=== PATIENT | male | born 1945 | race Caucasian/White ===

== ENCOUNTER 2016-12-20 16:56 | Emergency (ER) | payer BC, MEDICARE ==
[2016-12-20 17:30] VITALS: BP 116/93
[2016-12-20] MEDS ORDERED: Tetan/Diph/Pertus SYR(Tdap)* 0.5 ML SYR(BOOSTRIX) use SYR IM ONE (17:43)
--- NOTE | 2016-12-20 17:57 | UC ---
Bite Injury/Animal HPI - HPI Summary HPI Summary: PW from own dog bite to R thumb this morning. Dog is immunized for rabies. - History of Current Complaint Chief Complaint: UCBiteInjury Stated Complaint: RIGHT THUMB LACERATION Time Seen by Provider: 12/20/16 17:40 Hx Obtained From: Patient Severity Currently: Mild Severity Initially: Mild Onset/Duration: Sudden Onset Type of Bite: Animal Has Animal Been Immunized?: Yes Character: Puncture Aggravating Factor(s): Nothing Alleviating Factor(s): Nothing Associated Signs And Symptoms: Positive: Negative Animal Available for Observation: Yes Animal Control Notified: Yes - Allergies/Home Medications Allergies/Adverse Reactions: Allergies Allergy/AdvReac Type Severity Reaction Status Date / Time Codeine AdvReac Constipatio Verified 12/20/16 17:30 n PMH/Surg Hx/FS Hx/Imm Hx Endocrine History Of: Reports: Thyroid Disease - hypo - Surgical History Surgical History: Yes Surgery Procedure, Year, and Place: double hernia (inguinal). HEMORROID BANDING. pilonidal cyst. appy - Family History Known Family History: Positive: Hypertension - Social History Alcohol Use: Occasionally Alcohol Amount: once Substance Use Type: None Smoking Status (MU): Never Smoked Tobacco - Immunization History Most Recent Tetanus Shot: unknown Review of Systems Constitutional: Negative Skin: Other - PW R thumb Eyes: Negative ENT: Negative Respiratory: Negative Cardiovascular: Negative Gastrointestinal: Negative Genitourinary: Negative Motor: Negative Neurovascular: Negative Musculoskeletal: Negative Neurological: Negative Psychological: Negative All Other Systems Reviewed And Are Negative: Yes Physical Exam Triage Information Reviewed: Yes Appearance: Well-Appearing, No Pain Distress, Well-Nourished Vital Signs: Initial Vital Signs Temp 97.8 F 12/20/16 17:22 Pulse 70 12/20/16 17:22 Resp 16 12/20/16 17:22 BP 116/93 12/20/16 17:22 Pulse Ox 97 12/20/16 17:22 Vital Signs Reviewed: Yes Eye Exam: Normal Eyes: Positive: Conjunctiva Clear ENT Exam: Normal ENT: Positive: Normal ENT inspection, Hearing grossly normal, Pharynx normal, TMs normal Dental Exam: Normal Neck exam: Normal Neck: Positive: Supple, Nontender, No Lymphadenopathy Respiratory Exam: Normal Respiratory: Positive: Chest non-tender, Lungs clear, Normal breath sounds, No respiratory distress, No accessory muscle use Cardiovascular Exam: Normal Cardiovascular: Positive: RRR, No Murmur Musculoskeletal Exam: Normal Musculoskeletal: Positive: Strength Intact, ROM Intact Neurological Exam: Normal Psychological Exam: Normal Skin Exam: Other - 0.5cm PW to R thumb Bite Injury Course/Dx - Differential Dx/Diagnosis Provider Diagnoses: R thumb dog bite punture wound Discharge - Discharge Plan Condition: Stable Disposition: HOME Prescriptions: Amoxicillin/Clavulanate TAB* [Augmentin TAB 875*] 875 mg PO BID #10 tab Patient Education Materials: Animal Bite (ED) Referrals: Abi Herr PA [Primary Care Provider] - 3 Days Additional Instructions: Come back right away if there are red streaks coming up the wrist or arm or if you have increasing pain.
== END 2016-12-20 18:10 | disposition home or self-care (01) ==
LOC: UCCORT 16:56
DX: S61.031A Puncture wound without foreign body of right thumb without damage to nail, initial encounter (principal); W54.0XXA Bitten by dog, initial encounter; Y93.9 Activity, unspecified; Y92.9 Unspecified place or not applicable; Z23 Encounter for immunization; Z88.5 Allergy status to narcotic agent
CPT/HCPCS: 90715; 96372; 99212; G0463

== ENCOUNTER 2017-09-09 09:53 | Emergency (ER) | payer MEDICARE, BC ==
[2017-09-09 10:14] VITALS: BP 111/79
--- NOTE | 2017-09-09 10:51 | ED ---
Lower Extremity - HPI Summary HPI Summary: 72 yr old male with the complaint of left 4th toe injury. Onset of symptoms this morning when he was cutting his toe nails. He accidentally shaved the skin off the distal toe with the clipper. He had some bleeding but it has stopped now. He has had a tetanus shot within the past 6 months. No other complaints. - History of Current Complaint Chief Complaint: UCLowerExtremity Stated Complaint: LEFT FOOT/TOE COMPLAINT Time Seen by Provider: 09/09/17 10:37 - Allergies/Home Medications Allergies/Adverse Reactions: Allergies Allergy/AdvReac Type Severity Reaction Status Date / Time Gluten Meal Allergy Unknown Verified 09/09/17 10:10 Reaction Details Lactose Intolerance (GI) Allergy Unknown Verified 09/09/17 10:10 Reaction Details Codeine AdvReac Constipatio Verified 09/09/17 10:10 n Home Medications: Home Medications Prostate Medication 1 tab PO DAILY 09/09/17 [History] PMH/Surg Hx/FS Hx/Imm Hx Endocrine/Hematology History: Reports: Hx Thyroid Disease - Surgical History Surgery Procedure, Year, and Place: double hernia (inguinal). HEMORROID BANDING. pilonidal cyst. appy Infectious Disease History: No Infectious Disease History: Denies: Traveled Outside the [place] in Last 30 Days - Family History Known Family History: Positive: Hypertension - Social History Alcohol Use: Rare Alcohol Amount: once Substance Use Type: Reports: None Smoking Status (MU): Never Smoked Tobacco Review of Systems Constitutional: Negative Positive: Other - injury left 4th toe with clipping nails. All Other Systems Reviewed And Are Negative: Yes Physical Exam Triage Information Reviewed: Yes Vital Signs On Initial Exam: Initial Vitals Temp Pulse Resp BP Pulse Ox 97.5 F 80 16 111/79 97 09/09/17 10:09 09/09/17 10:09 09/09/17 10:09 09/09/17 10:09 09/09/17 10:09 Vital Signs Reviewed: Yes Appearance: Positive: Well-Appearing, No Pain Distress Skin: Positive: Other - left 4th toe distal tip with abrasion/ scraping of skin off the tip and bleeding controlled. This is not deep and does not go through the dermal layer. Head/Face: Positive: Normal Head/Face Inspection Neck: Positive: Supple Respiratory/Lung Sounds: Positive: Clear to Auscultation, Breath Sounds Present Cardiovascular: Positive: RRR. Negative: Murmur Abdomen Description: Positive: Nontender Musculoskeletal: Positive: Strength/ROM Intact Neurological: Positive: Sensory/Motor Intact, Alert, Oriented to Person Place, Time, CN Intact II-III Psychiatric: Positive: Normal - Tarik Coma Scale Best Eye Response: 4 - Spontaneous Best Motor Response: 6 - Obeys Commands Best Verbal Response: 5 - Oriented Diagnostics - Vital Signs Vital Signs Temp Pulse Resp BP Pulse Ox 09/09/17 10:09 97.5 F 80 16 111/79 97 - Laboratory Lab Statement: Any lab studies that have been ordered have been reviewed, and results considered in the medical decision making process. Lower Extremity Course/Dx - Course Course Of Treatment: 72 yr old male with shaving of skin off his distal 4th left toe. TD up to date. DC home. Clean, dressing applied by nursing. podiatry referral. - Diagnoses Provider Diagnoses: Avulsion of skin of toe Discharge - Discharge Plan Condition: Good Disposition: HOME Patient Education Materials: Acute Wound Care (ED) Referrals: Abi Herr PA [Primary Care Provider] - Alejandro Lucas DPM [Doctor of Podiatric Medicine] -
== END 2017-09-09 11:25 | disposition home or self-care (01) ==
LOC: UCCORT 09:53
DX: S91.105A Unspecified open wound of left lesser toe(s) without damage to nail, initial encounter (principal); W45.8XXA Other foreign body or object entering through skin, initial encounter; Y93.89 Activity, other specified; Y92.9 Unspecified place or not applicable; E07.9 Disorder of thyroid, unspecified; Z88.5 Allergy status to narcotic agent
CPT/HCPCS: 99212; G0463

== ENCOUNTER 2017-09-10 07:11 | Emergency (ER) | payer MEDICARE, BC ==
[2017-09-10 07:22] VITALS: BP 135/80
[2017-09-10] MEDS ORDERED: Gelfoam 12-7 ADSORBABL SPONGE* 1 EA SPONGE ONE (07:50)
[2017-09-10] MEDS ORDERED: Silver Nitrate/Potassium Nitr* 1 EA STICK ONE (07:51)
--- NOTE | 2017-09-10 08:16 | UC ---
Skin Complaint HPI - HPI Summary HPI Summary: left 4th toe skin avulsion when he was clipping his nails yesterday. It is bleeding through the dressing we placed yesterday. He is on daily baby aspirin. Denies other blood thinners. NO DM. - History of Current Complaint Chief Complaint: UCSkin Time Seen by Provider: 09/10/17 07:48 Stated Complaint: LT FOOT COMPLAINT/TOE COMPLAINT Hx Obtained From: Patient Onset/Duration: Gradual Onset, Lasting Hours Skin Exposure Onset/Duration: Hours Ago Timing: Constant Onset Severity: Moderate Current Severity: Mild Location: Discrete, Foot (Left) Aggravating Factor(s): Nothing Alleviating Factor(s): Nothing Associated Signs & Symptoms: Positive: Negative Related History: Trauma - Allergy/Home Medications Allergies/Adverse Reactions: Allergies Allergy/AdvReac Type Severity Reaction Status Date / Time Gluten Meal Allergy Unknown Verified 09/10/17 07:22 Reaction Details Lactose Intolerance (GI) Allergy Unknown Verified 09/10/17 07:22 Reaction Details Codeine AdvReac Constipatio Verified 09/10/17 07:22 n Review of Systems Skin: Other - bleeding from small wound. Is Patient Immunocompromised?: No All Other Systems Reviewed And Are Negative: Yes PMH/Surg Hx/FS Hx/Imm Hx Previously Healthy: No - Surgical History Surgical History: Yes Surgery Procedure, Year, and Place: double hernia (inguinal). HEMORROID BANDING. pilonidal cyst. appy - Family History Known Family History: Positive: Hypertension - Social History Alcohol Use: Rare Alcohol Amount: once Substance Use Type: None Smoking Status (MU): Never Smoked Tobacco - Immunization History Most Recent Influenza Vaccination: May 2017 Most Recent Tetanus Shot: 12/20/16 Physical Exam Triage Information Reviewed: Yes Appearance: Well-Appearing, No Pain Distress, Well-Nourished Vital Signs: Initial Vital Signs Temp 97.8 F 09/10/17 07:18 Pulse 83 09/10/17 07:18 Resp 18 09/10/17 07:18 BP 135/80 09/10/17 07:18 Pulse Ox 100 09/10/17 07:18 Vital Signs Reviewed: Yes Eyes: Positive: Conjunctiva Clear ENT: Positive: Normal ENT inspection. Negative: Hoarse voice Neck: Positive: Supple, Nontender, No Lymphadenopathy Respiratory: Positive: No respiratory distress, No accessory muscle use Cardiovascular: Positive: Brisk Capillary Refill Abdomen Description: Negative: Distended, Guarding Musculoskeletal: Positive: ROM Intact, No Edema Neurological: Positive: Alert, Muscle Tone Normal. Negative: Fatigued Skin Exam: Other - left tip of 4th toe small superficial avulsion of the skin. There is currently no bleeding but the gauze had dried blood. Laceration Repair - Laceration Repair 1 Description: Linear : No Repair Necessary Laceration Size After Repair: Length (cm) - o.5cm oval. Silvernitrate applied. Gel foam dressing. Modified For Repair: No Cleansing Completed Via Routine Prep: Yes Course/Dx - Diagnoses Provider Diagnoses: avulsion laceration. Bleeeding wound. silvernitrate for hemostasis. Discharge - Discharge Plan Condition: Good Disposition: HOME Patient Education Materials: Skin Avulsion (ED) Referrals: Abi Herr PA [Primary Care Provider] -
== END 2017-09-10 08:23 | disposition home or self-care (01) ==
LOC: UCCORT 07:11
DX: S91.115A Laceration without foreign body of left lesser toe(s) without damage to nail, initial encounter (principal); W45.8XXA Other foreign body or object entering through skin, initial encounter; Y93.89 Activity, other specified; Y92.9 Unspecified place or not applicable; Z79.82 Long term (current) use of aspirin; Z88.5 Allergy status to narcotic agent
CPT/HCPCS: 99213; A9270-GY; G0463

== ENCOUNTER 2017-10-14 07:59 | Emergency (ER) | payer MEDICARE, BC ==
[2017-10-14 08:14] VITALS: BP 124/75
--- NOTE | 2017-10-14 08:27 | ED ---
Respiratory - HPI Summary HPI Summary: 72 yr old male with the complaint of coughing. Onset two days ago. Denies fever, chills. He has non productive cough. He first had a runny nose two days ago. Denies SOB, CP. He is taking robitussin DM. - History of Current Complaint Chief Complaint: UCRespiratory Stated Complaint: COUGH Time Seen by Provider: 10/14/17 08:09 - Allergy/Home Medications Allergies/Adverse Reactions: Allergies Allergy/AdvReac Type Severity Reaction Status Date / Time Gluten Meal Allergy Unknown Verified 10/14/17 08:15 Reaction Details Lactose Intolerance (GI) Allergy Unknown Verified 10/14/17 08:15 Reaction Details Codeine AdvReac Constipatio Verified 10/14/17 08:15 n Home Medications: Home Medications Silodosin(NF) [Rapaflo(NF)] 8 mg PO QPM 10/14/17 [History Confirmed 10/14/17] PMH/Surg Hx/FS Hx/Imm Hx Endocrine/Hematology History: Reports: Hx Thyroid Disease - Surgical History Surgery Procedure, Year, and Place: double hernia (inguinal). HEMORROID BANDING. pilonidal cyst. appy Infectious Disease History: No Infectious Disease History: Denies: Traveled Outside the [place] in Last 30 Days - Family History Known Family History: Positive: Hypertension - Social History Occupation: Retired Alcohol Use: Rare Alcohol Amount: once Substance Use Type: Reports: None Smoking Status (MU): Never Smoked Tobacco Review of Systems Constitutional: Negative Positive: Nasal Discharge Positive: Cough. Negative: Shortness Of Breath All Other Systems Reviewed And Are Negative: Yes Physical Exam Triage Information Reviewed: Yes Vital Signs On Initial Exam: Initial Vitals Temp Pulse Resp BP Pulse Ox 98.1 F 80 18 124/75 96 10/14/17 08:12 10/14/17 08:12 10/14/17 08:12 10/14/17 08:12 10/14/17 08:12 Vital Signs Reviewed: Yes Appearance: Positive: Well-Appearing, No Pain Distress Skin: Positive: Warm, Skin Color Reflects Adequate Perfusion Head/Face: Positive: Normal Head/Face Inspection Eyes: Positive: EOMI ENT: Positive: Pharyngeal erythema, Nasal congestion, TMs normal Respiratory/Lung Sounds: Positive: Clear to Auscultation, Breath Sounds Present Cardiovascular: Positive: RRR. Negative: Murmur Abdomen Description: Positive: Nontender Musculoskeletal: Positive: Strength/ROM Intact Neurological: Positive: Sensory/Motor Intact, Alert, Oriented to Person Place, Time, CN Intact II-III Psychiatric: Positive: Normal - Tarik Coma Scale Best Eye Response: 4 - Spontaneous Best Motor Response: 6 - Obeys Commands Best Verbal Response: 5 - Oriented Diagnostics - Vital Signs Vital Signs Temp Pulse Resp BP Pulse Ox 10/14/17 08:12 98.1 F 80 18 124/75 96 - Laboratory Lab Statement: Any lab studies that have been ordered have been reviewed, and results considered in the medical decision making process. Disposition - Course Course Of Treatment: 72 yr old with cough, self limited. influenza is negative. DC home good condition. - Diagnoses Provider Diagnoses: Cough Discharge - Discharge Plan Condition: Good Disposition: HOME Patient Education Materials: Upper Respiratory Infection (ED) Referrals: Abi Herr PA [Primary Care Provider] - 2 Days
== END 2017-10-14 09:06 | disposition home or self-care (01) ==
LOC: UCCORT 07:59
DX: R05 Cough (principal); E73.9 Lactose intolerance, unspecified; Z91.018 Allergy to other foods; Z88.5 Allergy status to narcotic agent
CPT/HCPCS: 87502; 99211; G0463

== ENCOUNTER 2018-02-16 14:36 | Emergency (ER) | payer MEDICARE, BC ==
[2018-02-16 15:31] VITALS: BP 108/69
--- NOTE | 2018-02-16 16:25 | UC ---
Ear Complaint HPI - HPI Summary HPI Summary: patient is here to have left ear flushed - History of Current Complaint Chief Complaint: UCEar Stated Complaint: WAX IN EAR Time Seen by Provider: 02/16/18 15:20 Hx Obtained From: Patient Onset/Duration: Gradual Onset Pain Intensity: 0 Pain Scale Used: 0-10 Numeric Aggravating Factors: Nothing Alleviating Factors: Nothing - Allergies/Home Medications Allergies/Adverse Reactions: Allergies Allergy/AdvReac Type Severity Reaction Status Date / Time MS Gluten Meal [Gluten Meal] Allergy Unknown Verified 02/16/18 15:32 Reaction Details MS Lactose Intolerance (GI) Allergy Unknown Verified 02/16/18 15:32 [Lactose Intolerance (GI)] Reaction Details codeine AdvReac Constipatio Verified 02/16/18 15:32 n PMH/Surg Hx/FS Hx/Imm Hx Previously Healthy: No Endocrine History: Hypothyroidism - Surgical History Surgical History: Yes Surgery Procedure, Year, and Place: double hernia (inguinal). HEMORROID BANDING. pilonidal cyst. appy - Family History Known Family History: Positive: Hypertension - Social History Occupation: Retired Lives: With Family Alcohol Use: None Alcohol Amount: once Substance Use Type: None Smoking Status (MU): Never Smoked Tobacco - Immunization History Most Recent Influenza Vaccination: May 2017 Most Recent Tetanus Shot: 12/20/16 Review of Systems Constitutional: Negative Skin: Negative Eyes: Negative ENT: Negative, Other - cerumen impaction left ear Respiratory: Negative Cardiovascular: Negative Gastrointestinal: Negative Genitourinary: Negative Motor: Negative Neurovascular: Negative Musculoskeletal: Negative Neurological: Negative Psychological: Negative Is Patient Immunocompromised?: No All Other Systems Reviewed And Are Negative: Yes Physical Exam Triage Information Reviewed: Yes Appearance: Well-Appearing, No Pain Distress, Well-Nourished Vital Signs: Initial Vital Signs Temp 98.1 F 02/16/18 15:29 Pulse 75 02/16/18 15:29 Resp 18 02/16/18 15:29 BP 108/69 02/16/18 15:29 Pulse Ox 98 02/16/18 15:29 Vital Signs Reviewed: Yes Eye Exam: Normal Eyes: Positive: Conjunctiva Clear ENT Exam: Normal ENT: Positive: Normal ENT inspection, Hearing grossly normal, Pharynx normal, TMs normal - after flushing, Other - inital assessment both ears with cerumen--- . Negative: Nasal congestion, Nasal drainage, Trismus, Muffled voice, Hoarse voice Dental Exam: Normal Neck exam: Normal Neck: Positive: Supple, Nontender Respiratory Exam: Normal Respiratory: Positive: No respiratory distress, No accessory muscle use Cardiovascular Exam: Normal Cardiovascular: Positive: Pulses Normal, Brisk Capillary Refill Musculoskeletal Exam: Normal Musculoskeletal: Positive: Strength Intact, ROM Intact, No Edema Neurological Exam: Normal Neurological: Positive: Alert, Muscle Tone Normal Psychological Exam: Normal Skin Exam: Normal Ear Complaint Course/Dx - Course Course Of Treatment: patient reports resolve of symptoms, d/c to home follow with pcp - Differential Dx/Diagnosis Provider Diagnoses: Bilateral cerumen impaction resolved Discharge - Sign-Out/Discharge Documenting (check all that apply): Discharge/Admit/Transfer - Discharge Plan Condition: Stable Disposition: HOME Patient Education Materials: Cerumen Impaction (ED) Referrals: Abi Herr PA [Primary Care Provider] - If Needed - Billing Disposition and Condition Condition: STABLE Disposition: HOME
== END 2018-02-16 16:12 | disposition home or self-care (01) ==
LOC: UCCORT 14:36
DX: H61.23 Impacted cerumen, bilateral (principal); Z88.5 Allergy status to narcotic agent
CPT/HCPCS: 99213; G0463

== ENCOUNTER 2018-06-24 10:48 | Emergency (ER) | payer MEDICARE, BC ==
[2018-06-24 13:26] VITALS: BP 129/76
--- NOTE | 2018-06-24 13:46 | UC ---
Skin Complaint HPI - HPI Summary HPI Summary: patient hit right forearm on the railing, sustaining a skin tear, the skin over the wound is no longer attached, wound is very superficial UTD on tetanus - History of Current Complaint Chief Complaint: UCLaceration Time Seen by Provider: 06/24/18 13:27 Stated Complaint: RIGHT FOREARM WOUND Hx Obtained From: Patient Onset/Duration: Sudden Onset, Lasting Hours Skin Exposure Onset/Duration: Hours Ago Timing: Constant Onset Severity: Mild Current Severity: None Pain Intensity: 0 Location: Discrete - right forearm Aggravating Factor(s): Nothing - Allergy/Home Medications Allergies/Adverse Reactions: Allergies Allergy/AdvReac Type Severity Reaction Status Date / Time MS Gluten Meal [Gluten Meal] Allergy Unknown Verified 02/16/18 15:32 Reaction Details MS Lactose Intolerance (GI) Allergy Unknown Verified 02/16/18 15:32 [Lactose Intolerance (GI)] Reaction Details codeine AdvReac Constipatio Verified 02/16/18 15:32 n Review of Systems Constitutional: Negative Skin: Other - wound Eyes: Negative ENT: Negative Respiratory: Negative Cardiovascular: Negative Gastrointestinal: Negative Genitourinary: Negative Motor: Negative Neurovascular: Negative Musculoskeletal: Negative Neurological: Negative Psychological: Negative Is Patient Immunocompromised?: No All Other Systems Reviewed And Are Negative: Yes PMH/Surg Hx/FS Hx/Imm Hx Previously Healthy: Yes - Surgical History Surgical History: Yes Surgery Procedure, Year, and Place: double hernia (inguinal). HEMORROID BANDING. pilonidal cyst. appy - Family History Known Family History: Positive: Hypertension - Social History Alcohol Use: Rare Alcohol Amount: once Substance Use Type: None Smoking Status (MU): Never Smoked Tobacco - Immunization History Most Recent Influenza Vaccination: May 2017 Most Recent Tetanus Shot: 12/20/16 Physical Exam Triage Information Reviewed: Yes Appearance: Well-Appearing, Well-Nourished, Pain Distress Vital Signs: Initial Vital Signs Temp 98.4 F 06/24/18 13:18 Pulse 73 06/24/18 13:18 Resp 17 06/24/18 13:18 BP 129/76 06/24/18 13:18 Pulse Ox 98 06/24/18 13:18 Eye Exam: Normal ENT Exam: Normal Dental Exam: Normal Respiratory Exam: Normal Respiratory: Positive: Chest non-tender, Lungs clear, Normal breath sounds Cardiovascular Exam: Normal Cardiovascular: Positive: RRR, No Murmur, Pulses Normal Abdominal Exam: Normal Abdomen Description: Positive: Nontender, No Organomegaly, Soft Musculoskeletal Exam: Normal Neurological Exam: Normal Psychological Exam: Normal Skin: Positive: significant lesion(s) - 2x2cm skin tear Laceration Repair - Laceration Repair 1 Description: Irregular : No Repair Necessary Laceration Size After Repair: Length (cm) - 2 cm x 2 cm skin tear Modified For Repair: No Cleansing Completed Via Routine Prep: Yes Irrigation With Pressure Irrigation Device: No Course/Dx - Course Course Of Treatment: hx obtained, exam performed, meds reviewed, wound cleansed and dressed. - Diagnoses Provider Diagnoses: skin tear Discharge - Sign-Out/Discharge Documenting (check all that apply): Patient Departure All imaging exams completed and their final reports reviewed: Yes - Discharge Plan Condition: Stable Disposition: HOME Patient Education Materials: Skin Tear (ED) Referrals: Abi Herr PA [Primary Care Provider] - Additional Instructions: 1. keep area clean and dry, continue with the Vaseline guaze for 3-4 days and then allow it to dry out. 2. watch for signs of infection, redness swelling, drainage, increased pain or fever. if theyse develop see a doctor. - Billing Disposition and Condition Condition: STABLE Disposition: Home
== END 2018-06-24 13:53 | disposition home or self-care (01) ==
LOC: UCCORT 10:48
DX: S51.811A Laceration without foreign body of right forearm, initial encounter (principal); W22.09XA Striking against other stationary object, initial encounter; Y93.9 Activity, unspecified; Y92.9 Unspecified place or not applicable; Z88.5 Allergy status to narcotic agent
CPT/HCPCS: 99212; G0463

== ENCOUNTER 2018-06-25 13:00 | Emergency (ER) | payer MEDICARE, BC ==
[2018-06-25 14:20] VITALS: BP 121/70
--- NOTE | 2018-06-25 15:20 | UC ---
Upper Extremity HPI - HPI Summary HPI Summary: 72-year-old male with abrasion to the right forearm yesterday, presents for wound check and dressing checked because he was concerned. Denies any increased pain or bleeding. No weakness. - History of Current Complaint Chief Complaint: UCUpperExtremity Stated Complaint: RE-CK RIGHT ARM Pain Intensity: 0 - Allergies/Home Medications Allergies/Adverse Reactions: Allergies Allergy/AdvReac Type Severity Reaction Status Date / Time gluten Allergy Unknown Verified 06/25/18 14:16 Reaction Details lactose Allergy Unknown Verified 06/25/18 14:16 Reaction Details codeine AdvReac Constipatio Verified 06/25/18 14:16 n PMH/Surg Hx/FS Hx/Imm Hx - Additional Past Medical History Additional PMH: Inguinal hernia, pilonidal cyst Previously Healthy: Yes - Surgical History Surgical History: Yes Surgery Procedure, Year, and Place: double hernia (inguinal). HEMORROID BANDING. pilonidal cyst. appy - Family History Known Family History: Positive: Hypertension - Social History Alcohol Use: Rare Alcohol Amount: once Substance Use Type: None Smoking Status (MU): Never Smoked Tobacco - Immunization History Most Recent Influenza Vaccination: May 2017 Most Recent Tetanus Shot: 12/20/16 Review of Systems Constitutional: Negative Skin: Other - Wound on the right forearm Motor: Negative Neurovascular: Negative Musculoskeletal: Negative All Other Systems Reviewed And Are Negative: Yes Physical Exam - Summary Physical Exam Summary: Gen: alert, in no acute distress HEENT: EOMI, normocephalic, atruamatic CV: Normal s1 s2, no murmurs Resp: normal breath sounds b/l Musculoskeletal: normal ROM all 4 extremities, normal distal neurovascular exam of the hands bilaterally Neuro: no obvious focal neurological deficits Skin: no rash, small abrasion on the right forearm, dressings intact and replaced today Lymph: no lymphadenopathy Psych: appropriate affect, oriented Triage Information Reviewed: Yes Vital Signs: Initial Vital Signs Temp 36.6 C 06/25/18 14:12 Pulse 75 06/25/18 14:12 Resp 14 06/25/18 14:12 BP 121/70 06/25/18 14:12 Pulse Ox 97 06/25/18 14:12 Upper Extremity Course/Dx - Course Course Of Treatment: Wound appears well healing, dressing replaced with bacitracin ointment today, instructed to replace dressing and ointment on a daily basis. Agrees and understands discharge instructions. - Differential Dx/Diagnosis Provider Diagnoses: Wound reevaluation Discharge - Sign-Out/Discharge Documenting (check all that apply): Patient Departure All imaging exams completed and their final reports reviewed: No Studies - Discharge Plan Condition: Stable Disposition: HOME Patient Education Materials: Abrasion (ED) Referrals: Abi Herr PA [Primary Care Provider] - Additional Instructions: PLEASE KEEP AREA CLEAN AND DRY, REPLACE DRESSINGS DAILY RETURN FOR ANY WORSENING OR CONCERNING SYMPTOMS PLEASE MAKE AN APPOINTMENT TO BE SEEN BY YOUR PRIMARY CARE DOCTOR WITHIN 1-2 WEEKS - Billing Disposition and Condition Condition: STABLE Disposition: Home
== END 2018-06-25 15:25 | disposition home or self-care (01) ==
LOC: UCCORT 13:00
DX: Z51.89 Encounter for other specified aftercare (principal); S50.811A Abrasion of right forearm, initial encounter
CPT/HCPCS: 99211; G0463

== ENCOUNTER 2018-10-25 07:35 | Emergency (ER) | payer MEDICARE, BC ==
--- OUTSIDE RECORDS SUMMARY | 2018-10-25 07:44 | XMS REPORT | Continuity of Care Document ---
:1945 External Reference #:[id number] Author Name Gifty Costa MD Address [address] [place] [address] Care Team Providers Name Role Phone Abi Herr RPAC Care Team Information Forensics Analyst Unavailable Abi Herr RPAC Primary Care Physician Unavailable Payers Type Date Identification Numbers Payment Provider Subscriber Policy Number: [id number] Medicare Xin Monterroso PayID: [id number] [address] [place] [address] Effective: 2007 Policy Number: [id number] [facility] Xin Monterroso Group Name: [facility] [address] [address] PayID: [id number] [place] [address] Advance Directives Description No Information Available Problems Date Description Provider Status Onset: 08/04/2014 Internal hemorrhoids Abi Herr RPAC Active Onset: 03/11/2014 Irritable bowel syndrome Abi Herr RPAC Active characterized by constipation Onset: 06/24/2013 Cataract Abi Herr RPAC Active Onset: 06/24/2013 Glaucoma Abi Herr RPAC Active Onset: 07/12/2011 Developmental delay Abi Herr RPAC Active Onset: 07/12/2011 [facility]vert[facility] Onset: 07/12/2011 Cough variant [facility] Onset: 07/12/2011 Gastritis [facility] Active Note: Hiatal hernia Onset: 07/12/2011 Hypothyroidism [facility] Active Onset: 12/21/2015 Benign prostatic hypertrophy [facility] Active outflow obstruction Note: mild increase of PSA Onset: 01/11/2017 Flatulence, eructation and gas pain Jaciel Graham MD Active Onset: 06/23/2017 Atrophic gastritis Jaciel Graham MD Active Onset: 12/12/2017 Eustachian tube disorder [facility] Active Onset: 01/17/2018 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 Active prostate Onset: 07/12/2011 Pure hyperglyceridemia [facility] Inactive Inactive: 03/14/2018 Onset: 01/11/2017 Mixed hyperlipidemia Jaciel Graham MD Inactive Inactive: 03/14/2018 Onset: 07/03/2017 Other superficial bite of right [facility] Resolved forearm, initial encounter Resolved: 11/13/2017 Onset: 09/12/2017 Open wound of toe without Venkat Cameron M.D. Resolved complication Resolved: 11/13/2017 Family History Date Family Member(s) Problem(s) Comments General Non Contributory Father Heart Disease Mouth cancer, pipe smoker. Alcohol abuse Mother Heart Disease Mother Arthritis First Brother Lung Cancer First Brother CAD Social History Type Date Description Comments Sex Unknown Lives With Alone Home Environment Lives Alone Diet Healthy, Well Balanced Occupation Retired Work Status Retired ADL's/IADL's Independent with all ADL's ETOH Use Occasionally consumes alcohol Tobacco Use Start: Unknown Patient has never smoked Recreational Drug Use Denies Drug Use Smoking Status Reviewed: 10/17/18 Patient has never smoked Allergies, Adverse Reactions, Alerts Date Description Reaction Status Severity Comments 03/11/2014 Codeine constipation Active 03/14/2016 Tamsulosin diarrhea Active 12/26/2016 Augmentin diarrhea Active 08/30/2017 Amoxicillin unknown Active 01/11/2017 Penicillin Active Medications Medication Date Status Form Strength Qnty SIG Indications Ordering Provider Montelukast 09/24 Active Tablets 10mg 90tab 1 by mouth Costello, Sodium /2017 s every day Chante See Tamsulosin HCL 08/21 Active Capsules 0.4mg 30cap 1 by mouth Tonja, /2017 s every day at [facility], bedtime Chante Simethicone 07/21 Active Capsules 125mg 4 times Williams daily n, Gabby Nuñez, CREDIT COLLECTOR Fenofibrate 07/05 Active Tablets 160mg 90tab 1 by mouth Costello, s every day Chante See Nystatin 05/23 Active Cream [id number] 30gm thin layer B35.9 Costello t/GM to affected Esa, skin on M.D. abdomen four times a day Zantac 150 06/23 Active Tablets 150mg 90tab 1 by mouth K29.50 Young Maximum /2016 s every day MD Santos Strength every morning prn Per PT Levothyroxine Active Tablets 75mcg 90tab 1 by mouth Costello, Sodium / s every day Chante See Aspirin Adult Active Tablets DR 81mg 1 by mouth Unknown Low Dose /0000 every other day Multivitamins Active Capsules 1 by mouth Unknown /0000 every day Vitamin B-12 Active Tablets 500mg 1 by mouth Unknown /0000 every day Polyethylene Active Granules 3350 QS 2 or 3 Mk, Glycol 3350 /0000 tablespofelipe Garya, by mouth DO every day mixed in juice or water Latanoprost Active Solution 0.005% 1 drop each Unknown /0000 eye at night Vitamin D3 Active Tablets 1000Unit 1 by mouth Unknown /0000 every day Probiotic Active Capsules 1 by mouth Unknown /0000 every day Buspirone HCL 07/03 Hx Tablets 5mg 90tab 1 tab by F41.9 Costello, s mouth tid Emilie See for anxiety M.D. 09/03 Rapaflo 08/30 Hx Capsules 8mg 1 cap by Unknown mouth every day Mometasone 07/14 Hx Cream 0.1% 45gm thin layer L30.9 Nixon Costello /2016 to itchy Esa, - rash three M.D. 12/12 times a day Famciclovir 07/06 Hx Tablets 500mg 21tab take 1 B02.9 Jesusita, s tablet by Diana, mouth 3 M.D. times a day for 7 days Doxycycline 07/06 Hx Capsules 100mg 20cap 1 cap by W54.0xxS Jesusita, Monohydrate /2016 s mouth twice Diana, - a day for 10 M.D. Cephalexin 11/03 Hx Tablets 500mg 30tab 1 tab (or J04.0 Pravin, s cap) by Esa, - mouth three M.D. 11/14 times a day Benzonatate 11/03 Hx Capsules 200mg 30cap 1 cap by J04.0 Pravin, s mouth three Esa, - times a day M.D. 12/06 as needed cough Desloratadine 03/23 Hx Tablets 5mg 30tab 1 tab by J30.9 Pravin, s mouth every , as M.D. needed congestion/c ough Tamsulosin HCL 12/17 Hx Capsules 0.4mg 1 cap by Nisha Diaz mouth every El - day 03/14 Vitamin D-400 06/22 Hx Tablets 400Unit 3 tabs by Mk mouth every Negrito Garay, - day DO 01/11 Azithromycin 06/22 Hx Tablets 250mg 11tab 2 tabs by R05 Mk s mouth today Negrito Garay, - then one tab DO 07/13 by mouth /2014 daily Align Hx Capsules 1 cap by Unknown / mouth every - day 01/17 Fenofibrate Hx Tablets 160mg 90tab 1 by mouth Costello, /0000 s every day Esa, - M.D. 12/12 Montelukast Hx Tablets 10mg 90tab 1 by mouth Pravin, Sodium /0000 s every day Emilie See M.D. 09/03 Krill Oil Hx Capsules 1000mg occ. Unknown /0000 - 12/12 Neomycin-Polymy Hx Suspension 3.5-23539 4-5 drops to Unknown alyce-HC /0000 -1 (b) ear canals four times a day for 1 week Ranitidine 150 00 Hx Tablets 150mg 1 by mouth Santos Maximum /0000 every day MD Jaciel Strength Linzess Hx Capsules 72mcg 1 by mouth Unknown /0000 every day Immunizations CPT Code Status Date Vaccine Reaction Lot # [id number] Given 06/16/2017 Influenza Virus Vaccine received flu vaccine Quadrivalent Iiv4 Split [place] [place] [id number] Given 12/20/2016 Tdap injection received at [facility] Q2038 Given 06/02/2016 Influenza Vaccine (Fluzone) Age 3 And Older 65605 Given 07/13/2015 Pneumococcal Conjugate [id number] Vaccine 13 Valent For Intramuscular Use Q2038 Given 05/27/2015 Influenza Vaccine (Fluzone) Age 3 And Older 45018 Given 05/30/2013 Influenza Virus Whole 41193 Given 07/27/2012 Zoster Vaccine Live Injection 67125 Given 06/13/2012 Pneumovax Injection 42701 Given 06/13/2012 flu vaccination 53413 Given 09/15/2009 H1N1 Immuniation Adminstration 32776 Given 06/24/2009 Pneumovax Injection Vital Signs Date Vital Result Comment 10/17/2018 10:30am BP Systolic Sitting Right Arm 157 mmHg BP Diastolic Sitting Right Arm 82 mmHg Body Temperature 97.4 F Heart Rate 80 /min Height 71 inches 5'11" Weight 184.00 lb BMI (Body Mass Index) 25.7 kg/m2 BSA (Body Surface Area) 2.04 m2 [place] body weight in kilograms 78 kg O2 % BldC Oximetry 93 % 09/20/2018 3:07pm BP Systolic 134 mmHg BP Diastolic 66 mmHg Body Temperature 97.8 F Heart Rate 76 /min Respiratory Rate 18 /min Weight 186.38 lb O2 % BldC Oximetry 95 % Pain Level 0 09/03/2018 9:57am BP Systolic Sitting Right Arm 137 mmHg BP Diastolic Sitting Right Arm 82 mmHg Heart Rate 78 /min Respiratory Rate 18 /min Height 71 inches 5'11" Weight 183.00 lb BMI (Body Mass Index) 25.5 kg/m2 BSA (Body Surface Area) 2.03 m2 [place] body weight in kilograms 78 kg O2 % BldC Oximetry 78 % 08/21/2018 11:40am BP Systolic 130 mmHg BP Diastolic 76 mmHg Body Temperature 97.7 F Heart Rate 71 /min Respiratory Rate 18 /min Height 71 inches 5'11" Weight 184.00 lb BMI (Body Mass Index) 25.7 kg/m2 BSA (Body Surface Area) 2.04 m2 [place] body weight in kilograms 78 kg O2 % BldC Oximetry 93 % Pain Level 0 08/03/2018 10:55am BP Systolic 111 mmHg BP Diastolic 77 mmHg Body Temperature 98.0 F Heart Rate 69 /min Respiratory Rate 18 /min Height 71 inches 5'11" Weight 183.00 lb BMI (Body Mass Index) 25.5 kg/m2 BSA (Body Surface Area) 2.03 m2 [place] body weight in kilograms 78 kg O2 % BldC Oximetry 96 % 07/03/2018 1:10pm BP Systolic 128 mmHg BP Diastolic 83 mmHg Body Temperature 97.3 F Heart Rate 83 /min Respiratory Rate 18 /min Height 71 inches 5'11" Weight 185.12 lb BMI (Body Mass Index) 25.8 kg/m2 BSA (Body Surface Area) 2.04 m2 [place] body weight in kilograms 78 kg O2 % BldC Oximetry 96 % 05/23/2018 10:27am BP Systolic Sitting Right Arm 118 mmHg BP Diastolic Sitting Right Arm 64 mmHg Body Temperature 98.3 F Heart Rate 81 /min Respiratory Rate 18 /min Height 71 inches 5'11" Weight 185.00 lb BMI (Body Mass Index) 25.8 kg/m2 BSA (Body Surface Area) 2.04 m2 [place] body weight in kilograms 78 kg O2 % BldC Oximetry 93 % ra 04/11/2018 7:45am BP Systolic Sitting Left Arm 130 mmHg BP Diastolic Sitting Left Arm 80 mmHg Heart Rate 84 /min Respiratory Rate 16 /min Height 71 inches 5'11" Weight 188.00 lb BMI (Body Mass Index) 26.2 kg/m2 BSA (Body Surface Area) 2.05 m2 [place] body weight in kilograms 78 kg 03/12/2018 9:12am BP Systolic Sitting Right Arm 118 mmHg BP Diastolic Sitting Right Arm 68 mmHg Body Temperature 93.8 F Heart Rate 70 /min reg Respiratory Rate 24 /min Height 71 inches 5'11" Weight 186.00 lb BMI (Body Mass Index) 25.9 kg/m2 BSA (Body Surface Area) 2.04 m2 [place] body weight in kilograms 78 kg O2 % BldC Oximetry 94 % 02/07/2018 9:09am BP Systolic Sitting Left Arm 124 mmHg BP Diastolic Sitting Left Arm 84 mmHg Heart Rate 66 /min Respiratory Rate 18 /min Height 71 inches 5'11" Weight 182.00 lb BMI (Body Mass Index) 25.4 kg/m2 BSA (Body Surface Area) 2.03 m2 [place] body weight in kilograms 78 kg 01/17/2018 8:56am BP Systolic Sitting Right Arm 118 mmHg BP Diastolic Sitting Right Arm 82 mmHg Heart Rate 78 /min Respiratory Rate 18 /min Height 71 inches 5'11" Weight 183.00 lb BMI (Body Mass Index) 25.5 kg/m2 BSA (Body Surface Area) 2.03 m2 [place] body weight in kilograms 78 kg O2 % BldC Oximetry 96 % 12/12/2017 11:14am BP Systolic Sitting Right Arm 112 mmHg BP Diastolic Sitting Right Arm 82 mmHg Heart Rate 72 /min Height 71 inches 5'11" Weight 184.00 lb BMI (Body Mass Index) 25.7 kg/m2 BSA (Body Surface Area) 2.04 m2 [place] body weight in kilograms 78 kg O2 % BldC Oximetry 95 % 11/10/2017 9:21am BP Systolic Sitting Left Arm 118 mmHg BP Diastolic Sitting Left Arm 80 mmHg Heart Rate 83 /min Height 71 inches 5'11" Weight 187.00 lb BMI (Body Mass Index) 26.1 kg/m2 BSA (Body Surface Area) 2.05 m2 [place] body weight in kilograms 78 kg O2 % BldC Oximetry 98 % 11/08/2017 9:59am BP Systolic Sitting Left Arm 134 mmHg BP Diastolic Sitting Left Arm 84 mmHg Heart Rate 80 /min Respiratory Rate 18 /min Height 71 inches 5'11" Weight 188.00 lb BMI (Body Mass Index) 26.2 kg/m2 BSA (Body Surface Area) 2.05 m2 [place] body weight in kilograms 78 kg 09/12/2017 1:54pm BP Systolic 130 mmHg BP Diastolic 96 mmHg Heart Rate 76 /min Respiratory Rate 14 /min Height 71 inches 5'11" Weight 188.12 lb BMI (Body Mass Index) 26.2 kg/m2 BSA (Body Surface Area) 2.05 m2 [place] body weight in kilograms 78 kg O2 % BldC Oximetry 94 % 08/30/2017 11:06am BP Systolic 129 mmHg BP Diastolic 86 mmHg Heart Rate 73 /min Respiratory Rate 18 /min Height 71 inches Weight 187.00 lb BMI (Body Mass Index) 26.1 kg/m2 07/19/2017 10:08am BP Systolic Sitting Left Arm 128 mmHg BP Diastolic Sitting Left Arm 80 mmHg Heart Rate 87 /min Respiratory Rate 16 /min Height 72 inches 6'0" Weight 189.00 lb BMI (Body Mass Index) 25.6 kg/m2 BSA (Body Surface Area) 2.08 m2 [place] body weight in kilograms 81 kg 07/14/2017 9:04am BP Systolic Sitting Right Arm 118 mmHg BP Diastolic Sitting Right Arm 62 mmHg Heart Rate 57 /min Respiratory Rate 18 /min Height 72 inches 6'0" Weight 189.00 lb BMI (Body Mass Index) 25.6 kg/m2 BSA (Body Surface Area) 2.08 m2 [place] body weight in kilograms 81 kg O2 % BldC Oximetry 92 % 07/06/2017 10:01am BP Systolic Sitting Left Arm 142 mmHg BP Diastolic Sitting Left Arm 78 mmHg Heart Rate 76 /min Respiratory Rate 18 /min Weight 190.00 lb O2 % BldC Oximetry 99 % ra 07/03/2017 2:29pm BP Systolic Sitting Left Arm 118 mmHg BP Diastolic Sitting Left Arm 58 mmHg Body Temperature 98.7 F Heart Rate 76 /min Height 72 inches 6'0" Weight 190.00 lb BMI (Body Mass Index) 25.8 kg/m2 BSA (Body Surface Area) 2.08 m2 [place] body weight in kilograms 81 kg O2 % BldC Oximetry 97 % ra 06/23/2017 9:39am BP Systolic Sitting Left Arm 146 mmHg BP Diastolic Sitting Left Arm 84 mmHg Heart Rate 94 /min Respiratory Rate 16 /min Height 72 inches 6'0" Weight 188.00 lb BMI (Body Mass Index) 25.5 kg/m2 BSA (Body Surface Area) 2.08 m2 [place] body weight in kilograms 81 kg 04/12/2017 10:21am BP Systolic Sitting Left Arm 150 mmHg BP Diastolic Sitting Left Arm 98 mmHg Heart Rate 84 /min Respiratory Rate 16 /min Height 72 inches 6'0" Weight 186.00 lb BMI (Body Mass Index) 25.2 kg/m2 BSA (Body Surface Area) 2.07 m2 [place] body weight in kilograms 81 kg 03/14/2017 9:13am BP Systolic Sitting Right Arm 124 mmHg BP Diastolic Sitting Right Arm 72 mmHg Height 72 inches 6'0" Weight 185.00 lb BMI (Body Mass Index) 25.1 kg/m2 BSA (Body Surface Area) 2.06 m2 [place] body weight in kilograms 81 kg 01/11/2017 11:14am BP Systolic Sitting Left Arm 122 mmHg BP Diastolic Sitting Left Arm 80 mmHg Heart Rate 77 /min Respiratory Rate 16 /min Height 72 inches 6'0" Weight 188.00 lb BMI (Body Mass Index) 25.5 kg/m2 BSA (Body Surface Area) 2.08 m2 12/26/2016 2:16pm BP Systolic Sitting Right Arm 126 mmHg BP Diastolic Sitting Right Arm 68 mmHg Height 72 inches 6'0" Weight 199.12 lb BMI (Body Mass Index) 27.0 kg/m2 BSA (Body Surface Area) 2.13 m2 12/06/2016 1:52pm BP Systolic 110 mmHg BP Diastolic 72 mmHg Body Temperature 98.0 F Heart Rate 87 /min Respiratory Rate 16 /min Height 72 inches 6'0" Weight 193.00 lb BMI (Body Mass Index) 26.2 kg/m2 BSA (Body Surface Area) 2.10 m2 O2 % BldC Oximetry 96 % 11/14/2016 9:04am BP Systolic 110 mmHg BP Diastolic 76 mmHg Body Temperature 97.2 F Heart Rate 80 /min Respiratory Rate 20 /min Height 72 inches 6'0" Weight 196.00 lb BMI (Body Mass Index) 26.6 kg/m2 BSA (Body Surface Area) 2.11 m2 O2 % BldC Oximetry 96 % 11/03/2016 1:08pm BP Systolic Sitting Right Arm 122 mmHg BP Diastolic Sitting Right Arm 76 mmHg Body Temperature 98.2 F Heart Rate 80 /min Height 72 inches 6'0" Weight 199.12 lb BMI (Body Mass Index) 27.0 kg/m2 BSA (Body Surface Area) 2.13 m2 O2 % BldC Oximetry 96 % 08/19/2016 9:12am BP Systolic Sitting Right Arm 128 mmHg BP Diastolic Sitting Right Arm 70 mmHg Height 72 inches 6'0" Weight 202.00 lb BMI (Body Mass Index) 27.4 kg/m2 BSA (Body Surface Area) 2.14 m2 07/26/2016 9:44am BP Systolic Sitting Right Arm 122 mmHg BP Diastolic Sitting Right Arm 72 mmHg Height 72 inches 6'0" Weight 200.06 lb BMI (Body Mass Index) 27.1 kg/m2 BSA (Body Surface Area) 2.13 m2 07/14/2016 9:38am BP Systolic Sitting Right Arm 122 mmHg BP Diastolic Sitting Right Arm 76 mmHg Height 72 inches 6'0" Weight 199.12 lb BMI (Body Mass Index) 27.0 kg/m2 BSA (Body Surface Area) 2.13 m2 03/23/2016 9:14am BP Systolic Sitting Right Arm 154 mmHg BP Diastolic Sitting Right Arm 84 mmHg Height 72 inches 6'0" Weight 194.00 lb BMI (Body Mass Index) 26.3 kg/m2 BSA (Body Surface Area) 2.10 m2 O2 % BldC Oximetry 97 % 03/14/2016 9:41am BP Systolic 122 mmHg BP Diastolic 68 mmHg Height 72 inches 6'0" Weight 195.12 lb BMI (Body Mass Index) 26.5 kg/m2 BSA (Body Surface Area) 2.11 m2 [place] body weight in kilograms 81 kg 11/13/2015 9:28am BP Systolic Sitting Left Arm 142 mmHg BP Diastolic Sitting Left Arm 70 mmHg Weight 194.44 lb 07/13/2015 9:15am BP Systolic 122 mmHg BP Diastolic 68 mmHg Weight 184.12 lb 06/22/2015 11:33am BP Systolic 124 mmHg BP Diastolic 68 mmHg Body Temperature 97.8 F Weight 182.00 lb 03/12/2015 9:49am Heart Rate 73 /min Weight 181.00 lb 11/10/2014 9:13am BP Systolic 120 mmHg BP Diastolic 82 mmHg Heart Rate 76 /min Height 72 inches 6'0" Weight 181.00 lb 08/12/2014 2:19pm BP Systolic 122 mmHg BP Diastolic 72 mmHg Height 72 inches 6'0" Weight 182.00 lb 08/04/2014 10:37am BP Systolic 140 mmHg BP Diastolic 82 mmHg Heart Rate 80 /min Height 72 inches 6'0" Weight 184.00 lb 07/08/2014 8:58am BP Systolic 134 mmHg BP Diastolic 72 mmHg Height 72 inches 6'0" Weight 185.00 lb 03/11/2014 9:08am BP Systolic 112 mmHg BP Diastolic 70 mmHg Height 72 inches 6'0" Weight 179.00 lb 01/07/2014 2:44pm BP Systolic 128 mmHg BP Diastolic 72 mmHg Height 72 inches 6'0" Weight 181.00 lb 12/24/2013 1:12pm BP Systolic 132 mmHg BP Diastolic 74 mmHg Body Temperature 98.2 F Height 72 inches 6'0" Weight 185.00 lb 11/11/2013 9:15am BP Systolic 130 mmHg BP Diastolic 70 mmHg Height 72 inches 6'0" Weight 185.00 lb 09/09/2013 10:08am BP Systolic 126 mmHg BP Diastolic 72 mmHg Height 72 inches 6'0" Weight 186.00 lb 07/09/2013 2:15pm BP Systolic 118 mmHg BP Diastolic 66 mmHg Height 72 inches 6'0" Weight 181.00 lb 06/14/2013 1:42pm BP Systolic 118 mmHg BP Diastolic 72 mmHg Height 72 inches 6'0" Weight 183.00 lb 06/06/2013 10:09am BP Systolic 124 mmHg BP Diastolic 74 mmHg Body Temperature 97.4 F Heart Rate 88 /min Respiratory Rate 18 /min Height 72 inches 6'0" Weight 184.00 lb 03/04/2013 3:13pm BP Systolic 120 mmHg BP Diastolic 70 mmHg Height 72 inches 6'0" Weight 183.00 lb 11/05/2012 8:58am BP Systolic 122 mmHg BP Diastolic 72 mmHg Height 72 inches 6'0" Weight 195.00 lb 07/02/2012 9:02am BP Systolic 132 mmHg BP Diastolic 78 mmHg Weight 200.00 lb 05/15/2012 10:32am BP Systolic 122 mmHg BP Diastolic 72 mmHg Body Temperature 97.4 F Weight 186.00 lb 03/01/2012 11:44am BP Systolic 142 mmHg BP Diastolic 76 mmHg Body Temperature 97.4 F Weight 194.00 lb 12/22/2011 11:26am BP Systolic 136 mmHg BP Diastolic 70 mmHg Height 72 inches 6'0" Weight 192.00 lb 11/16/2011 11:30am BP Systolic 122 mmHg BP Diastolic 80 mmHg Height 72 inches 6'0" Weight 194.00 lb 08/16/2011 11:30am BP Systolic 118 mmHg BP Diastolic 72 mmHg Body Temperature 97.1 F Height 72 inches 6'0" Weight 192.00 lb 07/12/2011 9:00am BP Systolic 130 mmHg BP Diastolic 80 mmHg Heart Rate 72 /min Respiratory Rate 16 /min Height 72 inches 6'0" Weight 189.00 lb Results Test Date Facility Test Result H/L Range Note Ua RFX Micro & 08/21/2018 [facility] Urine Color YELLOW Yellow 1 Culture II [address] [place] [address] [phone] Urine Clarity CLEAR Clear Urine Glucose - Dipstick NEGATIVE mg/dL Negative Urine Bilirubin - Dipstick NEGATIVE Negative Urine Ketone NEGATIVE mg/dL Negative Urine Specific [place] 1.025 N 1.010-1.030 Urine Blood NEGATIVE Negative Urine PH 6.0 Low 6.5-7.5 Urine Protein - Dipstick NEGATIVE mg/dL Negative Urine Urobilinogen - Dipstick 0.2 E.U./dL N 0.2-1.0 Urine Nitrite - Dipstick NEGATIVE Negative Urine Leuk Esterase NEGATIVE Negative Source: URINE, CLEAN CAT <SEE NOTE> 2 Urine Dipstick 08/21/2018 [facility] Ua Color Yellow Yellow Ua Clarity Clear Clear Ua Leuko Negative Negative Ua Nitrite Negative Negative Ua Urobilinogen 0.2 0.2 - 1.0 E.U./dL Ua Protein Negative Negative Ua PH 5.0 Low 6.5-7.5 Ua Blood 10 High Negative Ua Specific [place] 1.030 1.010-1.030 Ua Ketones Negative Negative Ua Bilirubin Negative Negative Ua Glucose Negative Negative LDL Cholesterol 03/14/2018 [facility] Cholesterol 152 mg/dL <200 3, 4 Profile [address] [place] [address] [phone] Triglycerides 160 mg/dL High <150 5 HDL Cholesterol 36 mg/dL Low >40 6 LDL-Cholesterol 84 mg/dL < 100 7 Laboratory test 11/10/2017 [facility] Thyroid Stim 1.07 N 0.30-4.20 8 finding [address] [facility] Hormone uIU/[place] [address] [phone] LDL Cholesterol 11/10/2017 [facility] Cholesterol 163 mg/dL <200 9 Profile [address] [place] [address] [phone] Triglycerides 99 mg/dL <150 10 HDL Cholesterol 23 mg/dL Low >40 11 LDL-Cholesterol 120 mg/dL < 100 12 Comprehensive Metabolic 11/09/2017 [facility] Glucose 92 mg/dL N 74-106 13 Panel [address] [place] [address] [phone] BUN 26 mg/dL High 7-18 Creatinine 1.4 mg/dL High 0.6-1.3 Glom Filtration Rate, Estimate 53 mL/min >60 If >60 mL/min >60 14 BUN/Creat 18.5 ratio Sodium 141 mmol/L N 136-145 Potassium 4.3 mmol/L N 3.5-5.1 Chloride 108 mmol/L High 98-107 Carbon Dioxide 28 mmol/L N 21-32 Anion Gap 5 mEq/L Low 8-16 Calcium 9.5 mg/dL N 8.5-10.1 Total Protein 7.6 g/dL N 6.4-8.2 Albumin 3.9 g/dL N 3.4-5.0 Globulin 3.7 g/dL N 1.9-4.3 Alb/Glob 1.1 ratio Bilirubin,Total 0.5 mg/dL N 0.2-1.0 Sgot/Ast 31 U/L N 15-37 SGPT/Alt 26 U/L N 12-78 Alkaline Phosphatase 61 U/L N 45-117 CBS W/Automated Diff 11/09/2017 [facility] White Blood 5.4 K/uL N 3.4-10.[address] [place] [address] [phone] Red Blood Count 4.29 M/uL N 4.20-5.80 Hemoglobin 15.6 gm/dL N 12.8-17.0 Hematocrit 44.9 % N 38.0-48.0 Mean Cell Volume 104.7 fl High 80.0-96.0 Mean Corpuscular HGB 36.4 pg High 27.0-33.0 Mean Corpuscular HGB Conc 34.7 g/dL N 31.7-36.0 Platelet Count 191 K/uL N 155-360 Red Cell Distri Width SD 50.2 fl N 36-51 Red Cell Distri Width %CV 13.1 % N 11.6-15.8 Mean Platelet Volume 10.7 fL High 6.6-10.6 Neut% 52.0 % N 33.0-73.0 Lymph % 36.5 % N 20.0-42.0 [place]eman % 9.1 % N 0.0-10.0 Eo% 2.0 % N 0.0-6.6 Bas% 0.4 % N 0.0-1.1 Neut# 2.80 K/uL N 1.8-7.0 Lymph # 1.97 K/uL N 1.0-4.0 Hod[place]eman # 0.49 K/uL N 0.0-0.8 Eos # 0.11 K/uL N 0.0-0.5 Baso # 0.02 K/uL N 0.0-0.1 Rapid Influenza 10/14/2017 [facility] Influenza A NEGATIVE Negative 15 A & B Molecular [phone] Molecular Influenza B Molecular NEGATIVE Negative 230 Ua Routine 08/30/2017 N2N/CCD Import Ua PH 7.0 1 5.0-7.5 Ua Specific [place] 1.010 1 1.003-1.030 Ua Urobilinogen 0.2 E.U./dL 0.0-1.0 Laboratory test 04/19/2017 [facility] Prostate 1.50 ng/mL < 4.0 16, 17 finding [address] [place] [address] Antigen [phone] Testosterone,Serum 354 ng/dL [phone] 18 LDL Cholesterol 03/14/2017 [facility] Cholesterol 212 mg/dL High <200 19, 20 Profile [address] [place], [place] [id number] [phone] Triglycerides 150 mg/dL <150 21 HDL Cholesterol 43 mg/dL >40 22 LDL-Cholesterol 139 mg/dL < 100 23 Liver Function Tests 03/14/2017 [facility] Total Protein 7.4 g/dL N 6.4-8.2 [address] [place], [place] [id number] [phone] Albumin 3.9 g/dL N 3.4-5.0 Globulin 3.5 g/dL N 1.9-4.3 Alb/Glob 1.1 ratio Bilirubin,Total 0.4 mg/dL N 0.2-1.0 Bilirubin,Direct < 0.1 mg/dL N 0.0-0.2 Bilirubin,Indirect 0.3 mg/dL N 0.0-0.9 Sgot/Ast 18 U/L N 15-37 SGPT/Alt 21 U/L N 12-78 Alkaline Phosphatase 64 U/L N 45-117 CBS W/Automated Diff 03/14/2017 [facility] White Blood 6.2 K/uL N 3.4-10.[address] [place] [address] [phone] Red Blood Count 4.17 M/uL Low 4.20-5.80 Hemoglobin 15.0 gm/dL N 12.8-17.0 Hematocrit 43.1 % N 38.0-48.0 Mean Cell Volume 103.4 fl High 80.0-96.0 Mean Corpuscular HGB 36.0 pg High 27.0-33.0 Mean Corpuscular HGB Conc 34.8 g/dL N 31.7-36.0 Platelet Count 242 K/uL N 150-400 Red Cell Distri Width SD 49.6 fl N 36-51 Red Cell Distri Width %CV 13.2 % N 11.6-15.8 Mean Platelet Volume 10.2 fL N 6.6-10.6 Neut% 62.4 % N 33.0-73.0 Lymph % 27.9 % N 20.0-42.0 Hodgeman % 8.8 % N 0.0-10.0 Eo% 0.6 % N 0.0-6.6 Bas% 0.3 % N 0.0-1.1 Neut# 3.85 K/uL N 1.8-7.0 Lymph # 1.72 K/uL N 1.0-4.0 Hodgeman # 0.54 K/uL N 0.0-0.8 Eos # 0.04 K/uL N 0.0-0.5 Baso # 0.02 K/uL N 0.0-0.1 Laboratory 03/14/2017 [facility] Thyroid Stim 1.25 uIU/mL N 0.30-4.20 test finding [address] [place] [address] [phone] Laboratory 01/16/2017 [facility] H. Pylori Stool Negative Negative 24, test finding [address] Antigen 25 [place] [address] [phone] Celiac 01/11/2017 [facility] Immunoglobulin A 266 mg/dL 61-437 Disease Comp [address] [place] [address] [phone] Antigliadin Abs, IgG 4 units 0-19 26 Antigliadin Abs, IgA 5 units 0-19 27 Endomysial IgA Antibody Negative Negative t-Transglutaminase IgA <2 U/mL 0-3 28 t-Transglutaminase IgG <2 U/mL 0-5 29 Laboratory test 10/18/2016 [facility] Prostate 1.91 N < 4.0 30, [address] Specific ng/[place] [address] Antigen [phone] LDL Cholesterol 07/14/2016 [facility] Cholesterol 191 mg/dL N <200 32, [address] [place] [address] [phone] Triglycerides 270 mg/dL High <150 34 HDL Cholesterol 36 mg/dL Low >40 35 LDL-Cholesterol 101 mg/dL N < 100 36 Is Patient Fasting? Unknown Liver Function Tests 07/14/2016 [facility] Total Protein 7.0 g/dL N 6.4-8.[address] [place], [place] [id number] [phone] Albumin 3.8 g/dL N 3.4-5.0 Globulin 3.2 g/dL N 1.9-4.3 Alb/Glob 1.2 ratio N Bilirubin,Total 0.3 mg/dL N 0.2-1.0 Bilirubin,Direct < 0.1 mg/dL N 0.0-0.2 Bilirubin,Indirect 0.2 mg/dL N 0.0-0.9 Sgot/Ast 20 U/L N 15-37 SGPT/Alt 22 U/L N 12-78 Alkaline Phosphatase 69 U/L N 45-117 Is Patient Fasting? Unknown Laboratory 07/14/2016 [facility] Vitamin 29.9 Low 30.0-100.0 37 test finding [address] D,25-Hydroxy ng/mL [place], [place] [id number] [phone] Laboratory 03/15/2016 [facility] Thyroid Stim 1.17 0.30-4.20 test finding [address] Hormone uIU/[place] [address] [phone] Liver - 11/16/2015 [facility] Total Protein 7.1 g/dL N 6.4-8.9 Hepatic Panel [phone] Albumin 4.4 g/dL N 3.2-5.2 Globulin 2.7 g/dL N 2-4 Albumin/Globulin Ratio 1.6 N 1-3 Total Bilirubin 0.50 mg/dL N 0.2-1.0 Direct Bilirubin 0.10 mg/dL N 0.03-0.18 Indirect Bilirubin 0.4 mg/dL N 0.3-1.0 Alkaline Phosphatase 54 U/L N 34-104 Alt 12 U/L N 7-52 Ast 20 U/L N 13-39 Laboratory test 11/16/2015 [facility] LDL Cholesterol 128 mg/dL N 38 finding [phone] Direct Liver Function 07/14/2015 [facility] Total Protein 7.5 g/dL 6.4-8. Tests [address] [address] [phone] Albumin 4.0 g/dL 3.4-5.0 Globulin 3.5 g/dL 1.9-4.3 Alb/Glob 1.1 ratio Bilirubin,Total 0.3 mg/dL 0.2-1.0 Bilirubin,Direct < 0.1 mg/dL 0.0-0.2 Bilirubin,Indirect 0.2 mg/dL 0.0-0.9 Sgot/Ast 22 U/L 15-37 SGPT/Alt 25 U/L 12-78 Alkaline Phosphatase 72 U/L 45-117 LDL Cholesterol 07/14/2015 [facility] Cholesterol 178 mg/dL < 200 39 Profile [address] [place], [place] [id number] [phone] Triglycerides 102 mg/dL < 150 40 HDL Cholesterol 40 mg/dL > 40 41 LDL-Cholesterol 118 mg/dL < 100 42 Laboratory test 07/14/2015 [facility] Thyroid Stim 1.08 uIU/mL 0.36-3.74 finding [address] [facility] [place] [address] [phone] Vitamin D,25-Hydroxy 35.4 ng/mL 30.0-100.0 43 Laboratory test finding 11/12/2014 N2N/CCD Import CK 90 U/L 39-308 LDL Cholesterol Profile 11/12/2014 N2N/CCD Import Cholesterol 135 mg/dL < 200 44 HDL Cholesterol 32 mg/dL > 40 45 LDL-Cholesterol 79 mg/dL < 100 46 Triglycerides 119 mg/dL < 150 47 Liver Function Tests 11/12/2014 N2N/CCD Import Alb/Glob 1.1 ratio Albumin 3.8 g/dL 3.4-5.0 Alkaline Phosphatase 68 U/L 45-117 Bilirubin,Direct < 0.1 mg/dL 0.0-0.2 Bilirubin,Indirect 0.3 mg/dL 0.0-0.9 Bilirubin,Total 0.4 mg/dL 0.2-1.0 Globulin 3.4 g/dL 1.9-4.3 SGPT/Alt 20 U/L 12-78 Sgot/Ast 19 U/L 15-37 Total Protein 7.2 g/dL 6.4-8.2 Urine Culture And 08/06/2014 N2N/CCD Import Urine Culture (See Note) 48 Sensitivities Laboratory test 07/08/2014 N2N/CCD Import Free T4 1.03 ng/dL 0.76-1. finding 46 Thyroid Stim Hormone 1.69 uIU/mL 0.36-3.74 CBS W/Automated Diff 03/13/2014 N2N/CCD Import Bas% 0.6 % 0.1-1.0 Baso # 0.03 K/uL Low 0.1-0.2 Eo% 1.5 % 0.0-5.0 Eos # 0.08 K/uL 0.0-0.5 Hematocrit 45.0 % 38.0-48.0 Hemoglobin 15.9 gm/dL 12.8-17.0 Lymph # 1.64 K/uL 1.2-4.0 Lymph % 30.1 % 17.0-56.0 Mean Cell Volume 103.0 fl High 80.0-96.0 Mean Corpuscular HGB 36.4 pg High 27.0-33.0 Mean Corpuscular HGB Conc 35.3 g/dL 31.7-36.0 Mean Platelet Volume 9.9 fL 6.6-10.6 Hodgeman # 0.42 K/uL 0.0-0.6 Hodgeman % 7.7 % 0.0-10.0 Neut# 3.27 K/uL 1.8-7.0 Neut% 60.1 % 33.0-73.0 Platelet Count 231 K/uL 150-400 Red Blood Count 4.37 M/uL 4.20-5.80 Red Cell Distri Width %CV 12.8 % 11.6-15.8 Red Cell Distri Width SD 48.6 fl 36-51 White Blood Count 5.4 K/uL 3.4-10.5 LDL Cholesterol Profile 03/13/2014 N2N[facility] Import Cholesterol 149 mg/dL 120-200 HDL Cholesterol 36 mg/dL 29-83 LDL-Cholesterol 97 mg/dL 62-185 Triglycerides 80 mg/dL 16-231 Liver Function Tests 03/13/2014 N2N/[facility] Import Alb/Glob 1.2 ratio Albumin 4.1 g/dL 3.5-5.0 Alkaline Phosphatase 57 U/L 50-136 Bilirubin,Direct < 0.1 mg/dL Low 0.1-0.4 Bilirubin,Indirect 0.4 mg/dL 0.0-0.9 Bilirubin,Total 0.5 mg/dL 0.2-1.2 Globulin 3.5 g/dL 1.9-4.3 SGPT/Alt 20 U/L Low 30-65 Sgot/Ast 22 U/L 16-40 Total Protein 7.6 g/dL 6.3-8.0 Laboratory test finding 07/10/2013 N[facility] Import Creatine Kinase 50 U/L 0-200 CBC Auto Diff 07/10/2013 N[facility] Import Abs Basophils 0 10^3/uL 0-0.2 Abs Eosinophils 0.1 10^3/uL 0-0.6 Abs Lymphocytes 1.8 10^3/uL 1.0-4.8 Abs Monocytes 0.4 10^3/uL 0-0.8 Abs Neutrophils 3.6 10^3/uL 1.5-7.7 Abs Nucleated RBC 0 10^3/uL Basophil % 0.5 % 0-2 Eosinophil % 1.3 % 0-6 Granulocyte % 60.9 % 38-83 Hematocrit 47 % 42-52 Hemoglobin 16.1 g/dL 14.0-18.0 Lymphocyte % 31.0 % 25-47 Mean Corpuscular HGB Conc 34 g/dL 31-36 Mean Corpuscular Hemoglobin 36 pg High 27-31 Mean Corpuscular Volume 105 fL High 80-94 Mean Platelet Volume 8 um3 7.4-10.4 Monocyte % 6.3 % 1-9 Nucleated Red Blood Cells % 0.1 Platelet Count 225 10^3/uL 150-450 Red Blood Count 4.53 10^6/uL 4.0-5.4 Red Cell Distribution Width 13 % 10.5-15 White Blood Count 5.8 10^3/uL 4.8-10.8 Lipid Profile 07/10/2013 [facility] Import Cholesterol 177 mg/dL Less than (Trig/Chol/HDL) 200 Cholesterol/HDL Ratio 4.7 Average High 1-4.44 HDL Cholesterol 38 mg/dL Low 40-60 49 LDL Cholesterol 116.8 High Less Than 100 50 Triglycerides 111 mg/dL 40-200 Liver Function Panel 07/10/2013 N[facility] Import Albumin 4.1 g/dL 3.2-5.2 Albumin/Globulin Ratio 1.6 1-3 Alkaline Phosphatase 44 U/L 30-110 Alt 14 U/L 14-54 Ast 23 U/L 12-42 Direct Bilirubin 0.1 mg/dL 0.1-0.5 Globulin 2.6 g/dL 2-4 Indirect Bilirubin 0.4 mg/dL 0.3-1.0 Total Bilirubin 0.5 mg/dL 0.4-1.5 Total Protein 6.7 g/dL 6.2-8.1 Laboratory test 06/06/2013 [facility] Import TSH (Thyroid 1.80 miu/mL 0.34- 5.60 finding Stimulating Horm) Lipid Profile 02/11/2013 [facility] Import Cholesterol 145 mg/dL Less than 200 (Trig/Chol/HDL) Cholesterol/HDL Ratio 3.8 Average 1-4.44 HDL Cholesterol 38 mg/dL Low 40-60 51 LDL Cholesterol 86.4 mg/dL Less Than 100 52 Triglycerides 103 mg/dL 40-200 Vitamin D, 25 02/11/2013 [facility] Import 25-Hydroxy Vitamin D 33 ng/mL 53 Hydroxy Total 25-Hydroxy Vitamin D2 4.6 ng/mL 25-Hydroxy Vitamin D3 28 ng/mL CBC Auto Diff 11/05/2012 [facility] Import Abs Basophils 0.5 10^3/uL High 0- 0.2 Abs Eosinophils 0.1 10^3/uL 0-0.6 Abs Lymphocytes 1.3 10^3/uL 1.0-4.8 Abs Monocytes 0.3 10^3/uL 0-0.8 Abs Neutrophils 3.0 10^3/uL 1.5-7.7 Abs Nucleated RBC 0.01 10^3/uL Hematocrit 47 % 42-52 Hemoglobin 15.6 g/dL 14.0-18.0 Mean Corpuscular HGB Conc 33 g/dL 31-36 Mean Corpuscular Hemoglobin 35 pg High 27-31 Mean Corpuscular Volume 105 fL High 80-94 54 Mean Platelet Volume 9 um3 7.4-10.4 Platelet Count 211 10^3/uL 150-450 Red Blood Count 4.51 10^6/uL 4.0-5.4 Red Cell Distribution Width 13 % 10.5-15 White Blood Count 5.1 10^3/uL 4.8-10.8 Lipid Profile 11/05/2012 [facility] Import Cholesterol 209 mg/dL High Less than (Trig/Chol/HDL) 200 Cholesterol/HDL Ratio 5.4 Average High 1-4.44 HDL Cholesterol 39 mg/dL Low 40-60 55 LDL Cholesterol 142.0 mg/dL High Less Than 100 56 Triglycerides 140 mg/dL 40-200 Liver Function Panel 11/05/2012 [facility] Import Albumin 4.4 g/dL 3.2-5.2 Albumin/Globulin Ratio 2.0 1-3 Alkaline Phosphatase 50 U/L 30-110 Alt 15 U/L 14-54 Ast 24 U/L 12-42 Direct Bilirubin 0.1 mg/dL 0.1-0.5 Globulin 2.2 g/dL 2-4 Indirect Bilirubin 0.7 mg/dL 0.3-1.0 Total Bilirubin 0.8 mg/dL 0.4-1.5 Total Protein 6.6 g/dL 6.2-8.1 Manual Differential 11/05/2012 [facility] Import Eosinophils % 2 % 0-6 Lymphocytes % 45 % 25-47 Monocytes % 3 % 0-13 Neutrophil % 50 % 38-83 RBC Morphology Normal Normal Laboratory test finding 07/05/2012 [facility] Import Creatine Kinase 63 U/L 0-200 TSH (Thyroid Stimulating Horm) 2.29 MIU/ML 0.34-5.60 Lipid Profile 07/05/2012 [facility] Import Cholesterol 211 mg/dL High Less than 57 (Trig/Chol/HDL) 200 Cholesterol/HDL Ratio 6.2 AVERAGE High 1-4.44 HDL Cholesterol 34 mg/dL Low 40-60 58 LDL Cholesterol 130.2 mg/dL High Less Than 100 Triglycerides 234 mg/dL High 40-200 Liver Function Panel 07/05/2012 [facility] Import Albumin 4.3 GM/DL 3.2- 5.2 Albumin/Globulin Ratio 1.7 1-3 Alkaline Phosphatase 48 U/L 30-110 Alt 15 U/L 14-54 Ast 26 U/L 12-42 Direct Bilirubin 0.1 mg/dL 0.1-0.5 Globulin 2.5 GM/DL 2-4 Indirect Bilirubin 0.5 mg/dL 0.3-1.0 Total Bilirubin 0.6 mg/dL 0.1-1.0 59 Total Protein 6.8 GM/DL 6.2-8.1 Laboratory test 03/02/2012 [facility] Import CPK (Creatine 80 U/L 0-200 finding Kinase) Lipid Profile 03/02/2012 N[facility] Import Cholesterol 199 mg/dL Less Than 60 (Trig/Chol/HDL) 200 Cholesterol/HDL Ratio 6.03 AVERAGE High 1-4.97 High Density Lipoprotein 33 mg/dL Low 40-60 61 Low Density Lipoprotein 112 mg/dL High Less Than 100 62 Triglyceride 269 mg/dL High 40-200 Liver Function Panel 03/02/2012 [facility] Import Albumin 4.0 GM/DL 3.2- 5.2 Albumin/Globulin Ratio 1.5 1-3 Alkaline Phosphatase 49 U/L 39-117 Alt (SGPT) 15 U/L Low 17-63 Ast (Sgot) 23 U/L 12-42 Bilirubin Direct 0.1 mg/dL 0.1-0.5 Bilirubin Total 0.7 mg/dL 0.4-1.5 63 Globulin 2.7 GM/DL 2-4 Indirect Bilirubin 0.6 mg/dL 0.3-1.0 64 Total Protein 6.7 GM/DL 6.2-8.1 Laboratory test 11/24/2011 [facility] Import CPK (Creatine 75 U/L 0-200 finding Kinase) Folic Acid 21.6 ng/mL See Below 65 TSH 1.48 MIU/ML 0.34-5.60 Vitamin B12 517 pg/mL 180-914 Liver Function Panel 11/24/2011 [facility] Import Albumin 4.0 GM/DL 3.2- 5.2 Albumin/Globulin Ratio 1.5 1-3 Alkaline Phosphatase 50 U/L 39-117 Alt (SGPT) 14 U/L Low 17-63 Ast (Sgot) 24 U/L 12-42 Bilirubin Direct 0.1 mg/dL 0.1-0.5 Bilirubin Total 0.5 mg/dL 0.4-1.5 66 Globulin 2.6 GM/DL 2-4 Indirect Bilirubin 0.4 mg/dL 0.3-1.0 67 Total Protein 6.6 GM/DL 6.2-8.1 Lipid Profile 11/24/2011 N2N/CCD Import Cholesterol 180 mg/dL Less Than 68 (Trig/Chol/HDL) 200 Cholesterol/HDL Ratio 6.00 AVERAGE High 1-4.97 High Density Lipoprotein 30 mg/dL Low 40-60 69 Low Density Lipoprotein 120 mg/dL High Less Than 100 70 Triglyceride 151 mg/dL 40-200 Basic Metabolic Panel 11/24/2011 N2N/CCD Import Anion Gap 5.0 mmol/L 2- 11 71 BUN 16 mg/dL 6-24 BUN/Creatinine Ratio 14.5 8-20 Calcium 9.3 mg/dL 8.1-9.9 Chloride 104 mmol/L 101-111 Co2 (Carbon Dioxide) 29.0 mmol/L 22-32 Creatinine 1.1 mg/dL 0.50-1.40 Glucose 94 mg/dL 70-100 One Over Creatinine 0.90 Potassium 4.2 mmol/L 3.5-5.0 Sodium 138 mmol/L 135-145 eGFR 85.6 > 60 72 eGFR Non- 66.6 > 60 Liver Function Panel 07/18/2011 N2N/CCD Import Albumin 4.2 GM/DL 3.2- 5.2 Albumin/Globulin Ratio 1.4 1-3 Alkaline Phosphatase 51 U/L 39-117 Alt (SGPT) 16 U/L Low 17-63 Ast (Sgot) 24 U/L 12-42 Bilirubin Direct 0.1 mg/dL 0.1-0.5 Bilirubin Total 0.7 mg/dL 0.4-1.5 73 Globulin 3.1 GM/DL 2-4 Indirect Bilirubin 0.6 mg/dL 0.3-1.0 74 Total Protein 7.3 GM/DL 6.2-8.1 Lipid Profile 07/18/2011 N2N/CCD Import Cholesterol 187 mg/dL Less Than 75 (Trig/Chol/HDL) 200 Cholesterol/HDL Ratio 5.50 AVERAGE High 1-4.97 High Density Lipoprotein 34 mg/dL Low 40-60 76 Low Density Lipoprotein 121 mg/dL High Less Than 100 77 Triglyceride 162 mg/dL 40-200 Laboratory test 07/18/2011 N2N/CCD Import CPK (Creatine 76 U/L 0-200 finding Kinase) 1 R31.9 2 URINE, CLEAN CATCH 3 E78.5 4 Reference Guidelines*: Desirable: ........... < 200 mg/dL Borderline High: ..... 200-239 mg/dL High: ................ >=240 mg/dL * The National Cholesterol Education Program (NCEP) 5 Reference Guidelines*: Normal: ............. < 150 mg/dL Borderline High: .... 150-199 mg/dL High: ............... 200-499 mg/dL Very High: .......... > 500 mg/dL * Source: National Cholesterol Education Program (NCEP) 6 Reference Guidelines*: Low HDL: ..... < 40 mg/dL Normal: ..... 40-60 mg/dL Desirable: ... > 60 mg/dL *The National Cholesterol Education Program(NCEP) 7 Reference Guidelines*: Optimal:........... <100 mg/dL Near Optimal....... 100-129 mg/dL Borderline High.... 130-159 mg/dL High............... 160-189 mg/dL Very High.......... >=190 mg/dL * Source: National Cholesterol Education Program (NCEP) 8 R14.0 E03.9 E78.5 9 Reference Guidelines*: Desirable: ........... < 200 mg/dL Borderline High: ..... 200-239 mg/dL High: ................ >=240 mg/dL * The National Cholesterol Education Program (NCEP) 10 Reference Guidelines*: Normal: ............. < 150 mg/dL Borderline High: .... 150-199 mg/dL High: ............... 200-499 mg/dL Very High: .......... > 500 mg/dL * Source: National Cholesterol Education Program (NCEP) 11 Reference Guidelines*: Low HDL: ..... < 40 mg/dL Normal: ..... 40-60 mg/dL Desirable: ... > 60 mg/dL *The National Cholesterol Education Program(NCEP) 12 Reference Guidelines*: Optimal:........... <100 mg/dL Near Optimal....... 100-129 mg/dL Borderline High.... 130-159 mg/dL High............... 160-189 mg/dL Very High.......... >=190 mg/dL * Source: National Cholesterol Education Program (NCEP) 13 R14.0 14 Note: Persistent reduction for 3 months or more in an eGFR <60 mL/min/1.73 m2 defines CKD. Patients with eGFR values >/=60 mL/min/1.73 m2 may also have CKD if evidence of persistent proteinuria is present. The original MDRD equation for estimated GFR is not valid for patients less than 18 years of age. Additional information may be found at www.kdoqi.org. 15 Gem Technician: [id number] 16 R97.20 17 THIS ASSAY IS NOT INTENDED A CANCER SCREENING TEST The concentration of PSA in a given specimen, determined with assays from different manufacturers, can vary due to differences in assay methods and reagent specificity. Values obtained from different assay methods cannot be used interchangeably. Method: Siemens [employer] [place] Chemiluminescent immunoassay. 18 Please note reference interval change Adult male reference interval is based on a population of healthy nonobese males (BMI <30) between 19 and 39 years old. Brennan et.al. JCEM 2017,102;5069-9519. PMID: [id number]. Performed at: RN - [facility] [address] [id number] [employer]visor [employer]: Sharmaine Winkler MD, Phone: [phone] 19 E03.9 E78.5 T84.042 20 Reference Guidelines*: Desirable: ........... < 200 mg/dL Borderline High: ..... 200-239 mg/dL High: ................ >=240 mg/dL * The National Cholesterol Education Program (NCEP) 21 Reference Guidelines*: Normal: ............. < 150 mg/dL Borderline High: .... 150-199 mg/dL High: ............... 200-499 mg/dL Very High: .......... > 500 mg/dL * Source: National Cholesterol Education Program (NCEP) 22 Reference Guidelines*: Low HDL: ..... < 40 mg/dL Normal: ..... 40-60 mg/dL Desirable: ... > 60 mg/dL *The National Cholesterol Education Program(NCEP) 23 Reference Guidelines*: Optimal:........... <100 mg/dL Near Optimal....... 100-129 mg/dL Borderline High.... 130-159 mg/dL High............... 160-189 mg/dL Very High.......... >=190 mg/dL * Source: National Cholesterol Education Program (NCEP) 24 R14.0 25 Performed at: [facility] [address] [id number] Supervisor [employer]: Sharmaine Winkler MD, Phone: [phone] 26 Negative 0 - 19 Weak Positive 20 - 30 Moderate to Strong Positive >30 27 Negative 0 - 19 Weak Positive 20 - 30 Moderate to Strong Positive >30 28 Negative 0 - 3 Weak Positive 4 - 10 Positive >10 Tissue Transglutaminase (tTG) has been identified as the endomysial antigen. Studies have demonstr- ated that endomysial IgA antibodies have over 99% specificity for gluten sensitive enteropathy. 29 Negative 0 - 5 Weak Positive 6 - 9 Positive >9 Performed at: [facility] [facility] [id number] Supervisor [employer]: Sharmaine Winkler MD, Phone: [phone] 30 N40.1 31 THIS ASSAY IS NOT INTENDED A CANCER SCREENING TEST The concentration of PSA in a given specimen, determined with assays from different manufacturers, can vary due to differences in assay methods and reagent specificity. Values obtained from different assay methods cannot be used interchangeably. Method: Siemens [employer] [place] Chemiluminescent immunoassay. 32 E78.5 E55.9 33 Reference Guidelines*: Desirable: ........... < 200 mg/dL Borderline High: ..... 200-239 mg/dL High: ................ >=240 mg/dL * The National Cholesterol Education Program (NCEP) 34 Reference Guidelines*: Normal: ............. < 150 mg/dL Borderline High: .... 150-199 mg/dL High: ............... 200-499 mg/dL Very High: .......... > 500 mg/dL * Source: National Cholesterol Education Program (NCEP) 35 Reference Guidelines*: Low HDL: ..... < 40 mg/dL Normal: ..... 40-60 mg/dL Desirable: ... > 60 mg/dL *The National Cholesterol Education Program(NCEP) 36 Reference Guidelines*: Optimal:........... <100 mg/dL Near Optimal....... 100-129 mg/dL Borderline High.... 130-159 mg/dL High............... 160-189 mg/dL Very High.......... >=190 mg/dL * Source: National Cholesterol Education Program (NCEP) 37 Vitamin D deficiency has been defined by the [place] [employer] and an Endocrine Society practice guideline as a level of serum 25-OH vitamin D less than 20 ng/mL (1,2). The Endocrine Society went on to further define vitamin D insufficiency as a level between 21 and 29 ng/mL (2). 1. IOM ([place] [employer]). 2010. Dietary reference intakes for calcium and D. [place]: The National Academies Press. 2. Madelyn BAEZ, Sofi EASLEY, Collette JOSÉ, et al. Evaluation, treatment, and prevention of vitamin D deficiency: an Endocrine Society clinical practice guideline. JCEM. 2010; 96(4):1911-30. Performed at: RN - [facility] [address] [id number] Supervisor [employer]: Sharmaine Winkler MD, Phone: [phone] 38 Desirable: <100 mg/dL Near Optimal: 100-129 mg/dL Borderline High: 130-159 mg/dL High: 160-189 mg/dL Very High: >189 mg/dL 39 Reference Guidelines*: Desirable: ........... < 200 mg/dL Borderline High: ..... 200-239 mg/dL High: ................ >=240 mg/dL * The National Cholesterol Education Program (NCEP) 40 Reference Guidelines*: Normal: ............. < 150 mg/dL Borderline High: .... 150-199 mg/dL High: ............... 200-499 mg/dL Very High: .......... > 500 mg/dL * Source: National Cholesterol Education Program (NCEP) 41 Reference Guidelines*: Low HDL: ..... < 40 mg/dL Normal: ..... 40-60 mg/dL Desirable: ... > 60 mg/dL *The National Cholesterol Education Program(NCEP) 42 Reference Guidelines*: Optimal:........... <100 mg/dL Near Optimal....... 100-129 mg/dL Borderline High.... 130-159 mg/dL High............... 160-189 mg/dL Very High.......... >=190 mg/dL * Source: National Cholesterol Education Program (NCEP) 43 Vitamin D deficiency has been defined by the [place] [employer] and an Endocrine Society practice guideline as a level of serum 25-OH vitamin D less than 20 ng/mL (1,2). The Endocrine Society went on to further define vitamin D insufficiency as a level between 21 and 29 ng/mL (2). 1. IOM ([place] [employer]). 2010. Dietary reference intakes for calcium and D. [place]: The National Academies Press. 2. Madelyn BAEZ, Sofi EASLEY, Collette JOSÉ, et al. Evaluation, treatment, and prevention of vitamin D deficiency: an Endocrine Society clinical practice guideline. JCEM. 2010; 96(7):1911-30. Performed at: RN - [facility] [address] [id number] Super[employer]: Sharmaine Winkler MD, Phone: [phone] 44 Reference Guidelines*: Desirable: ........... < 200 mg/dL Borderline High: ..... 200-239 mg/dL High: ................ >=240 mg/dL * The National Cholesterol Education Program (NCEP) 45 Reference Guidelines*: Low HDL: ..... < 40 mg/dL Normal: ..... 40-60 mg/dL Desirable: ... > 60 mg/dL *The National Cholesterol Education Program(NCEP) 46 Reference Guidelines*: Optimal:........... <100 mg/dL Near Optimal....... 100-129 mg/dL Borderline High.... 130-159 mg/dL High............... 160-189 mg/dL Very High.......... >=190 mg/dL * Source: National Cholesterol Education Program ( NCEP) 47 Reference Guidelines*: Normal: ............. < 150 mg/dL Borderline High: .... 150-199 mg/dL High: ............... 200-499 mg/dL Very High: .......... > 500 mg/dL * Source: National Cholesterol Education Program (NCEP) 48 RUN DATE: 08/08/14 [facility] LIVE PAGE 1 RUN TIME: [address] [place] [id number] Specimen Inquiry ----- Name: XIN MONTERROSO : [address]: Bautista Angelo MD Acct: [id number] Unit: [id number] AGE: 69 Location: [facility] Re SEX: M Status: DEP ER ----- SPEC: [id number] DIONY: 08/06/14 [facility] [address]: Bautista Angelo MD REQ: [id number] RECD: 08/06/14 STATUS: HERNAN MODI DR: Abi Herr PA _ SOURCE: URINE SPDESC: ORDERED: Urine Culture ----- Procedure Result Verified Site ----- Urine Culture Final 08/08/14-09 ML No Growth Day 2 (<1,000 CFU/ mL) ----- END OF REPORT * ML=Testing performed at Main Lab DEPARTMENT OF PATHOLOGY, [address] [place] [address] Nasir Gamez M.D. Director [facility] # [id number] HDL Interpretation: Undesirable: High Risk: Less than 40 mg/dL Desirable: Low Risk: Greater than 60 mg/dL 50 LDL Interpretation: Low Risk Optimal Level: LDL Less than 100 mg/dL Near or Above Optimal: LDL 100-129 mg/dL Borderline High Risk: LDL 130-159 mg/dL High Risk : LDL 160-189 mg/dL Very High Risk: LDL Greater than 189 mg/dL 51 HDL Interpretation: Undesirable: High Risk: Less than 40 MG/DL Desirable: Low Risk: Greater than 60 MG/DL 52 LDL Interpretation: Low Risk Optimal Level: LDL Less than 100 MG/DL Near or Above Optimal: LDL 100-129 MG/DL Borderline High Risk: LDL 130-159 MG/DL High Risk : LDL 160-189 MG/DL Very High Risk: LDL Greater than 189 MG/DL 53 -- REFERENCE VALUE -- 25-HYDROXY D TOTAL (D2+D3) Optimum levels in the normal population are 25-80 Test Performed by: [address] [address] [employer] Technician: Tono Condon III, M.D. 54 Incubated at 37 C for 30 min, no change 55 HDL Interpretation: Undesirable: High Risk: Less than 40 MG/DL Desirable: Low Risk: Greater than 60 MG/DL 56 LDL Interpretation: Low Risk Optimal Level: LDL Less than 100 MG/DL Near or Above Optimal: LDL 100-129 MG/DL Borderline High Risk: LDL 130-159 MG/DL High Risk : LDL 160-189 MG/DL Very High Risk: LDL Greater than 189 MG/DL 57 Desirable: Less than 200 MG/DL Borderline-High Risk: 200-239 MG/DL High- Risk: 240 MG/DL and over 58 HDL Interpretation: Undesirable: High Risk: Less than 40 MG/DL Desirable: Low Risk: Greater than 60 MG/DL 59 A metabolite of Naproxen, O-desmethylnaproxen, has been shown to interfere with the [place] method for measuring total bilirubin. Samples from patients who have taken Naproxen have shown spurious elevation in total bilirubin levels. 60 CHOLESTEROL INTERPRETATION: Desirable: Less than 200 MG/DL Borderline-High Risk: 200-239 MG/DL High-Risk: 240 MG/DL and over 61 HDL INTERPRETATION: Undesirable: High Risk: Less than 40 MG/DL Desirable: Low Risk: Greater than 60 MG/DL 62 LDL INTERPRETATION: Low Risk Optimal Level: LDL Less than 100 MG/DL Near or Above Optimal: LDL 100-129 MG/DL Borderline High Risk: LDL 130-159 MG/DL High Risk : LDL 160-189 MG/DL Very High Risk: LDL Greater than 189 MG/DL 63 A metabolite of Naproxen, O-desmethylnaproxen, has been shown to interfere with the Jendrassik-Kim method for measuring total bilirubin. Samples from patients who have taken Naproxen have shown spurious elevation in total bilirubin levels. 64 Please note updated reference range, effective 04/22/10 65 Please note: New reference range, effective 09/22/11 NORMAL REFERENCE RANGE: GREATER THAN 4.1 NG/ML 66 A metabolite of Naproxen, O-desmethylnaproxen, has been shown to interfere with the Jendrassik-Kim method for measuring total bilirubin. Samples from patients who have taken Naproxen have shown spurious elevation in total bilirubin levels. 67 Please note updated reference range, effective 04/22/10 68 CHOLESTEROL INTERPRETATION: Desirable: Less than 200 MG/DL Borderline-High Risk: 200-239 MG/DL High-Risk: 240 MG/DL and over 69 HDL INTERPRETATION: Undesirable: High Risk: Less than 40 MG/DL Desirable: Low Risk: Greater than 60 MG/DL 70 LDL INTERPRETATION: Low Risk Optimal Level: LDL Less than 100 MG/DL Near or Above Optimal: LDL 100-129 MG/DL Borderline High Risk: LDL 130-159 MG/DL High Risk : LDL 160-189 MG/DL Very High Risk: LDL Greater than 189 MG/DL 71 Anion gap measurement may be of limited value in the presence of any alkalosis, especially in a combined acid base disorder. . 72 Because ethnic data is not always readily available, this report includes an eGFR for both -Americans and non- Americans. The National Kidney Disease Education Program (NKDEP) does not endorse the use of the MDRD equation for patients that are not between the ages of 18 and 70, are , have extremes of body size, muscle mass, or nutritional status, or are non- or non-. According to the National Kidney Foundation, irrespective of diagnosis, the stage of the disease is based on the level of kidney function: Stage Description GFR(mL/min/1.73 m(2)) 1 Kidney damage with normal or decreased GFR 90 2 Kidney damage with mild decrease in GFR 60- 89 3 Moderate decrease in GFR 30-59 4 Severe decrease in GFR 15-29 5 Kidney failure <15 (or dialysis) 73 A metabolite of Naproxen, O-desmethylnaproxen, has been shown to interfere with the Jendrassik-[place] method for measuring total bilirubin. Samples from patients who have taken Naproxen have shown spurious elevation in total bilirubin levels. 74 Please note updated reference range, effective 04/22/10 75 CHOLESTEROL INTERPRETATION: Desirable: Less than 200 MG/DL Borderline-High Risk: 200-239 MG/DL High-Risk: 240 MG/DL and over 76 HDL INTERPRETATION: Undesirable: High Risk: Less than 40 MG/DL Desirable: Low Risk: Greater than 60 MG/DL 77 LDL INTERPRETATION: Low Risk Optimal Level: LDL Less than 100 MG/DL Near or Above Optimal: LDL 100-129 MG/DL Borderline High Risk: LDL 130-159 MG/DL High Risk : LDL 160-189 MG/DL Very High Risk: LDL Greater than 189 MG/DL Procedures Date Code Description Status 09/20/2018 79189 Measurement Post Voiding Residual Urine By Completed Ultrasound,Non-Imaging 09/20/2018 34043 complex uroflowmetry electronic Completed 08/21/2018 18190 Measurement Post Voiding Residual Urine By Completed Ultrasound,Non-Imaging 04/18/2017 38173 EGD With Biopsy Completed 04/12/2017 66653 Breath Hydrogen Test Completed 02/09/2017 62788 Breath Hydrogen Test Completed 03/14/2016 45972 EKG-Tracing And Report Completed 05/14/2014 [id number] Colonoscopy Completed 05/15/2012 41203 Remove Impacted Cerumen Completed 09/21/2010 64440 Remove Impacted Cerumen Completed 11/19/2008 93670 EKG-Tracing And Report Completed 12/28/2007 [id number] Colonoscopy Completed Encounters Type Date Location Provider Dx Diagnosis Office Visit 10/17/2018 [facility] [place], S90.934A Unsp superficial 11:00a Office YVES Yi injury of right lesser toe(s), init encntr L02.32 Furuncle of buttock Office Visit 09/20/2018 3:15p Urology Allyson Evangelista, N40.1 Benign prostatic M.D. hyperplasia with lower urinary tract symp Office Visit 09/03/2018 10:00a Jett Fuchs, K58.1 Irritable bowel MD syndrome with constipation R14.0 Abdominal distension (gaseous) Office Visit 08/21/2018 11:15a Urology Allyson Evangelista, N40.1 Benign prostatic M.D. hyperplasia with lower urinary tract symp Z12.5 Encounter for screening for malignant neoplasm of prostate Office Visit 08/03/2018 10:30a [facility] [place], F41.9 Anxiety disorder, Office Abi, [facility] unspecified R14.0 Abdominal distension (gaseous) L82.1 Other seborrheic keratosis Office Visit 07/03/2018 1:30p [facility] [place], F41.9 Anxiety disorder, Office [facility], [facility] unspecified S50.811A Abrasion of right forearm, initial encounter R14.0 Abdominal distension (gaseous) E78.5 Hyperlipidemia, unspecified Office Visit 05/23/2018 [facility] [place], B35.9 Dermatophytosis, 10:00a Office Abi, [facility] unspecified I71.4 Abdominal aortic aneurysm, without rupture Office Visit 04/11/2018 8:00a HUMBERTO Graham MD R63.4 Abnormal weight loss R14.0 Abdominal distension (gaseous) Office Visit 03/12/2018 9:30a [facility] [place], E78.5 Hyperlipidemia, Office Abi, [facility] unspecified I71.4 Abdominal aortic aneurysm, without rupture Office Visit 02/07/2018 9:00a HUMBERTO Graham MD R63.4 Abnormal weight loss R14.0 Abdominal distension (gaseous) Office Visit 01/17/2018 9:15a [facility] [place], R14.0 Abdominal Office Abi, [facility] distension (gaseous) D48.5 Neoplasm of uncertain behavior of skin Office Visit 12/12/2017 11:15a [facility] [place], R14.0 Abdominal Office Abi, [facility] distension (gaseous) H69.92 Unspecified Eustachian tube disorder, left ear Office Visit 11/10/2017 9:30a [facility] [place], R14.0 Abdominal Office Abi, [facility] distension (gaseous) E03.9 Hypothyroidism, unspecified E78.5 Hyperlipidemia, unspecified Office Visit 11/08/2017 9:45a HUMBERTO Graham MD R14.0 Abdominal distension (gaseous) Office Visit 09/12/2017 2:30p [facility] [place], S91.105A Unsp opn wnd left Office Chante Robledo lesser toe(s) w/o damage to nail, init Office Visit 07/19/2017 10:00a HUMBERTO Graham MD R14.0 Abdominal distension (gaseous) K29.50 Unspecified chronic gastritis without bleeding Office Visit 07/14/2017 9:15a [facility] [place], L30.9 Dermatitis, Office Abi, [facility] unspecified W54.0xxS Bitten by dog, sequela W54.0xxS Bitten by dog, sequela Office Visit 07/06/2017 10:15a [facility], B02.9 Zoster without Office M.D. complications W54.0xxS Bitten by dog, sequela W54.0xxS Bitten by dog, sequela Office Visit 07/03/2017 2:30p [facility] [place], W54.0xxA Bitten by dog, Office Ab[facility], [facility] initial encounter W54.0xxA Bitten by dog, initial encounter S50.871A Other superficial bite of right forearm, initial encounter S50.871A Other superficial bite of right forearm, initial encounter Office Visit 06/23/2017 9:45a HUMBERTO Graham MD R14.0 Abdominal distension (gaseous) K29.50 Unspecified chronic gastritis without bleeding Office Visit 04/12/2017 10:30a HUMBERTO Graham MD R14.0 Abdominal distension (gaseous) R14.3 Flatulence Office Visit 03/14/2017 9:30a [facility] [place], J45.991 Cough variant Office Abi, [facility] asthma K13.79 Other lesions of oral mucosa E03.9 Hypothyroidism, unspecified E78.5 Hyperlipidemia, unspecified Office Visit 01/11/2017 11:15a HUMBERTO Graham MD R14.0 Abdominal distension (gaseous) R14.3 Flatulence Office Visit 12/26/2016 2:15p [facility] [place], S61.031A Pnctr w/o fb Office Abi, [facility] of right thumb w/o damage to nail, init W54.0xxA Bitten by dog, initial encounter R14.3 Flatulence Office Visit 12/06/2016 1:45p [facility] Abi Herr, R14.3 Flatulence Office [facility] K58.1 Irritable bowel syndrome with constipation Office Visit 11/14/2016 9:30a [facility] [place], R05 Cough Office Abi, [facility] Office Visit 11/03/2016 1:00p [facility] [place], J04.0 Acute laryngitis Office Abi, [facility] Office Visit 08/19/2016 9:15a [facility] [place], H92.02 Otalgia, left ear Office Abi, [facility] Office Visit 07/26/2016 9:15a [facility] [place], R14.2 Eructation Office Abi, [facility] Office Visit 07/14/2016 9:45a [facility] [place], E78.5 Hyperlipidemia, Office Abi, [facility] unspecified E55.9 Vitamin D deficiency, unspecified Office Visit 03/23/2016 9:15a [facility] [place], J45.991 Cough variant Office Abi, [facility] asthma J30.9 Allergic rhinitis, unspecified Office Visit 03/14/2016 9:30a [facility] [place], J45.991 Cough variant Office Abi, [facility] asthma E03.9 Hypothyroidism, unspecified I49.9 Cardiac arrhythmia, unspecified Office Visit 11/13/2015 9:30a [facility] [place], K59.00 Constipation, Office Abi, [facility] unspecified E03.9 Hypothyroidism, unspecified E78.2 Mixed hyperlipidemia Office Visit 07/13/2015 9:30a [facility] [place], E55.9 Vitamin D Office Abi [facility] deficiency, unspecified Z23 Encounter for immunization E03.8 Other specified hypothyroidism E78.1 Pure hyperglyceridemia Office Visit 06/22/2015 1:45p [facility] [place], R05 Cough Office Abi [facility] Office Visit 03/12/2015 10:00a [facility] [place], 787.3 Flatulence Office Abi [facility] Eructation & Gas Pain 244.8 Hypothyroidism Other Spec 493.82 cough variant asthma Plan of Treatment Future Appointment(s):09/19/2019 11:00 am - Allyson Evangelista M.D. at [facility]/2018 10:00 am - Jett Gutierrez MD at [facility]12/04/2018 11:15 am - Abi [facility] at [id number]/17/2018 - Tala Rose, PAS90.934A Unspecified superficial injury of right lesser toe(s), initiComments: Superficial injury to third toe on right foot. No evidence of infection.Keep clean and covered sinceslight bleeding persists.Can soak foot in warm water if sklktiA33.32 Furuncle of buttockComments:Small ingrown hair to left buttock. No infection present.Reassured pt. continue to place triple antibiotic ointment to area.Follow up:Follow-up as needed
[2018-10-25 07:52] VITALS: BP 127/78
--- NOTE | 2018-10-25 08:26 | UC ---
UC General HPI - HPI Summary HPI Summary: Patient states he had a BM this AM and when he wiped there was bright red blood on the toilet paper. THis occurred just once. Happened many years ago. He has a hx of constipation for which he takes miralax for. Had a colonoscopy 4.5 years ago that was unremarkable. No lightheadedness or dizziness. No CP or SOB. No change in his bowels. No weight loss. No abdominal pain. PMHx: reviewed Meds: reviewed - has not taken an aspirin in a while. - History of Current Complaint Chief Complaint: Elizabeth Stated Complaint: PERSONAL Time Seen by Provider: 10/25/18 08:13 Pain Intensity: 3 - Allergy/Home Medications Allergies/Adverse Reactions: Allergies Allergy/AdvReac Type Severity Reaction Status Date / Time gluten Allergy Unknown Verified 10/25/18 07:52 Reaction Details lactose Allergy Unknown Verified 10/25/18 07:52 Reaction Details codeine AdvReac Constipatio Verified 10/25/18 07:52 n PMH/Surg Hx/FS Hx/Imm Hx Endocrine History: Hypothyroidism - Surgical History Surgical History: Yes Surgery Procedure, Year, and Place: double hernia (inguinal). HEMORROID BANDING. pilonidal cyst. appy - Family History Known Family History: Positive: Hypertension - Social History Alcohol Use: Rare Alcohol Amount: once Substance Use Type: None Smoking Status (MU): Never Smoked Tobacco - Immunization History Most Recent Influenza Vaccination: May 2017 Most Recent Tetanus Shot: 12/20/16 Review of Systems All Other Systems Reviewed And Are Negative: Yes Gastrointestinal: Positive: Negative Is Patient Immunocompromised?: No Physical Exam Appearance: Well-Appearing Vital Signs: Initial Vital Signs Temp 98 F 10/25/18 07:46 Pulse 85 10/25/18 07:46 Resp 18 10/25/18 07:46 BP 127/78 10/25/18 07:46 Pulse Ox 96 10/25/18 07:46 Vital Signs Reviewed: Yes Neck exam: Normal Respiratory: Positive: Chest non-tender, Lungs clear Cardiovascular: Positive: RRR, No Murmur Abdomen Description: Positive: Nontender, Soft, Other: - Rectal exam: No hemorrhoid or fissure no gross blood. No stool in rectal vault. No masses palpated. Course/Dx - Course Course Of Treatment: This is a 73 yr old with BRBPR on toilet paper. Assessment. Likely internal hemorroid - hemoccult positive but no stool really noted just likely dried blood. Plan. Continue miralax and high fiber diet. If you feel lightheaded, dizzy or short of breath with bloody stools return to ER. If you continue with blood on toilet paper but otherwise feel well, return to PCP for further follow up. Continue to hold aspirin until follow up with Primary care physician - Diagnoses Provider Diagnosis: Internal hemorrhoid Discharge - Sign-Out/Discharge Documenting (check all that apply): Patient Departure All imaging exams completed and their final reports reviewed: No Studies - Discharge Plan Condition: Good Disposition: HOME Referrals: Abi Herr PA [Primary Care Provider] - Additional Instructions: Continue miralax and high fiber diet If you feel lightheaded, dizzy or short of breath with bloody stools go to the ER If you continue with blood on toilet paper but otherwise feel well, return to PCP for further follow up. Continue to hold aspirin until follow up with Primary care physician - Billing Disposition and Condition Condition: GOOD Disposition: Home
== END 2018-10-25 08:48 | disposition home or self-care (01) ==
LOC: UCCORT 07:35
DX: K64.8 Other hemorrhoids (principal); Z88.5 Allergy status to narcotic agent
CPT/HCPCS: 82272; 99212; G0463

== ENCOUNTER 2019-04-04 11:26 | Emergency (ER) | payer MEDICARE, BC ==
--- OUTSIDE RECORDS SUMMARY | 2019-04-04 11:44 | XMS REPORT | Continuity of Care Document ---
:1945 External Reference #:[id number] Author Name Jett Gutierrez MD Address [address] [place] [address] Care Team Providers Name Role Phone Abi Herr RPAC Care Team Information Sod Farmer Unavailable Abi Herr RPAC Primary Care Physician Unavailable Payers Date Identification Numbers Payment Provider Subscriber Policy Number: [id number] Medicare Xin Monterroso PayID: [id number] [address] [place] [address] Effective: 2007 Policy Number: [id number] [facility] Xin Monterroso Group Name: [facility] [address] [address] PayID: [id number] [place] [address] Problems Active Problems Provider Date Internal hemorrhoids Abi Herr RPAC Onset: 08/04/2014 Irritable bowel syndrome characterized by Abi Herr RPAC Onset: 07/2014 constipation Cataract Abi Herr RPAC Onset: 06/24/2013 Glaucoma Abi Herr RPAC Onset: 06/24/2013 Developmental delay Abi Herr RPAFaiza Onset: 07/12/2011 Diverticular disease of colon Abi Herr RPAC Onset: 07/12/2011 [facility]ough variant [facility]: 07/12/2011 [facility]set: 07/12/2011 Note: Hiatal hernia [facility]set: 07/12/2011 Benign prostatic hypertrophy with outflow Abi Herr [facility] Onset: obstruction Note: mild increase of PSA Flatulence, eructation and gas pain Jaciel Graham MD Onset: 01/11/2017 Atrophic gastritis Jaciel Graham MD Onset: 06/23/2017 [facility]ustachian [facility]set: 12/12/2017 Neoplasm of uncertain behavior of skin [facility] Onset: 2017 Weight decreased Jaciel Graham MD Onset: 02/07/2018 Hyper[facility] Onset: 03/12/2018 Abdominal aortic aneurysm without rupture [facility] Onset: 08/2018 Screening for malignant neoplasm of Allyson Evangelista M.D. Onset: 08/21/2018 prostate Inactive Problems Pure [facility]set: 07/12/2011 Inactive: 03/14/2018 Mixed hyperlipidemia Jaciel Graham MD Onset: 01/11/2017 Inactive: 03/14/2018 Resolved Problems Other superficial bite of right forearm, Abi Herr [facility] Onset: 07/03 initial encounter Resolved: 11/13/2017 Open wound of toe without complication Venkat Cameron M.D. Onset: 2016 Resolved: 11/13/2017 Family History Date Family Member(s) Observation Comments General Non Contributory Father Heart Disease [...] Use Denies Drug Use Smoking Status Reviewed: 03/05/19 Patient has never smoked Allergies, Adverse Reactions, Alerts Active Allergies Reaction Severity Comments Date Codeine constipation 03/11/2014 Tamsulosin diarrhea 03/14/2016 Augmentin diarrhea 12/26/2016 Amoxicillin unknown 08/30/2017 Penicillin 01/11/2017 Medications Active Medications SIG Qnty Indications Ordering Date Provider Montelukast Sodium 1 by mouth every 90tabs Esa Costello, 09/24/2018 10mg day M.D. Tablets Tamsulosin HCL 1 by mouth every 30caps Tonja, 08/21/2018 0.4mg day at bedtime Chante Valadez Capsules Simethicone 4 times daily Gerardo, 2018 125mg Gabby Nuñez [employer] Capsules Fenofibrate 1 by mouth every 90tabs Esa Costello, 07/05/2018 160mg day M.D. Tablets Nystatin thin layer to 30gm B35.9 Esa Costello, 05/23/2018 501405Gpig/GM affected skin on M.D. Cream abdomen four times a day Zantac 150 Maximum 1 by mouth every 90tabs K29.50 Brenda, 06/23/2017 Strength day every morning MD Jett 150mg Tablets as needed per pt Levothyroxine Sodium 1 by mouth every 90tabs Esa Costello, day M.D. 75mcg Tablets Aspirin Adult Low 1 by mouth every Unknown Dose other day 81mg Tablets DR Multivitamins 1 by mouth every Unknown Capsules day Vitamin B-12 1 by mouth every Unknown 500mg day Tablets Polyethylene Glycol 2 or 3 tablespoons Negrito Quiñones 3350 by mouth every day E., [place] 3350 Granules mixed in juice or water Latanoprost 1 drop each eye at Unknown 0.005% night Solution Vitamin D3 1 by mouth every Unknown 1000Unit day Tablets Probiotic 1 by mouth every Unknown Capsules day History Medications Buspirone HCL 1 tab by mouth 90tabs F41.9 Esa Costello, 07/03/2018 - 5mg tid for anxiety M.D. 09/03/2018 Tablets Rapaflo 1 cap by mouth Unknown 08/30/2017 - 8mg Capsules every day Unknown Mometasone Furoate thin layer to 45gm L30.9 Esa Costello, 07/14/2017 - 0.1% itchy rash M.D. 12/12/2017 Cream three times a day Famciclovir take 1 tablet 21tabs B02.9 Diana Mc, 07/06/2017 - 500mg by mouth 3 M.D. Unknown Tablets times a day for 7 days Doxycycline 1 cap by mouth 20caps W54.0xxS Diana Mc, 07/06/2017 - Monohydrate twice a day for M.D. 07/17/2017 100mg 10 days Capsules Cephalexin 1 tab (or cap) 30tabs J04.0 Esa Costello, 11/03/2016 - 500mg by mouth three M.D. 11/14/2016 Tablets times a day Benzonatate 1 cap by mouth 30caps J04.0 Esa Costello, 11/03/2016 - 200mg three times a M.D. 12/06/2016 Capsules day as needed cough Desloratadine 1 tab by mouth 30tabs J30.9 Esa Costello, 03/23/2016 - 5mg every day as M.D. Unknown Tablets needed congestion/coug h Tamsulosin HCL 1 cap by mouth Seferino Diaz 12/18/2015 - 0.4mg every day 03/14/2016 Capsules Vitamin D-400 3 tabs by mouth Negrito Terrazas, 06/22/2015 - 400Unit every day DO 01/11/2017 Tablets Azithromycin 2 tabs by mouth 11tabs R05 Negrito Terrazas, 06/22/2015 - 250mg today then one DO 07/13/2015 Tablets tab by mouth daily Align 1 cap by mouth Unknown - Capsules every day 01/17/2018 Fenofibrate 1 by mouth 90tabs Esa Costello, - 160mg every day M.D. 12/12/2017 Tablets Montelukast Sodium 1 by mouth 90tabs Esa Costello, - 10mg every day M.D. 09/03/2018 Tablets Krill Oil occ. Unknown - 1000mg 12/12/2017 Capsules Sbwzzmwk-Hetuoilsz-RV 4-5 drops to Unknown - (b) ear canals Unknown [id number] four times a Suspension day for 1 week Ranitidine 150 1 by mouth Jaciel Graham MD - Maximum Strength every day Unknown 150mg Tablets Linzess 1 by mouth Unknown - 72mcg Capsules every day Unknown Immunizations CPT Code Status Date Vaccine Reaction Lot # 24848 Given 06/16/2017 Influenza Virus Vaccine received flu vaccine Quadrivalent Iiv4 [place] [place] [id number] Given 12/20/2016 Tdap injection received at [facility] Q2038 Given 06/02/2016 Influenza Vaccine (Fluzone) Age 3 And Older 92626 Given 07/13/2015 Pneumococcal Conjugate [id number] Vaccine 13 Valent For Intramuscular Use Q2038 Given 05/27/2015 Influenza Vaccine (Fluzone) Age 3 And Older 93063 Given 05/30/2013 Influenza Virus Whole 67739 Given 07/27/2012 Zoster Vaccine Live Injection 44343 Given 06/13/2012 Pneumovax Injection 41817 Given 06/13/2012 flu vaccination 09883 Given 09/15/2009 H1N1 Immuniation Adminstration 25087 Given 06/24/2009 Pneumovax Injection Vital Signs Date Vital Result Comment 03/05/2019 9:47am BP Systolic Sitting Left Arm 110 mmHg BP Diastolic Sitting Left Arm 82 mmHg Heart Rate 84 /min Respiratory Rate 18 /min Height 71 inches 5'11" Weight 179.00 lb BMI (Body Mass Index) 25.0 kg/m2 BSA (Body Surface Area) 2.01 m2 [place] body weight in kilograms 78 kg O2 % BldC Oximetry 97 % Ra 11/26/2018 11:11am BP Systolic Sitting Right Arm 120 mmHg BP Diastolic Sitting Right Arm 84 mmHg Body Temperature 97.7 F Heart Rate 74 /min Respiratory Rate 18 /min Height 71 inches 5'11" Weight 184.00 lb BMI (Body Mass Index) 25.7 kg/m2 BSA (Body Surface Area) 2.04 m2 [place] body weight in kilograms 78 kg O2 % BldC Oximetry 96 % Ra 10/17/2018 10:30am BP Systolic Sitting Right Arm 157 mmHg BP Diastolic Sitting Right Arm 82 mmHg Body Temperature 97.4 F Heart Rate 80 /min Height 71 inches 5'11" Weight 184.00 lb BMI (Body Mass Index) 25.7 kg/m2 BSA (Body Surface Area) 2.04 m2 [place] body weight in kilograms 78 kg O2 [...] kg/m2 BSA (Body Surface Area) 2.03 m2 [place] body weight in kilograms 78 kg O2 % BldC Oximetry 78 % 08/21/2018 11:40am BP Systolic 130 mmHg BP Diastolic 76 mmHg Body Temperature 97.7 F Heart Rate 71 /min Respiratory Rate 18 /min Height 71 inches 5'11" Weight 184.00 lb BMI (Body Mass Index) 25.7 kg/m2 BSA (Body Surface Area) 2.04 m2 [place] body weight in kilograms 78 kg O2 % BldC Oximetry 93 % Pain Level 0 08/03/2018 10:55am BP Systolic 111 mmHg BP Diastolic 77 mmHg Body Temperature 98.0 F Heart Rate 69 /min Respiratory Rate 18 /min Height 71 inches 5'11" Weight 183.00 lb BMI (Body Mass Index) 25.5 kg/m2 BSA (Body Surface Area) 2.03 m2 [place] body weight in kilograms 78 kg O2 % BldC Oximetry 96 % 07/03/2018 1:10pm BP Systolic 128 mmHg BP Diastolic 83 mmHg Body Temperature 97.3 F Heart Rate 83 /min Respiratory Rate 18 /min Height 71 inches 5'11" Weight 185.12 lb BMI (Body Mass Index) 25.8 kg/m2 BSA (Body Surface Area) 2.04 m2 [place] body weight in kilograms 78 kg O2 % BldC Oximetry 96 % 05/23/2018 10:27am BP Systolic Sitting Right Arm 118 mmHg BP Diastolic Sitting Right Arm 64 mmHg Body Temperature 98.3 F Heart Rate 81 /min Respiratory Rate 18 /min Height 71 inches 5'11" Weight 185.00 lb BMI (Body Mass Index) 25.8 kg/m2 BSA (Body Surface Area) 2.04 m2 [place] body weight in kilograms 78 kg O2 % BldC Oximetry 93 % ra 04/11/2018 7:45am BP Systolic Sitting Left Arm 130 mmHg BP Diastolic Sitting Left Arm 80 mmHg Heart Rate 84 /min Respiratory Rate 16 /min Height 71 inches 5'11" Weight 188.00 lb BMI (Body Mass Index) 26.2 kg/m2 BSA (Body Surface Area) 2.05 m2 [place] body weight in kilograms 78 kg 03/12/2018 9:12am BP Systolic Sitting Right Arm 118 mmHg BP Diastolic Sitting Right Arm 68 mmHg Body Temperature 93.8 F Heart Rate 70 /min reg Respiratory Rate 24 /min Height 71 inches 5'11" Weight 186.00 lb BMI (Body Mass Index) 25.9 kg/m2 BSA (Body Surface Area) 2.04 m2 [place] body weight in kilograms 78 kg O2 % BldC Oximetry 94 % 02/07/2018 9:09am BP Systolic Sitting Left Arm 124 mmHg BP Diastolic Sitting Left Arm 84 mmHg Heart Rate 66 /min Respiratory Rate 18 /min Height 71 inches 5'11" Weight 182.00 lb BMI (Body Mass Index) 25.4 kg/m2 BSA (Body Surface Area) 2.03 m2 [place] body weight in kilograms 78 kg 01/17/2018 8:56am BP Systolic Sitting Right Arm 118 mmHg BP Diastolic Sitting Right Arm 82 mmHg Heart Rate 78 /min Respiratory Rate 18 /min Height 71 inches 5'11" Weight 183.00 lb BMI (Body Mass Index) 25.5 kg/m2 BSA (Body Surface Area) 2.03 m2 [place] body weight in kilograms 78 kg O2 % BldC Oximetry 96 % 12/12/2017 11:14am BP Systolic Sitting Right Arm 112 mmHg BP Diastolic Sitting Right Arm 82 mmHg Heart Rate 72 /min Height 71 inches 5'11" Weight 184.00 lb BMI (Body Mass Index) 25.7 kg/m2 BSA (Body Surface Area) 2.04 m2 [place] body weight in kilograms 78 kg O2 % BldC Oximetry 95 % 11/10/2017 9:21am BP Systolic Sitting Left Arm 118 mmHg BP Diastolic Sitting Left Arm 80 mmHg Heart Rate 83 /min Height 71 inches 5'11" Weight 187.00 lb BMI (Body Mass Index) 26.1 kg/m2 BSA (Body Surface Area) 2.05 m2 [place] body weight in kilograms 78 kg O2 % BldC Oximetry 98 % 11/08/2017 9:59am BP Systolic Sitting Left Arm 134 mmHg BP Diastolic Sitting Left Arm 84 mmHg Heart Rate 80 /min Respiratory Rate 18 /min Height 71 inches 5'11" Weight 188.00 lb BMI (Body Mass Index) 26.2 kg/m2 BSA (Body Surface Area) 2.05 m2 [place] body weight in kilograms 78 kg 09/12/2017 1:54pm BP Systolic 130 mmHg BP Diastolic 96 mmHg Heart Rate 76 /min Respiratory Rate 14 /min Height 71 inches 5'11" Weight 188.12 lb BMI (Body Mass Index) 26.2 kg/m2 BSA (Body Surface Area) 2.05 m2 [place] body weight in kilograms 78 kg O2 [...] kg/m2 BSA (Body Surface Area) 2.08 m2 [place] body weight in kilograms 81 kg 07/14/2017 9:04am BP Systolic Sitting Right Arm 118 mmHg BP Diastolic Sitting Right Arm 62 mmHg Heart Rate 57 /min Respiratory Rate 18 /min Height 72 inches 6'0" Weight 189.00 lb BMI (Body Mass Index) 25.6 kg/m2 BSA (Body Surface Area) 2.08 m2 [place] body weight in kilograms 81 kg O2 % BldC Oximetry 92 % ra 07/06/2017 10:01am BP Systolic Sitting Left Arm [...] kg/m2 BSA (Body Surface Area) 2.08 m2 [place] body weight in kilograms 81 kg O2 % BldC Oximetry 97 % ra 06/23/2017 9:39am BP Systolic Sitting Left Arm 146 mmHg BP Diastolic Sitting Left Arm 84 mmHg Heart Rate 94 /min Respiratory Rate 16 /min Height 72 inches 6'0" Weight 188.00 lb BMI (Body Mass Index) 25.5 kg/m2 BSA (Body Surface Area) 2.08 m2 [place] body weight in kilograms 81 kg 04/12/2017 10:21am BP Systolic Sitting Left Arm 150 mmHg BP Diastolic Sitting Left Arm 98 mmHg Heart Rate 84 /min Respiratory Rate 16 /min Height 72 inches 6'0" Weight 186.00 lb BMI (Body Mass Index) 25.2 kg/m2 BSA (Body Surface Area) 2.07 m2 [place] body weight in kilograms 81 kg 03/14/2017 9:13am BP Systolic Sitting Right Arm 124 mmHg BP Diastolic Sitting Right Arm 72 mmHg Height 72 inches 6'0" Weight 185.00 lb BMI (Body Mass Index) 25.1 kg/m2 BSA (Body Surface Area) 2.06 m2 [place] body weight in kilograms 81 kg 01/11/2017 [...] kg/m2 BSA (Body Surface Area) 2.11 m2 [place] body weight in kilograms 81 kg 11/13/2015 [...] Date Facility Test Result H/L Range Note CBC 11/26/2018 [facility] White Blood 5.2 K/uL N 3.4-10.5 1 W/Automated [address] [place] [address] [phone] Red Blood Count 3.98 M/uL Low 4.20-5.80 Hemoglobin 14.7 gm/dL N 12.8-17.0 Hematocrit 43.2 % N 38.0-48.0 Mean Cell Volume 108.5 fl High 80.0-96.0 Mean Corpuscular HGB 36.9 pg High 27.0-33.0 Mean Corpuscular HGB Conc 34.0 g/dL N 31.7-36.0 Platelet Count 178 K/uL N 155-360 Red Cell Distri Width SD 50.8 fl N 36-51 Red Cell Distri Width %CV 12.7 % N 11.6-15.8 Mean Platelet Volume 10.8 fL High 6.6-10.6 Neut% 53.7 % N 33.0-73.0 Lymph % 36.3 % N 20.0-42.0 [place] % 8.4 % N 0.0-10.0 Eo% 1.2 % N 0.0-6.6 Bas% 0.4 % N 0.0-1.1 Neut# 2.80 K/uL N 1.8-7.0 Lymph # 1.89 K/uL N 1.0-4.0 [place] # 0.44 K/uL N 0.0-0.8 Eos # 0.06 K/uL N 0.0-0.5 Baso # 0.02 K/uL N 0.0-0.1 Comprehensive Metabolic 11/26/2018 [facility] Glucose 80 mg/dL N 74-106 Panel [address] [place] [address] [phone] BUN 24 mg/dL High 7-18 Creatinine 1.3 mg/dL N 0.6-1.3 Glom Filtration Rate, Estimate 57 mL/min >60 If >60 mL/min >60 2 BUN/Creat 18.4 ratio Sodium 141 mmol/L N 136-145 Potassium 3.9 mmol/L N 3.5-5.1 Chloride 107 mmol/L N 98-107 Carbon Dioxide 29 mmol/L N 21-32 Anion Gap 5 mEq/L Low 8-16 Calcium 8.6 mg/dL N 8.5-10.1 Total Protein 7.4 g/dL N 6.4-8.2 Albumin 3.7 g/dL N 3.4-5.0 Globulin 3.7 g/dL N 1.9-4.3 Alb/Glob 1.0 ratio Bilirubin,Total 0.2 mg/dL N 0.2-1.0 Sgot/Ast 22 U/L N 15-37 SGPT/Alt 24 U/L N 12-78 Alkaline Phosphatase 80 U/L N 45-117 LDL Cholesterol Profile 11/26/2018 [facility] Cholesterol 170 mg/dL <200 3 [address] [place] [address] [phone] Triglycerides 125 mg/dL <150 4 HDL Cholesterol 37 mg/dL Low >40 5 LDL-Cholesterol 108 mg/dL < 100 6 Laboratory test 11/26/2018 [facility] Thyroid Stim 1.27 uIU/mL N 0.30-4.20 finding [address] [facility] [place] [address] [phone] Free T4 1.01 ng/dL N 0.76-1.46 Ua RFX Micro & Culture 08/21/2018 [facility] Urine Color YELLOW Yellow 7 II [address] [place] [address] [phone] Urine Clarity CLEAR Clear Urine Glucose - Dipstick NEGATIVE mg/dL Negative Urine Bilirubin - Dipstick NEGATIVE Negative Urine Ketone NEGATIVE mg/dL Negative Urine Specific [place] 1.025 N 1.010-1.030 Urine Blood NEGATIVE Negative Urine PH 6.0 Low 6.5-7.5 Urine Protein - Dipstick NEGATIVE mg/dL Negative Urine Urobilinogen - Dipstick 0.2 E.U./dL N 0.2-1.0 Urine Nitrite - Dipstick NEGATIVE Negative Urine Leuk Esterase NEGATIVE Negative Source: URINE, CLEAN CAT <SEE NOTE> 8 Urine Dipstick 08/21/2018 [facility] Ua Color Yellow Yellow Ua Clarity Clear Clear Ua Leuko Negative Negative Ua Nitrite Negative Negative Ua Urobilinogen 0.2 0.2 - 1.0 E.U./dL Ua Protein Negative Negative Ua PH 5.0 Low 6.5-7.5 Ua Blood 10 High Negative Ua Specific [place] 1.030 1.010-1.030 Ua Ketones Negative Negative Ua Bilirubin Negative Negative Ua Glucose Negative Negative LDL Cholesterol 03/14/2018 [facility] Cholesterol 152 mg/dL <200 9, 10 Profile [address] [place], [place] [id number] [phone] Triglycerides 160 mg/dL High <150 11 HDL Cholesterol 36 mg/dL Low >40 12 LDL-Cholesterol 84 mg/dL < 100 13 Laboratory test 11/10/2017 [facility] Thyroid Stim 1.07 N 0.30-4.20 14 finding [address] [facility] Hormone uIU/mL [place], [place] [id number] [phone] LDL Cholesterol 11/10/2017 [facility] Cholesterol 163 mg/dL <200 15 Profile [address] [place], [place] [id number] [phone] Triglycerides 99 mg/dL <150 16 HDL Cholesterol 23 mg/dL Low >40 17 LDL-Cholesterol 120 mg/dL < 100 18 Comprehensive Metabolic 11/09/2017 [facility] Glucose 92 mg/dL N 74-106 19 Panel [address] [place], [place] [id number] [phone] BUN 26 mg/dL High 7-18 Creatinine 1.4 mg/dL High 0.6-1.3 Glom Filtration Rate, Estimate 53 mL/min >60 If >60 mL/min >60 20 BUN/Creat 18.5 ratio Sodium 141 mmol/L N [...] U/L N 45-117 CBS W/Automated Diff 11/09/2017 [facility] White Blood 5.4 K/uL N 3.4-10.[address] Count [place], [place] [id number] [phone] Red Blood Count 4.29 M/uL N 4.20-5.80 [...] 33.0-73.0 Lymph % 36.5 % N 20.0-42.0 [place] % 9.1 % N 0.0-10.0 Eo% 2.0 % N 0.0-6.6 Bas% 0.4 % N 0.0-1.1 Neut# 2.80 K/uL N 1.8-7.0 Lymph # 1.97 K/uL N 1.0-4.0 [place] # 0.49 K/uL N 0.0-0.8 Eos # 0.11 K/uL N 0.0-0.5 Baso # 0.02 K/uL N 0.0-0.1 Rapid Influenza 10/14/2017 [facility] Laboratory Influenza A NEGATIVE Negative 21 A & B Molecular [phone] Molecular Influenza B Molecular NEGATIVE Negative 230 Ua Routine 08/30/2017 N2N/CCD Import Ua PH 7.0 1 5.0-7.5 Ua Specific [place] 1.010 1 1.003-1.030 Ua Urobilinogen 0.2 E.U./dL 0.0-1.0 Laboratory test 04/19/2017 [facility] Prostate 1.50 ng/mL < 4.0 22, [address] [place] [address] Antigen [phone] Testosterone,Serum 354 ng/dL [phone] 24 CBS W/Automated 03/14/2017 [facility] White Blood 6.2 K/uL N 3.4-10.5 [address] Count [place], [place] [id number] [phone] Red Blood Count 4.17 M/uL Low 4.20-5.80 [...] 33.0-73.0 Lymph % 27.9 % N 20.0-42.0 [place] % 8.8 % N 0.0-10.0 Eo% 0.6 % N 0.0-6.6 Bas% 0.3 % N 0.0-1.1 Neut# 3.85 K/uL N 1.8-7.0 Lymph # 1.72 K/uL N 1.0-4.0 [place] # 0.54 K/uL N 0.0-0.8 Eos # 0.04 K/uL N 0.0-0.5 Baso # 0.02 K/uL N 0.0-0.1 Liver Function Tests 03/14/2017 [facility] Total Protein 7.4 g/dL N 6.4-8.[address] [place] [address] [phone] Albumin 3.9 g/dL N 3.4-5.0 Globulin 3.5 g/dL N 1.9-4.3 Alb/Glob 1.1 ratio Bilirubin,Total 0.4 mg/dL N 0.2-1.0 Bilirubin,Direct < 0.1 mg/dL N 0.0-0.2 Bilirubin,Indirect 0.3 mg/dL N 0.0-0.9 Sgot/Ast 18 U/L N 15-37 SGPT/Alt 21 U/L N 12-78 Alkaline Phosphatase 64 U/L N 45-117 LDL Cholesterol 03/14/2017 [facility] Cholesterol 212 mg/dL High <200 26 Profile [address] [place] [address] [phone] Triglycerides 150 mg/dL <150 27 HDL Cholesterol 43 mg/dL >40 28 LDL-Cholesterol 139 mg/dL < 100 29 Laboratory 03/14/2017 [facility] Thyroid Stim 1.25 uIU/mL N 0.30-4.20 test finding [address] [place] [place] [address] [phone] Laboratory 01/16/2017 [facility] H. Pylori Stool Negative Negative 30, test finding [address] Antigen [address] [place] [address] [phone] Celiac 01/11/2017 [facility] Immunoglobulin A 266 mg/dL 61-437 Disease Comp [address] [place] [address] [phone] Antigliadin Abs, IgG 4 units 0-19 32 Antigliadin Abs, IgA 5 units 0-19 33 Endomysial IgA Antibody Negative Negative t-Transglutaminase IgA <2 U/mL 0-3 34 t-Transglutaminase IgG <2 U/mL 0-5 35 Laboratory test 10/18/2016 [facility] Prostate 1.91 N < 4.0 36, [address] Specific ng/[place] [address] Antigen [phone] LDL Cholesterol 07/14/2016 [facility] Cholesterol 191 mg/dL N <200 38, [address] [place] [address] [phone] Triglycerides 270 mg/dL High <150 40 HDL Cholesterol 36 mg/dL Low >40 41 LDL-Cholesterol 101 mg/dL N < 100 42 Is Patient Fasting? Unknown Liver Function Tests 07/14/2016 [facility] Total Protein 7.0 g/dL N 6.4-8.[address] [place], [place] [id number] [phone] Albumin 3.8 g/dL N 3.4-5.0 Globulin 3.2 g/dL N 1.9-4.3 Alb/Glob 1.2 ratio N Bilirubin,Total 0.3 mg/dL N 0.2-1.0 Bilirubin,Direct < 0.1 mg/dL N 0.0-0.2 Bilirubin,Indirect 0.2 mg/dL N 0.0-0.9 Sgot/Ast 20 U/L N 15-37 SGPT/Alt 22 U/L N 12-78 Alkaline Phosphatase 69 U/L N 45-117 Is Patient Fasting? Unknown Laboratory 07/14/2016 [facility] Vitamin 29.9 Low 30.0-100.0 43 test finding [address] D,25-Hydroxy ng/mL [place], [place] [id number] [phone] Laboratory 03/15/2016 [facility] Thyroid Stim 1.17 0.30-4.20 test finding [address] Hormone uIU/[place] [address] [phone] Liver - 11/16/2015 [facility] Laboratory Total Protein 7.1 g/dL N 6.4-8.9 Hepatic Panel [phone] Albumin 4.4 g/dL N 3.2-5.2 Globulin 2.7 g/dL N 2-4 Albumin/Globulin Ratio 1.6 N 1-3 Total Bilirubin 0.50 mg/dL N 0.2-1.0 Direct Bilirubin 0.10 mg/dL N 0.03-0.18 Indirect Bilirubin 0.4 mg/dL N 0.3-1.0 Alkaline Phosphatase 54 U/L N 34-104 Alt 12 U/L N 7-52 Ast 20 U/L N 13-39 Laboratory test 11/16/2015 [facility] Laboratory LDL Cholesterol 128 mg/dL N 44 finding [phone] Direct Liver Function 07/14/2015 [facility] Total Protein 7.5 g/dL 6.4-8. Tests [address] [address] [phone] Albumin 4.0 g/dL 3.4-5.0 Globulin 3.5 g/dL 1.9-4.3 Alb/Glob 1.1 ratio Bilirubin,Total 0.3 mg/dL 0.2-1.0 Bilirubin,Direct < 0.1 mg/dL 0.0-0.2 Bilirubin,Indirect 0.2 mg/dL 0.0-0.9 Sgot/Ast 22 U/L 15-37 SGPT/Alt 25 U/L 12-78 Alkaline Phosphatase 72 U/L 45-117 LDL Cholesterol 07/14/2015 [facility] Cholesterol 178 mg/dL < 200 45 Profile [address] [place] [address] [phone] Triglycerides 102 mg/dL < 150 46 HDL Cholesterol 40 mg/dL > 40 47 LDL-Cholesterol 118 mg/dL < 100 48 Laboratory test 07/14/2015 [facility] Thyroid Stim 1.08 uIU/mL 0.36-3.74 finding [address] [facility] [place] [address] [phone] Vitamin D,25-Hydroxy 35.4 ng/mL 30.0-100.0 49 Laboratory test finding 11/12/2014 N2N/CCD Import CK 90 U/L 39-308 LDL Cholesterol Profile 11/12/2014 N2N/CCD Import Cholesterol 135 mg/dL < 200 50 HDL Cholesterol 32 mg/dL > 40 51 LDL-Cholesterol 79 mg/dL < 100 52 Triglycerides 119 mg/dL < 150 53 Liver Function Tests 11/12/2014 N2N/CCD Import Alb/Glob 1.1 ratio Albumin 3.8 g/dL 3.4-5.0 Alkaline Phosphatase 68 U/L 45-117 Bilirubin,Direct < 0.1 mg/dL 0.0-0.2 Bilirubin,Indirect 0.3 mg/dL 0.0-0.9 Bilirubin,Total 0.4 mg/dL 0.2-1.0 Globulin 3.4 g/dL 1.9-4.3 SGPT/Alt 20 U/L 12-78 Sgot/Ast 19 U/L 15-37 Total Protein 7.2 g/dL 6.4-8.2 Urine Culture And 08/06/2014 N2N/CCD Import Urine Culture (See Note) 54 Sensitivities Laboratory test 07/08/2014 N2N/CCD Import Free [...] 31.7-36.0 Mean Platelet Volume 9.9 fL 6.6-10.6 [place] # 0.42 K/uL 0.0-0.6 [place] % 7.7 % 0.0-10.0 Neut# 3.27 K/uL 1.8-7.0 Neut% 60.1 % 33.0-73.0 Platelet Count 231 K/uL 150-400 Red Blood Count 4.37 M/uL 4.20-5.80 Red Cell Distri Width %CV 12.8 % 11.6-15.8 Red Cell Distri Width SD 48.6 fl 36-51 White Blood Count 5.4 K/uL 3.4-10.5 LDL Cholesterol Profile 03/13/2014 N2N/CCD Import Cholesterol 149 mg/dL 120-200 HDL Cholesterol 36 mg/dL 29-83 LDL-Cholesterol 97 mg/dL 62-185 Triglycerides 80 mg/dL 16-231 Liver Function Tests 03/13/2014 N2N/CCD Import Alb/Glob 1.2 ratio Albumin 4.1 g/dL 3.5-5.0 Alkaline Phosphatase 57 U/L 50-136 Bilirubin,Direct < 0.1 mg/dL Low 0.1-0.4 Bilirubin,Indirect 0.4 mg/dL 0.0-0.9 Bilirubin,Total 0.5 mg/dL 0.2-1.2 Globulin 3.5 g/dL 1.9-4.3 SGPT/Alt 20 U/L Low 30-65 Sgot/Ast 22 U/L 16-40 Total Protein 7.6 g/dL 6.3-8.0 Laboratory test finding 07/10/2013 N2N/Technical Machine Import Creatine Kinase 50 U/L 0-200 CBC Auto Diff 07/10/2013 N2N/Technical Machine Import Abs Basophils 0 10^3/uL 0-0.2 Abs [...] Count 5.8 10^3/uL 4.8-10.8 Lipid Profile 07/10/2013 [employer] Machine Import Cholesterol 177 mg/dL Less than (Trig/Chol/HDL) 200 Cholesterol/HDL Ratio 4.7 Average High 1-4.44 HDL Cholesterol 38 mg/dL Low 40-60 55 LDL Cholesterol 116.8 High Less Than 100 56 Triglycerides 111 mg/dL 40-200 Liver Function Panel 07/10/2013 [employer] Import Albumin 4.1 g/dL 3.2-5.2 Albumin/Globulin Ratio 1.6 1-3 Alkaline Phosphatase 44 U/L 30-110 Alt 14 U/L 14-54 Ast 23 U/L 12-42 Direct Bilirubin 0.1 mg/dL 0.1-0.5 Globulin 2.6 g/dL 2-4 Indirect Bilirubin 0.4 mg/dL 0.3-1.0 Total Bilirubin 0.5 mg/dL 0.4-1.5 Total Protein 6.7 g/dL 6.2-8.1 Laboratory test 06/06/2013 [employer] Machine Import TSH (Thyroid 1.80 miu/mL 0.34- 5.60 finding Stimulating Horm) Lipid Profile 02/11/2013 [employer] Import Cholesterol 145 mg/dL Less than 200 (Trig/Chol/HDL) Cholesterol/HDL Ratio 3.8 Average 1-4.44 HDL Cholesterol 38 mg/dL Low 40-60 57 LDL Cholesterol 86.4 mg/dL Less Than 100 58 Triglycerides 103 mg/dL 40-200 Vitamin D, 25 02/11/2013 [employer] Machine Import 25-Hydroxy Vitamin D 33 ng/mL 59 Hydroxy Total 25-Hydroxy Vitamin D2 4.6 ng/mL 25-Hydroxy Vitamin D3 28 ng/mL CBC Auto Diff 11/05/2012 [employer] Import Abs Basophils 0.5 10^3/uL High 0- 0.2 Abs Eosinophils 0.1 10^3/uL 0-0.6 Abs Lymphocytes 1.3 10^3/uL 1.0-4.8 Abs Monocytes 0.3 10^3/uL 0-0.8 Abs Neutrophils 3.0 10^3/uL 1.5-7.7 Abs Nucleated RBC 0.01 10^3/uL Hematocrit 47 % 42-52 Hemoglobin 15.6 g/dL 14.0-18.0 Mean Corpuscular HGB Conc 33 g/dL 31-36 Mean Corpuscular Hemoglobin 35 pg High 27-31 Mean Corpuscular Volume 105 fL High 80-94 60 Mean Platelet Volume 9 um3 7.4-10.4 Platelet Count 211 10^3/uL 150-450 Red Blood Count 4.51 10^6/uL 4.0-5.4 Red Cell Distribution Width 13 % 10.5-15 White Blood Count 5.1 10^3/uL 4.8-10.8 Lipid Profile 11/05/2012 [employer] Import Cholesterol 209 mg/dL High Less than (Trig/Chol/HDL) 200 Cholesterol/HDL Ratio 5.4 Average High 1-4.44 HDL Cholesterol 39 mg/dL Low 40-60 61 LDL Cholesterol 142.0 mg/dL High Less Than 100 62 Triglycerides 140 mg/dL 40-200 Liver Function Panel 11/05/2012 [employer] Import Albumin 4.4 g/dL 3.2-5.2 Albumin/Globulin Ratio 2.0 1-3 Alkaline Phosphatase 50 U/L 30-110 Alt 15 U/L 14-54 Ast 24 U/L 12-42 Direct Bilirubin 0.1 mg/dL 0.1-0.5 Globulin 2.2 g/dL 2-4 Indirect Bilirubin 0.7 mg/dL 0.3-1.0 Total Bilirubin 0.8 mg/dL 0.4-1.5 Total Protein 6.6 g/dL 6.2-8.1 Manual Differential 11/05/2012 [employer] Machine Import Eosinophils % 2 % 0-6 Lymphocytes % 45 % 25-47 Monocytes % 3 % 0-13 Neutrophil % 50 % 38-83 RBC Morphology Normal Normal Laboratory test finding 07/05/2012 [employer]/Technical Machine Import Creatine Kinase 63 U/L 0-200 TSH (Thyroid Stimulating Horm) 2.29 MIU/ML 0.34-5.60 Lipid Profile 07/05/2012 [employer] Import Cholesterol 211 mg/dL High Less than 63 (Trig/Chol/HDL) 200 Cholesterol/HDL Ratio 6.2 AVERAGE High 1-4.44 HDL Cholesterol 34 mg/dL Low 40-60 64 LDL Cholesterol 130.2 mg/dL High Less Than 100 Triglycerides 234 mg/dL High 40-200 Liver Function Panel 07/05/2012 [employer] Import Albumin 4.3 GM/DL 3.2- 5.2 Albumin/Globulin Ratio 1.7 1-3 Alkaline Phosphatase 48 U/L 30-110 Alt 15 U/L 14-54 Ast 26 U/L 12-42 Direct Bilirubin 0.1 mg/dL 0.1-0.5 Globulin 2.5 GM/DL 2-4 Indirect Bilirubin 0.5 mg/dL 0.3-1.0 Total Bilirubin 0.6 mg/dL 0.1-1.0 65 Total Protein 6.8 GM/DL 6.2-8.1 Laboratory test 03/02/2012 [employer] Machine Import CPK (Creatine 80 U/L 0-200 finding Kinase) Lipid Profile 03/02/2012 [employer]/Technical Machine Import Cholesterol 199 mg/dL Less Than 66 (Trig/Chol/HDL) 200 Cholesterol/HDL Ratio 6.03 AVERAGE High 1-4.97 High Density Lipoprotein 33 mg/dL Low 40-60 67 Low Density Lipoprotein 112 mg/dL High Less Than 100 68 Triglyceride 269 mg/dL High 40-200 Liver Function Panel 03/02/2012 [employer] Import Albumin 4.0 GM/DL 3.2- 5.2 Albumin/Globulin Ratio 1.5 1-3 Alkaline Phosphatase 49 U/L 39-117 Alt (SGPT) 15 U/L Low 17-63 Ast (Sgot) 23 U/L 12-42 Bilirubin Direct 0.1 mg/dL 0.1-0.5 Bilirubin Total 0.7 mg/dL 0.4-1.5 69 Globulin 2.7 GM/DL 2-4 Indirect Bilirubin 0.6 mg/dL 0.3-1.0 70 Total Protein 6.7 GM/DL 6.2-8.1 Laboratory test 11/24/2011 [employer] Machine Import CPK (Creatine 75 U/L 0-200 finding Kinase) Folic Acid 21.6 ng/mL See Below 71 TSH 1.48 MIU/ML 0.34-5.60 Vitamin B12 517 pg/mL 180-914 Liver Function Panel 11/24/2011 [employer] Machine Import Albumin 4.0 GM/DL 3.2- 5.2 Albumin/Globulin Ratio 1.5 1-3 Alkaline Phosphatase 50 U/L 39-117 Alt (SGPT) 14 U/L Low 17-63 Ast (Sgot) 24 U/L 12-42 Bilirubin Direct 0.1 mg/dL 0.1-0.5 Bilirubin Total 0.5 mg/dL 0.4-1.5 72 Globulin 2.6 GM/DL 2-4 Indirect Bilirubin 0.4 mg/dL 0.3-1.0 73 Total Protein 6.6 GM/DL 6.2-8.1 Lipid Profile 11/24/2011 [employer] Machine Import Cholesterol 180 mg/dL Less Than 74 (Trig/Chol/HDL) 200 Cholesterol/HDL Ratio 6.00 AVERAGE High 1-4.97 High Density Lipoprotein 30 mg/dL Low 40-60 75 Low Density Lipoprotein 120 mg/dL High Less Than 100 76 Triglyceride 151 mg/dL 40-200 Basic Metabolic Panel 11/24/2011 N[facility]N/CCD Import Anion Gap 5.0 mmol/L 2- 11 77 BUN 16 mg/dL 6-24 BUN/Creatinine Ratio 14.5 8-20 Calcium 9.3 mg/dL 8.1-9.9 Chloride 104 mmol/L 101-111 Co2 (Carbon Dioxide) 29.0 mmol/L 22-32 Creatinine 1.1 mg/dL 0.50-1.40 Glucose 94 mg/dL 70-100 One Over Creatinine 0.90 Potassium 4.2 mmol/L 3.5-5.0 Sodium 138 mmol/L 135-145 eGFR 85.6 > 60 78 eGFR Non- 66.6 > 60 Liver Function Panel 07/18/2011 N2N/CCD Import Albumin 4.2 GM/DL 3.2- 5.2 Albumin/Globulin Ratio 1.4 1-3 Alkaline Phosphatase 51 U/L 39-117 Alt (SGPT) 16 U/L Low 17-63 Ast (Sgot) 24 U/L 12-42 Bilirubin Direct 0.1 mg/dL 0.1-0.5 Bilirubin Total 0.7 mg/dL 0.4-1.5 79 Globulin 3.1 GM/DL 2-4 Indirect Bilirubin 0.6 mg/dL 0.3-1.0 80 Total Protein 7.3 GM/DL 6.2-8.1 Lipid Profile 07/18/2011 [facility]/CCD Import Cholesterol 187 mg/dL Less Than 81 (Trig/Chol/HDL) 200 Cholesterol/HDL Ratio 5.50 AVERAGE High 1-4.97 High Density Lipoprotein 34 mg/dL Low 40-60 82 Low Density Lipoprotein 121 mg/dL High Less Than 100 83 Triglyceride 162 mg/dL 40-200 Laboratory test 07/18/2011 [employer]/CCD Import CPK (Creatine 76 U/L 0-200 finding Kinase) 1 E03.9 E78.5 2 Note: Persistent reduction for 3 months or more in an eGFR <60 mL/min/1.73 m2 defines CKD. Patients with eGFR values >/=60 mL/min/1.73 m2 may also have CKD if evidence of persistent proteinuria is present. The original MDRD equation for estimated GFR is not valid for patients less than 18 years of age. Additional information may be found at www.kdoqi.org. 3 Reference Guidelines*: Desirable: ........... < 200 mg/dL Borderline High: ..... 200-239 mg/dL High: ................ >=240 mg/dL * The National Cholesterol Education Program (NCEP) 4 Reference Guidelines*: Normal: ............. < 150 mg/dL Borderline High: .... 150-199 mg/dL High: ............... 200-499 mg/dL Very High: .......... > 500 mg/dL * Source: National Cholesterol Education Program (NCEP) 5 Reference Guidelines*: Low HDL: ..... < 40 mg/dL Normal: ..... 40-60 mg/dL Desirable: ... > 60 mg/dL *The National Cholesterol Education Program(NCEP) 6 Reference Guidelines*: Optimal:........... <100 mg/dL Near Optimal....... 100-129 mg/dL Borderline High.... 130-159 mg/dL High............... 160-189 mg/dL Very High.......... >=190 mg/dL * Source: National Cholesterol Education Program (NCEP) 7 R31.9 8 URINE, CLEAN CATCH 9 E78.5 10 Reference Guidelines*: Desirable: ........... < 200 mg/dL Borderline High: ..... 200-239 mg/dL High: ................ >=240 mg/dL * The National Cholesterol Education Program (NCEP) 11 Reference Guidelines*: Normal: ............. < 150 mg/dL Borderline High: .... 150-199 mg/dL High: ............... 200-499 mg/dL Very High: .......... > 500 mg/dL * Source: National Cholesterol Education Program (NCEP) 12 Reference Guidelines*: Low HDL: ..... < 40 mg/dL Normal: ..... 40-60 mg/dL Desirable: ... > 60 mg/dL *The National Cholesterol Education Program(NCEP) 13 Reference Guidelines*: Optimal:........... <100 mg/dL Near Optimal....... 100-129 mg/dL Borderline High.... 130-159 mg/dL High............... 160-189 mg/dL Very High.......... >=190 mg/dL * Source: National Cholesterol Education Program (NCEP) 14 R14.0 E03.9 E78.5 15 Reference Guidelines*: Desirable: ........... < 200 mg/dL Borderline High: ..... 200-239 mg/dL High: ................ >=240 mg/dL * The National Cholesterol Education Program (NCEP) 16 Reference Guidelines*: Normal: ............. < 150 mg/dL Borderline High: .... 150-199 mg/dL High: ............... 200-499 mg/dL Very High: .......... > 500 mg/dL * Source: National Cholesterol Education Program (NCEP) 17 Reference Guidelines*: Low HDL: ..... < 40 mg/dL Normal: ..... 40-60 mg/dL Desirable: ... > 60 mg/dL *The National Cholesterol Education Program(NCEP) 18 Reference Guidelines*: Optimal:........... <100 mg/dL Near Optimal....... 100-129 mg/dL Borderline High.... 130-159 mg/dL High............... 160-189 mg/dL Very High.......... >=190 mg/dL * Source: National Cholesterol Education Program (NCEP) 19 R14.0 20 Note: Persistent reduction for 3 months or more in an eGFR <60 mL/min/1.73 m2 defines CKD. Patients with eGFR values >/=60 mL/min/1.73 m2 may also have CKD if evidence of persistent proteinuria is present. The original MDRD equation for estimated GFR is not valid for patients less than 18 years of age. Additional information may be found at www.kdoqi.org. 21 Linker Up: [id number] 22 R97.20 23 THIS ASSAY IS NOT INTENDED A CANCER SCREENING TEST The concentration of PSA in a given specimen, determined with assays from different manufacturers, can vary due to differences in assay methods and reagent specificity. Values obtained from different assay methods cannot be used interchangeably. Method: [employer] Chemiluminescent immunoassay. 24 Please note reference interval change Adult male reference interval is based on a population of healthy nonobese males (BMI <30) between 19 and 39 years old. Brennan et.al. JCEM 2017,102;8243-4837. PMID: 92700309. Performed at: [facility] [place] [id number] Correction Officer Supervisor: Sharmaine Winkler MD, Phone: [phone] 25 E03.9 E78.5 U07.528 26 Reference Guidelines*: Desirable: ........... < 200 mg/dL Borderline High: ..... 200-239 mg/dL High: ................ >=240 mg/dL * The National Cholesterol Education Program (NCEP) 27 Reference Guidelines*: Normal: ............. < 150 mg/dL Borderline High: .... 150-199 mg/dL High: ............... 200-499 mg/dL Very High: .......... > 500 mg/dL * Source: National Cholesterol Education Program (NCEP) 28 Reference Guidelines*: Low HDL: ..... < 40 mg/dL Normal: ..... 40-60 mg/dL Desirable: ... > 60 mg/dL *The National Cholesterol Education Program(NCEP) 29 Reference Guidelines*: Optimal:........... <100 mg/dL Near Optimal....... 100-129 mg/dL Borderline High.... 130-159 mg/dL High............... 160-189 mg/dL Very High.......... >=190 mg/dL * Source: National Cholesterol Education Program (NCEP) 30 R14.0 31 Performed at: [facility] [address] [id number] Correction Officer Supervisor: Sharmaine Winkler MD, Phone: [phone] 32 Negative 0 - 19 Weak Positive 20 - 30 Moderate to Strong Positive >30 33 Negative 0 - 19 Weak Positive 20 - 30 Moderate to Strong Positive >30 34 Negative 0 - 3 Weak Positive 4 - 10 Positive >10 Tissue Transglutaminase (tTG) has been identified as the endomysial antigen. Studies have demonstr- ated that endomysial IgA antibodies have over 99% specificity for gluten sensitive enteropathy. 35 Negative 0 - 5 Weak Positive 6 - 9 Positive >9 Performed at: [address] [id number] Correction Officer Supervisor: Sharmaine Winkler MD, Phone: [phone] 36 N40.1 37 THIS ASSAY IS NOT INTENDED A CANCER SCREENING TEST The concentration of PSA in a given specimen, determined with assays from different manufacturers, can vary due to differences in assay methods and reagent specificity. Values obtained from different assay methods cannot be used interchangeably. Method: [employer] Chemiluminescent immunoassay. 38 E78.5 E55.9 39 Reference Guidelines*: Desirable: ........... < 200 [...] D deficiency has been defined by the [place] of [employer] and an Endocrine Society practice guideline as a level of serum 25-OH vitamin D less than 20 ng/mL (1,2). The Endocrine Society went on to further define vitamin D insufficiency as a level between 21 and 29 ng/mL (2). 1. IOM ([place] of [employer]). 2010. Dietary reference intakes for calcium and D. [place]: The National Academies Press. 2. Madelyn MF, Sofi EASLEY, Collette JOSÉ, et al. Evaluation, treatment, and prevention of vitamin D deficiency: an Endocrine Society clinical practice guideline. JCEM. 2010; 96(7):1911-30. Performed at: RN [facility] [address] [id number] Correction Officer Supervisor: Sharmaine Winkler MD, Phone: [phone] 44 Desirable: <100 mg/dL Near Optimal: 100-129 mg/dL Borderline High: 130-159 mg/dL High: 160-189 mg/dL Very High: >189 mg/dL 45 Reference Guidelines*: Desirable: ........... < 200 mg/dL Borderline High: ..... 200-239 mg/dL High: ................ >=240 mg/dL * The National Cholesterol Education Program (NCEP) 46 Reference Guidelines*: Normal: ............. < 150 mg/dL Borderline High: .... 150-199 mg/dL High: ............... 200-499 mg/dL Very High: .......... > 500 mg/dL * Source: National Cholesterol Education Program (NCEP) 47 Reference Guidelines*: Low HDL: ..... < 40 mg/dL Normal: ..... 40-60 mg/dL Desirable: ... > 60 mg/dL *The National Cholesterol Education Program(NCEP) 48 Reference Guidelines*: Optimal:........... <100 mg/dL Near Optimal....... 100-129 mg/dL Borderline High.... 130-159 mg/dL High............... 160-189 mg/dL Very High.......... >=190 mg/dL * Source: National Cholesterol Education Program (NCEP) 49 Vitamin D deficiency has been defined by the [place] of [employer] and an Endocrine Society practice guideline as a level of serum 25-OH vitamin D less than 20 ng/mL (1,2). The Endocrine Society went on to further define vitamin D insufficiency as a level between 21 and 29 ng/mL (2). 1. IOM ([place] of [employer]). 2010. Dietary reference intakes for calcium and D. [place]: The National Academies Press. 2. Madelyn MF, Sofi [place], Collette JOSÉ, et al. Evaluation, treatment, and prevention of vitamin D deficiency: an Endocrine Society clinical practice guideline. JCEM. 2010; 96(7):1911-30. Performed at: RN - [facility] [address] [id number] Correction Officer Supervisor: Sharmaine Winkler MD, Phone: [phone] 50 Reference Guidelines*: Desirable: ........... < 200 mg/dL Borderline High: ..... 200-239 mg/dL High: ................ >=240 mg/dL * The National Cholesterol Education Program (NCEP) 51 Reference Guidelines*: Low HDL: ..... < 40 mg/dL Normal: ..... 40-60 mg/dL Desirable: ... > 60 mg/dL *The National Cholesterol Education Program(NCEP) 52 Reference Guidelines*: Optimal:........... <100 mg/dL Near Optimal....... 100-129 mg/dL Borderline High.... 130-159 mg/dL High............... 160-189 mg/dL Very High.......... >=190 mg/dL * Source: National Cholesterol Education Program ( NCEP) 53 Reference Guidelines*: Normal: ............. < 150 mg/dL Borderline High: .... 150-199 mg/dL High: ............... 200-499 mg/dL Very High: .......... > 500 mg/dL * Source: National Cholesterol Education Program (NCEP) 54 RUN DATE: 08/08/14 [facility] LAB LIVE PAGE 1 RUN TIME: [address] [place] [id number] Specimen Inquiry ----- Name: XIN MONTERROSO Farzana : [address]: Bautista Angelo MD Acct: [id number] Unit: [id number] AGE: 69 Location: [facility] Re SEX: M Status: DEP ER ----- SPEC: [id number] DIONY: 08/06/14-[address]: Bautista Angelo MD REQ: [id number] RECD: 08/06/14 STATUS: HERNAN MODI DR: Abi MARINELLI _ SOURCE: URINE SPDESC: ORDERED: Urine Culture ----- Procedure Result Verified Site ----- Urine Culture Final 08/08/14-36 ML No Growth Day 2 (<1,000 CFU/ mL) ----- END OF REPORT * ML=Testing performed at Main Lab DEPARTMENT OF PATHOLOGY, [address] [place] [address] Nasir Gamez M.D. Director [facility] # [id number] 55 HDL Interpretation: Undesirable: High Risk: Less than 40 mg/dL Desirable: Low Risk: Greater than 60 mg/dL 56 LDL Interpretation: Low Risk Optimal Level: LDL Less than 100 mg/dL Near or Above Optimal: LDL 100-129 mg/dL Borderline High Risk: LDL 130-159 mg/dL High Risk : LDL 160-189 mg/dL Very High Risk: LDL Greater than 189 mg/dL 57 HDL Interpretation: Undesirable: High Risk: Less than 40 MG/DL Desirable: Low Risk: Greater than 60 MG/DL 58 LDL Interpretation: Low Risk Optimal Level: LDL Less than 100 MG/DL Near or Above Optimal: LDL 100-129 MG/DL Borderline High Risk: LDL 130-159 MG/DL High Risk : LDL 160-189 MG/DL Very High Risk: LDL Greater than 189 MG/DL 59 -- REFERENCE VALUE -- 25-HYDROXY D TOTAL (D2+D3) Optimum levels in the normal population are 25-80 Test Performed by: [address] [address] Physician Liaison: Tono Condon III, M.D. 60 Incubated at 37 C for 30 min, no change 61 HDL Interpretation: Undesirable: High Risk: Less than 40 MG/DL Desirable: Low Risk: Greater than 60 MG/DL 62 LDL Interpretation: Low Risk Optimal Level: LDL Less than 100 MG/DL Near or Above Optimal: LDL 100-129 MG/DL Borderline High Risk: LDL 130-159 MG/DL High Risk : LDL 160-189 MG/DL Very High Risk: LDL Greater than 189 MG/DL 63 Desirable: Less than 200 MG/DL Borderline-High Risk: 200-239 MG/DL High- Risk: 240 MG/DL and over 64 HDL Interpretation: Undesirable: High Risk: Less than 40 MG/DL Desirable: Low Risk: Greater than 60 MG/DL 65 A metabolite of Naproxen, O-desmethylnaproxen, has been shown to interfere with the Jendrassik-Bessie method for measuring total bilirubin. Samples from patients who have taken Naproxen have shown spurious elevation in total bilirubin levels. 66 CHOLESTEROL INTERPRETATION: Desirable: Less than 200 MG/DL Borderline-High Risk: 200-239 MG/DL High-Risk: 240 MG/DL and over 67 HDL INTERPRETATION: Undesirable: High Risk: Less than 40 MG/DL Desirable: Low Risk: Greater than 60 MG/DL 68 LDL INTERPRETATION: Low Risk Optimal Level: LDL Less than 100 MG/DL Near or Above Optimal: LDL 100-129 MG/DL Borderline High Risk: LDL 130-159 MG/DL High Risk : LDL 160-189 MG/DL Very High Risk: LDL Greater than 189 MG/DL 69 A metabolite of Naproxen, O-desmethylnaproxen, has been shown to interfere with the Jendrassik-Bessie method for measuring total bilirubin. Samples from patients who have taken Naproxen have shown spurious elevation in total bilirubin levels. 70 Please note updated reference range, effective 04/22/10 71 Please note: New reference range, effective 09/22/11 NORMAL REFERENCE RANGE: GREATER THAN 4.1 NG/ML 72 A metabolite of Naproxen, O-desmethylnaproxen, has been shown to interfere with the Jendrassik-Kim method for measuring total bilirubin. Samples from patients who have taken Naproxen have shown spurious elevation in total bilirubin levels. 73 Please note updated reference range, effective 04/22/10 74 CHOLESTEROL INTERPRETATION: Desirable: Less than 200 MG/DL Borderline-High Risk: 200-239 MG/DL High-Risk: 240 MG/DL and over 75 HDL INTERPRETATION: Undesirable: High Risk: Less than 40 MG/DL Desirable: Low Risk: Greater than 60 MG/DL 76 LDL INTERPRETATION: Low Risk Optimal Level: LDL Less than 100 MG/DL Near or Above Optimal: LDL 100-129 MG/DL Borderline High Risk: LDL 130-159 MG/DL High Risk : LDL 160-189 MG/DL Very High Risk: LDL Greater than 189 MG/DL 77 Anion gap measurement may be of limited value in the presence of any alkalosis, especially in a combined acid base disorder. . 78 Because ethnic data is not always readily [...] 15-29 5 Kidney failure <15 (or dialysis) 79 A metabolite of Naproxen, O-desmethylnaproxen, has been shown to interfere with the Jendrassik-Bessie method for measuring total bilirubin. Samples from patients who have taken Naproxen have shown spurious elevation in total bilirubin levels. 80 Please note updated reference range, effective 04/22/10 81 CHOLESTEROL INTERPRETATION: Desirable: Less than 200 MG/DL Borderline-High Risk: 200-239 MG/DL High-Risk: 240 MG/DL and over 82 HDL INTERPRETATION: Undesirable: High Risk: Less than 40 MG/DL Desirable: Low Risk: Greater than 60 MG/DL 83 LDL INTERPRETATION: Low Risk Optimal Level: LDL Less than 100 MG/DL Near or Above Optimal: LDL 100-129 MG/DL Borderline High Risk: LDL 130-159 MG/DL High Risk : LDL 160-189 MG/DL Very High Risk: LDL Greater than 189 MG/DL Procedures Date Code Description Status 09/20/2018 54761 Measurement Post Voiding Residual Urine By Completed Ultrasound,Non-Imaging 09/20/2018 69452 complex uroflowmetry electronic Completed 08/21/2018 16148 Measurement Post Voiding Residual Urine By Completed Ultrasound,Non-Imaging 04/18/2017 98771 EGD With Biopsy Completed 04/12/2017 31188 Breath Hydrogen Test Completed 02/09/2017 50358 Breath Hydrogen Test Completed 03/14/2016 05611 EKG-Tracing And Report Completed 05/14/2014 [id number] Colonoscopy Completed 05/15/2012 08649 Remove Impacted Cerumen Completed 09/21/2010 55226 Remove Impacted Cerumen Completed 11/19/2008 26793 EKG-Tracing And Report Completed 12/28/2007 [id number] Colonoscopy Completed Encounters Type Date Location Provider Dx Diagnosis Office Visit 11/26/2018 [facility] [place], E78.5 Hyperlipidemia, 11:15a Office PAOLA Alex unspecified E03.9 Hypothyroidism, unspecified Office Visit 10/17/2018 11:00a [facility] [place], S90.934A Unsp superficial Office YVES Yi injury of right lesser toe(s), init encntr L02.32 Furuncle of buttock Office Visit 09/20/2018 3:15p Urology Ally[facility] Evangelista, N40.1 Benign prostatic M.D. hyperplasia with lower urinary tract symp Office Visit 09/03/2018 10:00a GI Jett Gutierrez, K58.1 Irritable bowel MD syndrome with constipation R14.0 Abdominal distension (gaseous) Office Visit 08/21/2018 11:15a Urology Ally[facility] Evangelista, N40.1 Benign prostatic M.D. hyperplasia with lower urinary tract symp Z12.5 Encounter for screening for malignant neoplasm of prostate Office Visit 08/03/2018 10:30a [facility] [place], F41.9 Anxiety disorder, Office Abi, RPAC unspecified R14.0 Abdominal distension (gaseous) L82.1 Other seborrheic keratosis Office Visit 07/03/2018 1:30p [facility] [place], F41.9 Anxiety disorder, Office Abi, RPAC unspecified S50.811A Abrasion of right forearm, initial encounter R14.0 Abdominal distension (gaseous) E78.5 Hyperlipidemia, unspecified Office Visit 05/23/2018 [facility] [place], B35.9 Dermatophytosis, 10:00a Office Abi, RPAC unspecified I71.4 Abdominal aortic aneurysm, without rupture Office Visit 04/11/2018 8:00a HUMBERTO Graham MD R63.4 Abnormal weight loss R14.0 Abdominal distension (gaseous) Office Visit 03/12/2018 9:30a [facility] [place], E78.5 Hyperlipidemia, Office Abi, RPAC unspecified I71.4 Abdominal aortic aneurysm, without rupture Office Visit 02/07/2018 9:00a HUMBERTO Graham MD R63.4 Abnormal weight loss R14.0 Abdominal distension (gaseous) Office Visit 01/17/2018 9:15a [facility] [place], R14.0 Abdominal Office Abi, RPAC distension (gaseous) D48.5 Neoplasm of uncertain behavior of skin Office Visit 12/12/2017 11:15a [facility] [place], R14.0 Abdominal Office Abi, RPAC distension (gaseous) H69.92 Unspecified Eustachian tube disorder, left ear Office Visit 11/10/2017 9:30a [facility] [place], R14.0 Abdominal Office Abi, RPAC distension (gaseous) E03.9 Hypothyroidism, unspecified E78.5 Hyperlipidemia, unspecified Office Visit 11/08/2017 9:45a HUMBERTO Graham MD R14.0 Abdominal distension (gaseous) Office Visit 09/12/2017 2:30p [facility] [place], S91.105A Unsp opn wnd left Office Chante Robledo lesser toe(s) w/o damage to nail, init Office Visit 07/19/2017 10:00a HUMBERTO Graham MD R14.0 Abdominal distension (gaseous) K29.50 Unspecified chronic gastritis without bleeding Office Visit 07/14/2017 9:15a [facility] [place], L30.9 Dermatitis, Office Abi [facility] unspecified W54.0xxS Bitten by dog, sequela W54.0xxS Bitten by dog, sequela Office Visit 07/06/2017 10:15a Primary Care Diana Mc, B02.9 Zoster without Office Chante complications W54.0xxS Bitten by dog, sequela W54.0xxS Bitten by dog, sequela Office Visit 07/03/2017 2:30p Primary Care [place], W54.0xxA Bitten by dog, Office Abi [facility] initial encounter W54.0xxA Bitten by dog, initial encounter S50.871A Other superficial bite of right forearm, initial encounter S50.871A Other superficial bite of right forearm, initial encounter Office Visit 06/23/2017 9:45a HUMBERTO Graham MD R14.0 Abdominal distension (gaseous) K29.50 Unspecified chronic gastritis without bleeding Office Visit 04/12/2017 10:30a HUMBERTO Graham MD R14.0 Abdominal distension (gaseous) R14.3 Flatulence Office Visit 03/14/2017 9:30a Primary Care [place], J45.991 [facility] K13.79 Other lesions of oral mucosa E03.9 Hypothyroidism, unspecified E78.5 Hyperlipidemia, unspecified Office Visit 01/11/2017 11:15a HUMBERTO Graham MD R14.0 Abdominal distension (gaseous) R14.3 Flatulence Office Visit 12/26/2016 2:15p Primary Care [place], S61.031A Pnctr w/o fb Office Abi [facility] of right thumb w/o damage to nail, init W54.0xxA Bitten by dog, initial encounter R14.3 Flatulence Office Visit 12/06/2016 1:45p Primary Care [place], Abi, R14.3 Flatulence Office [facility] K58.1 Irritable bowel syndrome with constipation Office Visit 11/14/2016 9:30a Primary Care [place], R05 Cough Office Abi, [facility] Office Visit 11/03/2016 1:00p Primary Care [place], J04.0 Acute laryngitis Office Abi, [facility] Office Visit 08/19/2016 9:15a Primary Care [place], H92.02 Otalgia, left ear Office Abi, [facility] Office Visit 07/26/2016 9:15a Primary Care [place], R14.2 Eructation Office Abi, [facility] Office Visit 07/14/2016 9:45a Primary Care [place], E78.5 Hyperlipidemia, Office Abi, [facility] unspecified E55.9 Vitamin D deficiency, unspecified Office Visit 03/23/2016 9:15a Primary Care [place], J45.991 Cough variant Office Abi, [facility] asthma J30.9 Allergic rhinitis, unspecified Office Visit 03/14/2016 9:30a Primary Care [place], J45.991 Cough variant Office Abi, [facility] asthma E03.9 Hypothyroidism, unspecified I49.9 Cardiac arrhythmia, unspecified Office Visit 11/13/2015 9:30a Primary Care [place], K59.00 Constipation, Office Bai, [facility] unspecified E03.9 Hypothyroidism, unspecified E78.2 Mixed hyperlipidemia Office Visit 07/13/2015 9:30a Primary Care [place], E55.9 Vitamin D Office Abi, [facility] deficiency, unspecified Z23 Encounter for immunization E03.8 Other specified hypothyroidism E78.1 Pure hyperglyceridemia Office Visit 06/22/2015 1:45p Primary Care [place], R05 Cough Office Abi, [facility] Office Visit 03/12/2015 10:00a Primary Care [place], 787.3 Flatulence Office Abi, [facility] Eructation & Gas Pain 244.8 Hypothyroidism Other Spec 493.82 cough variant asthma Plan of Treatment Future Appointment(s):08/05/2019 11:00 am - Jett Gutierrez MD at GI09/19/2019 11:00 am - Allyson Evangelista M.D. at [id number]/05/2019 - Jett Gutierrez, MDR14.0 Abdominal distension (gaseous)Comments:avoid trigger foods , follow low fodmaps dietK58.1 Irritable bowel syndrome with constipationComments:continue with miralaxFollow up:5 luhxzcD40.50 Unspecified chronic gastritis without bleedingComments:renew ranitidine but would like to taper drop one dose each weekZ12.11 Encounter for screening for malignant neoplasm of colonComments: patient is due for repeat colonoscopy in 5 years
--- OUTSIDE RECORDS SUMMARY | 2019-04-04 11:44 | XMS REPORT | Continuity of Care Document ---
:1945 External Reference #:[id number] Author Name Raciel Pedro Care Team Providers Name Role Phone Abi Herr RPA Primary Care Physician Unavailable Payers Date Identification Numbers Payment Provider Subscriber Policy Number: [id number] Medicare Zac Monterroso PayID: [id number] [address] [place] [address] Policy Number: [id number] [facility] Zac Monterroso PayID: [id number] [address] [address] [place] [address] Problems Active Problems Provider Date Internal hemorrhoids Abi Herr, PA Onset: 02/04/2019 Irritable bowel syndrome characterized by Abi Herr, PA Onset: 2018 constipation Diverticular disease Abibridgett Herr, PA Onset: 02/04/2019 Flatulence, eructation and gas pain Abi Herr, PA Onset: 02/04/2019 Gluten sensitivity Abi Herr, PA Onset: 03/05/2019 Lactose free diet Abi Herr, PA Onset: 03/05/2019 Hiatal hernia Abi Herr, PA Onset: 02/04/2019 Atrophic gastritis Abi Herr, PA Onset: 02/04/2019 Cataract Abi [place], PA Onset: 02/04/2019 Glaucoma Abi [place], PA Onset: 02/04/2019 Developmental delay Abibridgett Herr, PA Onset: 02/04/2019 Benign prostatic hypertrophy with outflow Abi Herr, PA Onset: 2018 obstruction Raised prostate specific antigen Abi Herr, PA Onset: 02/04/2019 Note: mild elevation Hyperlipidemia Abi Herr, PA Onset: 02/04/2019 Abdominal aortic aneurysm Abi Herr, PA Onset: 02/04/2019 Hypothyroidism Abi Herr, PA Onset: 02/04/2019 Cough variant asthma YVES Mackey Onset: 02/04/2019 Family History Date Family Member(s) Observation Comments Father Heart Disease Mouth Cancer,Pipe Smoker,Alcohol Abuse Mother Heart Disease Mother Arthritis First Brother Lung Cancer Social History Type Date Description Comments Sex Unknown Lives With Alone Diet Healthy, Well Balanced Occupation Retired ETOH Use Occasionally consumes alcohol Tobacco Use Start: Unknown Patient has never smoked Smoking Status Reviewed: 03/05/19 Patient has never smoked Allergies, Adverse Reactions, Alerts Active Allergies Reaction Severity Comments Date Amoxicillin / Clavulanate 03/05/2019 Medications Active Medications SIG Qnty Indications Ordering Date Provider Fenofibrate 1 by mouth every 90tabs Dyllan 03/05/2019 160mg Tablets other day MD Smith Polyethylene Glycol one capful mixed 500gm Dyllan 03/05/2019 3350 with 17 ounces of MD Smith 3350 Granules liquid Multi Vitamin Daily 1 by mouth every 30tabs Dyllan 03/05/2019 day MD Smith Tablets Probiotic Daily 1 by mouth every 90caps Dyllan 03/05/2019 Capsules day MD Smith Vitamin D3 High 1 by mouth every 60caps Dyllan 03/05/2019 Potency day MD Smith 1000Unit Capsules Levothyroxine Sodium 1 by mouth every 90tabs Dyllan 02/28/2019 azalea Mtz MD 75mcg Tablets Montelukast Sodium 1 tab by mouth 90tabs Dyllan 02/04/2019 10mg every day MD Smith Tablets Ranitidine 150 Maximum 1 tab by mouth Jett Gutierrez Strength every dayMD 150mg Tablets tapering Tamsulosin HCL 1 by mouth every Trino Zelaya 0.4mg day Capsules History Medications Aspirin 1 by mouth every 90tabs Dyllan Mtz MD 03/05/2019 - 81mg day 03/05/2019 Tablets Vital Signs Date Vital Result Comment 03/05/2019 1:43pm Height 70 inches 5'10" Weight 178.00 lb Heart Rate 62 /min BP Systolic Sitting 116 mmHg BP Diastolic Sitting 78 mmHg O2 % BldC Oximetry 97 % BMI (Body Mass Index) 25.5 kg/m2 Procedures Date Code Description Status 05/14/2014 [id number] Colonoscopy Completed 05/14/2008 [id number] Colonoscopy Completed Encounters Type Date Location Provider Dx Diagnosis Office Visit 12/04/2018 [facility] AT Jesus Monson MD L82.1 Other seborrheic 12:40p [place] keratosis L21.8 Other seborrheic dermatitis D22.62 Melanocytic nevi of left upper limb, including shoulder Plan of Treatment Future Appointment(s):07/09/2019 10:00 am - YVES Mackey at [facility]12/10/2019 10:30 am - Jesus Monson MD at [facility] AT [id number] - Abi Herr, PAM25.569 Pain in unspecified kneeNew Xrays:Knee 3 Views Bilateral, Ordered: 03/05/19Comments:Recommend topical rub such as AspercremeAllNew Medication:Fenofibrate 160 mg - 1 by mouth every other dayPolyethylene Glycol 3350 3350 - one capful mixed with 17 ounces of liquidMulti Vitamin Daily - 1 by mouth every dayProbiotic Daily - 1 by mouth every dayVitamin D3 High Potency 1000 Unit - 1 by mouth every dayAspirin 81 mg - 1 by mouth every dayComments:Discontinue Aspirin, make Fenofibrate every other dayFollow up:4 months
[2019-04-04 12:07] VITALS: BP 118/69
--- NOTE | 2019-04-04 12:32 | UC ---
Skin Complaint HPI - History of Current Complaint Chief Complaint: UCSkin Time Seen by Provider: 04/04/19 12:26 Stated Complaint: POSS SPIDER BITE Pain Intensity: 0 - Allergy/Home Medications Allergies/Adverse Reactions: Allergies Allergy/AdvReac Type Severity Reaction Status Date / Time gluten Allergy Unknown Verified 04/04/19 12:07 Reaction Details lactose Allergy Unknown Verified 04/04/19 12:07 Reaction Details codeine AdvReac Constipatio Verified 04/04/19 12:07 n PMH/Surg Hx/FS Hx/Imm Hx Endocrine History: Hypothyroidism - Surgical History Surgical History: Yes Surgery Procedure, Year, and Place: double hernia (inguinal). HEMORROID BANDING. pilonidal cyst. appy - Family History Known Family History: Positive: Hypertension - Social History Occupation: Retired Lives: Alone Alcohol Use: Rare Alcohol Amount: once Substance Use Type: None Smoking Status (MU): Never Smoked Tobacco - Immunization History Most Recent Influenza Vaccination: May 2017 Most Recent Tetanus Shot: 12/20/16 Review of Systems All Other Systems Reviewed And Are Negative: Yes Skin: Positive: Other - Spot on right posterior shoulder/ upper back. Is Patient Immunocompromised?: No Physical Exam Triage Information Reviewed: Yes Appearance: Well-Appearing, No Pain Distress, Well-Nourished Vital Signs: Initial Vital Signs Temp 98.4 F 04/04/19 12:01 Pulse 65 04/04/19 12:01 Resp 16 04/04/19 12:01 BP 118/69 04/04/19 12:01 Pulse Ox 98 04/04/19 12:01 Vital Signs Reviewed: Yes ENT: Positive: Pharynx normal, TMs normal Neck exam: Normal Respiratory Exam: Normal Cardiovascular Exam: Normal Musculoskeletal Exam: Normal Neurological Exam: Normal Psychological Exam: Normal Skin: Positive: Significant Lesion(s) - right upper back postrior shoulder 1.4cm erythematous scaling patch ? scab Course/Dx - Differential Diagnoses - Skin Complaint Differential Diagnoses: Cellulitis, Drug Rash, Eczema, Impetigo - Diagnoses Provider Diagnosis: Insect bite of back wall of thorax Discharge - Sign-Out/Discharge Documenting (check all that apply): Patient Departure All imaging exams completed and their final reports reviewed: No Studies - Discharge Plan Condition: Stable Disposition: HOME Patient Education Materials: Insect Bite or Sting (ED) Referrals: Abi Herr PA [Primary Care Provider] - Additional Instructions: Not sure. Could be an insect bite or irritated skin lesion like a seborrheic keratosis. Follow up with the chief technologist appointment. - Billing Disposition and Condition Condition: STABLE Disposition: Home
== END 2019-04-04 13:03 | disposition home or self-care (01) ==
LOC: UCCORT 11:26
DX: S20.96XA Insect bite (nonvenomous) of unspecified parts of thorax, initial encounter (principal); W57.XXXA Bitten or stung by nonvenomous insect and other nonvenomous arthropods, initial encounter; Y92.9 Unspecified place or not applicable
CPT/HCPCS: 99211; G0463

== ENCOUNTER 2019-04-18 11:34 | Emergency (ER) | payer MEDICARE, BC ==
[2019-04-18 12:01] VITALS: BP 97/65
--- NOTE | 2019-04-18 12:13 | UC ---
Skin Complaint HPI - HPI Summary HPI Summary: Pt presents with c/o sudden onset of itchy rash to bilateral upper arms that began last evening. Pt states that the pinprick, mildly red raised rash is only "slightly itchy now" but was very itchy at night. - History of Current Complaint Chief Complaint: UCRash Time Seen by Provider: 04/18/19 12:08 Stated Complaint: SKIN RASH Hx Obtained From: Patient Onset/Duration: Sudden Onset, Still Present Skin Exposure Onset/Duration: Hours Ago Timing: Constant Onset Severity: Mild Current Severity: Mild Pain Intensity: 0 Location: Discrete - bilateral upper arms/forearms Character: Pruritus, Redness, Raised Aggravating Factor(s): Nothing Alleviating Factor(s): Unknown Associated Signs & Symptoms: Positive: Rash Related History: Possible Reaction to: Environmental Exposure - pt states that rash under his watch band was very "itchy" - Allergy/Home Medications Allergies/Adverse Reactions: Allergies Allergy/AdvReac Type Severity Reaction Status Date / Time gluten Allergy Unknown Verified 04/04/19 12:07 Reaction Details lactose Allergy Unknown Verified 04/04/19 12:07 Reaction Details codeine AdvReac Constipatio Verified 04/04/19 12:07 n Home Medications: Home Medications Fenofibrate [Tricor 160 MG] 160 mg PO EVERY OTHER DAY 04/18/19 [History Confirmed 04/18/19] raNITIdine HCl [Ranitidine HCl] 150 mg PO DAILY 04/18/19 [History Confirmed ] PMH/Surg Hx/FS Hx/Imm Hx Previously Healthy: Yes Endocrine History: Thyroid Disease - Surgical History Surgical History: Yes Surgery Procedure, Year, and Place: double hernia (inguinal). HEMORROID BANDING. pilonidal cyst. appy - Family History Known Family History: Positive: Hypertension - Social History Occupation: Retired Lives: With Family Alcohol Use: Rare Alcohol Amount: once Substance Use Type: None Smoking Status (MU): Never Smoked Tobacco Have You Smoked in the Last Year: No - Immunization History Most Recent Influenza Vaccination: May 2017 Most Recent Tetanus Shot: 12/20/16 Vaccination Up to Date: Yes Review of Systems All Other Systems Reviewed And Are Negative: Yes Constitutional: Positive: Negative Skin: Positive: Rash Eyes: Positive: Negative ENT: Positive: Negative Respiratory: Positive: Negative Cardiovascular: Positive: Negative Gastrointestinal: Positive: Negative Genitourinary: Positive: Negative Motor: Positive: Negative Neurovascular: Positive: Negative Musculoskeletal: Positive: Negative Neurological: Positive: Negative Psychological: Positive: Negative Is Patient Immunocompromised?: No Physical Exam Triage Information Reviewed: Yes Appearance: Well-Appearing Vital Signs: Initial Vital Signs Temp 98.4 F 04/18/19 11:55 Pulse 65 04/18/19 11:55 Resp 18 04/18/19 11:55 BP 97/65 04/18/19 11:55 Pulse Ox 99 04/18/19 11:55 Vital Signs Reviewed: Yes Eye Exam: Normal ENT Exam: Normal ENT: Positive: Hearing grossly normal Dental Exam: Normal Neck exam: Normal Respiratory: Positive: No respiratory distress Musculoskeletal Exam: Normal Neurological Exam: Normal Psychological Exam: Normal Skin: Positive: Rashes - scattered on bilateral anterior forearms, pinprick erythematous, raised linear, brooke tracks Course/Dx - Differential Diagnoses - Skin Complaint Differential Diagnoses: Contact Dermatitis, Scabies - Diagnoses Provider Diagnosis: Scabies Discharge - Sign-Out/Discharge Documenting (check all that apply): Patient Departure All imaging exams completed and their final reports reviewed: No Studies - Discharge Plan Condition: Stable Disposition: HOME Prescriptions: Permethrin 5% CREAM* 1 applic TOPICAL SEE INSTRUCTIONS #1 tube Patient Education Materials: Scabies (ED) Referrals: Tariq BUSH,Hamzah Burgos [Medical Doctor] - If Needed Abi Herr PA [Primary Care Provider] - As Soon As Possible Additional Instructions: The medication we have prescribed should be applied to skin from neck down avoiding genitals after taking a shower and prior to bedtime. Upon waking immediately take a shower. Please vacuum your mattress, floors and all funiture you sit in . You must change the sheets on your bed and was in hot water. - Billing Disposition and Condition Condition: STABLE Disposition: Home
== END 2019-04-18 12:34 | disposition home or self-care (01) ==
LOC: UCCORT 11:34
DX: B86 Scabies (principal)
CPT/HCPCS: 99212; G0463

== ENCOUNTER 2019-06-25 07:33 | Emergency (ER) | payer MEDICARE, BC ==
--- OUTSIDE RECORDS SUMMARY | 2019-06-25 08:03 | XMS REPORT | Continuity of Care Document ---
:1945 External Reference #:[id number] Author Name Dyllan Mtz MD (transmitted by agent of provider Raciel Pedro) Address [address] [place] [address] Care Team Providers Name Role Phone Abi Herr RPA - Medical Care Team Information Online Marketing Strategist [phone] Abi Herr RPA - Medical Care Team Information Online Marketing Strategist Jett Gutierrez MD - Care Team Information Online Marketing Strategist [phone] Gastroenterology Trino Zelaya - Urology Care Team Information Online Marketing Strategist [phone] Wendy Hamilton MD - Care Team Information Online Marketing Strategist [phone] Ophthalmology Problems Active Problems Provider Date Internal hemorrhoids Abi Herr PA Onset: 02/04/2019 Irritable bowel syndrome characterized by Abi Herr, PA Onset: 2018 constipation Diverticular disease Abi Herr, PA Onset: 02/04/2019 Flatulence, eructation and gas pain Abi Herr, PA Onset: 02/04/2019 Gluten sensitivity Abi Herr, PA Onset: 03/05/2019 Lactose free diet Abi Herr, PA Onset: 03/05/2019 Hiatal hernia Abi [place], PA Onset: 02/04/2019 Atrophic gastritis Abi Herr, PA Onset: 02/04/2019 Cataract Abi Herr, PA Onset: 02/04/2019 Glaucoma Abibridgett Herr, PA Onset: 02/04/2019 Developmental delay Abi Herr, PA Onset: 02/04/2019 Benign prostatic hypertrophy with outflow Abi Herr, PA Onset: 2018 obstruction Raised prostate specific antigen Abi Herr, PA Onset: 02/04/2019 Note: mild elevation Hyperlipidemia Abi Herr, PA Onset: 02/04/2019 Abdominal aortic aneurysm Abi Herr, PA Onset: 02/04/2019 Hypothyroidism Abi Herr, PA Onset: 02/04/2019 Cough variant asthma Abi Herr, PA Onset: 02/04/2019 Degenerative joint disease involving multiple Abi Herr PA Onset: 03/2019 joints Note: knees Social History Type Date Description Comments Sex Unknown ETOH Use Occasionally consumes alcohol Tobacco Use Start: Unknown Patient has never smoked Smoking Status Reviewed: 05/20/19 Patient has never smoked Exercise Type/Frequency Exercises regularly walking, skiing Allergies, Adverse Reactions, Alerts Active Allergies Reaction Severity Comments Date Amoxicillin / Clavulanate 03/05/2019 Medications Active Medications SIG Qnty Indications Ordering Date Provider Methylprednisolone use as directed 1units L20.9 Dyllan 04/29/2019 4mg TBPK MD Smith Lumigan 1 drop both [place], 04/25/2019 0.01% Solution eyes at bedtime MD Wendy Fenofibrate 1 by mouth 90tabs Dyllan 03/05/2019 160mg Tablets every other day MD Smith Polyethylene Glycol 3350 one capful 500gm 03/05/2019 3350 mixed with 17 MD Smith Granules ounces of liquid Multi Vitamin Daily 1 by mouth 30tabs 03/05/2019 Tablets every day MD Smith Probiotic Daily 1 by mouth 90caps 03/05/2019 Capsules every day MD Smith Vitamin D3 High Potency 1 by mouth 60caps Dyllan 03/05/2019 every day MD Smith 1000Unit Capsules Levothyroxine Sodium 1 by mouth 90tabs Dyllan 02/28/2019 75mcg every day MD Smith Tablets Montelukast Sodium 1 tab by mouth 90tabs 02/04/2019 10mg Tablets every day MD Smith Ranitidine 150 Maximum 1 tab by mouth Brenda Strength every day, MD Jett 150mg Tablets tapering as per GI 03/2019 Tamsulosin HCL 1 by mouth Trino Zelaya 0.4mg Capsules every day Permethrin use once now 60gm Dyllan 5% Cream and repeat once MD Smith again in 1 week over entire body Triamcinolone Acetonide Apply 1 2 Times Unknown 0.1% A Day On Legs Cream Arms as Needed For Rash History Medications Aspirin 1 by mouth every 90tabs Dyllan Mtz MD 03/05/2019 - 81mg day 03/05/[address] Gutierrez Description No Information Available Vital Signs Date Vital Result Comment 05/20/2019 1:13pm Weight 176.00 lb BP Systolic 114 mmHg BP Diastolic 74 mmHg 04/29/2019 3:49pm Height 70 inches 5'10" Weight 142.25 lb Heart Rate 72 /min BP Systolic Sitting 118 mmHg BP Diastolic Sitting 70 mmHg O2 % BldC Oximetry 94 % BMI (Body Mass Index) 20.4 kg/m2 Results Description No Information Available Procedures Date Code Description Status 04/25/2019 329251566 Diabetic Retinal Eye Exam Completed 05/14/2014 [id number] Colonoscopy Completed Medical Devices Description No Information Available Encounters Type Date Location Provider Dx Diagnosis Office Visit 04/29/2019 [facility] Dyllan L20.9 Atopic dermatitis, 4:00p MD Smith unspecified Office Visit 04/22/2019 [facility] Dyllan Ayala Scabies 1:45p MD Smith Office Visit 03/05/2019 [facility] Abi M25.569 Pain in 1:30p [place], [place] unspecified knee Office Visit 12/04/2018 [facility] AT Jesus Monson, L82.1 Other seborrheic 12:40p Alexandr BUSH keratosis L21.8 Other seborrheic dermatitis D22.62 Melanocytic nevi of left upper limb, including shoulder Assessments Date Code Description Provider 05/20/2019 L20.9 Atopic dermatitis, unspecified Dyllan Mtz MD 04/29/2019 L20.9 Atopic dermatitis, unspecified Dyllan Mtz MD 04/22/2019 B86 Scabies Dyllan Mtz MD 03/05/2019 M25.569 Pain in unspecified knee Abi [place], PA 12/04/2018 L82.1 Other seborrheic keratosis Jesus Monson MD 12/04/2018 L21.8 Other seborrheic dermatitis Jesus Monson MD 12/04/2018 D22.62 Melanocytic nevi of left upper limb, Jesus Monson MD including shoulder Plan of Treatment Future Appointment(s):07/09/2019 10:00 am - YVES Mackey at [facility]12/10/2019 10:30 am - Jesus Monson MD at [facility] AT [id number] - Dyllan Mtz MDL20.9 Atopic dermatitis, unspecified Functional Status Description No Information Available Mental Status Description No Information Available Referrals Description No Information Available
--- OUTSIDE RECORDS SUMMARY | 2019-06-25 08:03 | XMS REPORT | Continuity of Care Document ---
:1945 External Reference #:[id number] Author Name Rhiannon Sebastian Care Team Providers Name Role Phone Abi Herr RPA Primary Care Physician Unavailable Payers Date Identification Numbers Payment Provider Subscriber Policy Number: [id number] Medicare Zac Monterroso PayID: [id number] [address] [place] [address] Policy Number: [id number] [facility] Zac Monterroso PayID: [id number] [address] [address] [place] [address] Problems Active Problems Provider Date Internal hemorrhoids Abi Herr, PA Onset: 02/04/2019 Irritable bowel syndrome characterized by Abi Herr, PA Onset: 2018 constipation Diverticular disease Abibridgett Herr, PA Onset: 02/04/2019 Flatulence, eructation and gas pain Abi Herr, PA Onset: 02/04/2019 Gluten sensitivity Abibridgett Herr, PA Onset: 03/05/2019 Lactose free diet Abibridgett Herr, PA Onset: 03/05/2019 Hiatal hernia Abi Herr, PA Onset: 02/04/2019 Atrophic gastritis Abi Herr, PA Onset: 02/04/2019 Cataract Abi Nemesio, PA Onset: 02/04/2019 Glaucoma Abi Nemesio, PA Onset: 02/04/2019 Developmental delay Abi Nemesio, PA Onset: 02/04/2019 Benign prostatic hypertrophy with outflow Abibridgett Herr, PA Onset: 2018 obstruction Raised prostate specific antigen Abibridgett Herr, PA Onset: 02/04/2019 Note: mild elevation Hyperlipidemia Abi Herr, PA Onset: 02/04/2019 Abdominal aortic aneurysm Abi Herr, PA Onset: 02/04/2019 Hypothyroidism Abi Herr, PA Onset: 02/04/2019 Cough variant asthma YVES Mackey Onset: 02/04/2019 Degenerative joint disease involving multiple YVES Mackey Onset: 03/2019 joints Note: knees Family History Date Family Member(s) Observation Comments Father Heart Disease Mouth Cancer,Pipe Smoker,Alcohol Abuse Mother Heart Disease Mother Arthritis Social History Type Date Description Comments Sex Unknown Lives With Alone Diet Healthy, Well Balanced Occupation Retired ETOH Use Occasionally consumes alcohol Tobacco Use Start: Unknown Patient has never smoked Smoking Status Reviewed: 04/29/19 Patient has never smoked Exercise Type/Frequency Exercises [...] Multi Vitamin Daily 1 by mouth 30tabs Dyllan 03/05/2019 Tablets every day MD Smith Probiotic Daily 1 by mouth 90caps 03/05/2019 Capsules every day MD Smith Vitamin D3 High Potency 1 by mouth 60caps Dyllan 03/05/2019 every day MD Smith 1000Unit Capsules Levothyroxine Sodium 1 by mouth 90tabs Dyllan 02/28/2019 75mcg every day MD Smith Tablets Montelukast Sodium 1 tab by mouth 90tabs Dyllan 02/04/2019 10mg Tablets every day MD Smith Ranitidine 150 Maximum 1 tab by mouth Brenda Strength every day, MD Jett 150mg Tablets tapering as per GI 03/2019 Tamsulosin HCL 1 by mouth Trino Zelaya 0.4mg Capsules every day Permethrin use once now 60gm Dyllan 5% Cream and repeat once MD Smith again in 1 week over entire body History Medications Aspirin 1 by mouth every 90tabs Dyllan Mtz MD 03/05/2019 - 81mg day 03/05/[address] Vital Signs Date Vital Result Comment 04/29/2019 3:49pm Height 70 inches 5'10" Weight 142.25 lb Heart Rate 72 /min BP Systolic Sitting 118 mmHg BP Diastolic Sitting 70 mmHg O2 % BldC Oximetry 94 % BMI (Body Mass Index) 20.4 kg/m2 04/22/2019 1:55pm Weight 176.00 lb 03/05/2019 1:43pm Height 70 inches 5'10" Weight 178.00 lb Heart Rate 62 /min BP Systolic Sitting 116 mmHg BP Diastolic Sitting 78 mmHg O2 % BldC Oximetry 97 % BMI (Body Mass Index) 25.5 kg/m2 Procedures Date Code Description Status 04/25/2019 155654630 Diabetic Retinal Eye Exam Completed 05/14/2014 [id number] Colonoscopy Completed Encounters Type Date Location Provider Dx Diagnosis Office Visit 04/29/2019 [facility] Dyllan L20.9 Atopic dermatitis, 4:00p MD Smith unspecified Office Visit 04/22/2019 [facility] Dyllan B86 Scabies 1:45p MD Smith Office Visit 03/05/2019 [facility] Abi M25.569 Pain in 1:30p YVES Herr unspecified knee Office Visit 12/04/2018 [facility] AT Jesus Monson, L82.1 Other seborrheic 12:40p Alexandr BUSH keratosis L21.8 Other seborrheic dermatitis D22.62 Melanocytic nevi of left upper limb, including shoulder Plan of Treatment Future Appointment(s):05/20/2019 1:45 pm - Dyllan Mtz MD at [facility]05/15/2019 10:20 am - Jesus Monson MD at [facility] AT [email or web address]/08/2019 10:00 am - YVES Mackey at [facility]2019 10:30 am - Jesus Monson MD at [facility] AT Idoxqbhf80/29/2019 - Dyllan Mtz MDL20.9 Atopic dermatitis, unspecifiedNew Medication: Methylprednisolone 4 mg - use as directedFollow up:2 weeks.
--- OUTSIDE RECORDS SUMMARY | 2019-06-25 08:03 | XMS REPORT | Continuity of Care Document ---
:1945 External Reference #:[id number] Author Name Rhiannon Sebastian Care Team Providers Name Role Phone Abi Herr RPA Primary Care Physician Unavailable Payers Date Identification Numbers Payment Provider Subscriber Policy Number: [id number] Medicare aZc Monterroso PayID: [id number] [address] [place] [address] Policy Number: [id number] [facility] Zac Monterroso PayID: [id number] [address] [address] [place] [address] Problems Active Problems Provider Date Internal hemorrhoids [...] kg/m2 Procedures Date Code Description Status 04/25/2019 [id number] Diabetic Retinal Eye Exam Completed 05/14/2014 [id number] Colonoscopy Completed Encounters Type Date Location Provider Dx Diagnosis Office Visit 03/05/2019 [facility] Abi M25.569 Pain in 1:30p YVES Herr unspecified knee Office Visit 12/04/2018 [facility] AT Jesus Monson, L82.1 Other seborrheic 12:40p Elliott keratosis L21.8 Other seborrheic dermatitis D22.62 Melanocytic nevi of left upper limb, including shoulder Plan of Treatment Future Appointment(s):05/20/2019 1:45 pm - Dyllan Mtz MD at [facility]05/15/2019 10:20 am - Jesus Monson MD at [facility] Dermat[facility] AT Nozqgdhh31/08/2019 10:00 am - YVES Mackey at [facility]2019 10:30 am - Jesus Monson MD at [facility] Dermatology AT Yacupfxl81/29/2019 - Dyllan Mtz MDL20.9 Atopic dermatitis, unspecifiedNew Medication: Methylprednisolone 4 mg - use as directedFollow up:2 weeks.
[2019-06-25 08:27] VITALS: BP 105/67
--- NOTE | 2019-06-25 08:37 | UC ---
Ear Complaint HPI - HPI Summary HPI Summary: left ear fullness x 3 days no ear pain , no cold symptoms hx of cerumen impaction difficulty hearing from his left ear no fever, no chills, no cold sx - History of Current Complaint Chief Complaint: UCEar Stated Complaint: LEFT EAR COMPLAINT Time Seen by Provider: 06/25/19 08:29 Hx Obtained From: Patient Onset/Duration: Gradual Onset, Lasting Days - 3, Still Present Severity Initially: Moderate Severity Currently: Moderate Pain Intensity: 0 Aggravating Factors: Nothing Alleviating Factors: Nothing Associated Signs/Symptoms: Positive: Hearing Loss. Negative: Discharge, Foreign Body Sensation, Trauma to Ear, Swelling @, URI Symptoms - Allergies/Home Medications Allergies/Adverse Reactions: Allergies Allergy/AdvReac Type Severity Reaction Status Date / Time gluten Allergy Unknown Verified 06/25/19 08:27 Reaction Details lactose Allergy Unknown Verified 06/25/19 08:27 Reaction Details codeine AdvReac Constipatio Verified 06/25/19 08:27 n Home Medications: Home Medications Bimatoprost 0.01% OPHTH (NF) [Lumigan 0.01% OPHTH (NF)] 1 drop BOTH EYES BEDTIME 06/25/19 [History Confirmed 06/25/19] PMH/Surg Hx/FS Hx/Imm Hx - Additional Past Medical History Additional PMH: prostate enlargement, aortic anurysm Endocrine History: Thyroid Disease - Surgical History Surgical History: Yes Surgery Procedure, Year, and Place: double hernia (inguinal). HEMORROID BANDING. pilonidal cyst. appendectomy - Family History Known Family History: Positive: Hypertension - Social History Alcohol Use: Rare Alcohol Amount: once Substance Use Type: None Smoking Status (MU): Never Smoked Tobacco Have You Smoked in the Last Year: No - Immunization History Most Recent Influenza Vaccination: May 2017 Most Recent Tetanus Shot: 12/20/16 Vaccination Up to Date: Yes Review of Systems All Other Systems Reviewed And Are Negative: Yes Constitutional: Positive: Negative Skin: Positive: Negative Eyes: Positive: Negative ENT: Positive: Negative Respiratory: Positive: Negative Cardiovascular: Positive: Negative Is Patient Immunocompromised?: No Physical Exam Triage Information Reviewed: Yes Appearance: Well-Appearing, No Pain Distress, Well-Nourished Vital Signs: Initial Vital Signs Temp 98 F 06/25/19 08:24 Pulse 65 06/25/19 08:24 Resp 18 06/25/19 08:24 BP 105/67 06/25/19 08:24 Pulse Ox 98 06/25/19 08:24 Vital Signs Reviewed: Yes Eye Exam: Normal Eyes: Positive: Conjunctiva Clear ENT: Positive: Normal ENT inspection, Hearing grossly normal, Pharynx normal, Other - cerument impaction bilateral ears , left > Right Neck: Positive: Supple, Nontender, No Lymphadenopathy Respiratory: Positive: Chest non-tender, Lungs clear, Normal breath sounds Cardiovascular: Positive: RRR, No Murmur, Pulses Normal Ear Complaint Course/Dx - Differential Dx/Diagnosis Provider Diagnosis: Impacted cerumen of both ears Discharge ED - Sign-Out/Discharge Documenting (check all that apply): Patient Departure All imaging exams completed and their final reports reviewed: No Studies - Discharge Plan Condition: Stable Disposition: HOME Patient Education Materials: Cerumen Impaction (ED) Referrals: Abi Herr PA [Primary Care Provider] - If Needed - Billing Disposition and Condition Condition: STABLE Disposition: Home
== END 2019-06-25 08:58 | disposition home or self-care (01) ==
LOC: UCCORT 07:33
DX: H61.23 Impacted cerumen, bilateral (principal); Z88.5 Allergy status to narcotic agent
CPT/HCPCS: 99213; G0463